=== PATIENT | male | born 1965 | race African-American/Black ===

== ENCOUNTER 2017-05-07 08:43 | Inpatient (IN) | payer SELFPAY ==
[2017-05-07] MEDS ORDERED: Etomidate* 2 MG/ML 20 ML VIAL (40 MG) ONE (08:47)
[2017-05-07] MEDS ORDERED: Succinylcholine* 20 MG/ML 10 ML VIAL ONE (08:47)
[2017-05-07] MEDS ORDERED: Midazolam* 1 MG/ML 10 ML VIAL (10 MG) ONE ×2 (08:47→11:27)
[2017-05-07] MEDS ORDERED: Amiodarone 360 MG IVPREMIX* 360 MG/200 ML BAG IV ONE ×3 (08:50→20:26)
[2017-05-07] MEDS ORDERED: Amiodarone 150 MG IVPREMIX* 150 MG/100 ML BAG IV ONE (08:50)
[2017-05-07] MEDS ORDERED: Aspirin SUPP* 300 MG PR ONE (08:58)
[2017-05-07] MEDS ORDERED: Heparin for STEMI(*) 5,000 UNITS/ML 1 ML VIAL IV ONE (09:02)
[2017-05-07] MEDS ORDERED: Propofol* 10 MG/ML 20 ML BTL IV PUSH ONE (09:11)
[2017-05-07] MEDS ORDERED: Propofol* 10 MG/ML 100 ML BTL ONE (09:14)
[2017-05-07 09:17] LABS: ABS Basophils 0.1 10^3/ul (0-0.2); ABS Eosinophils 0 10^3/ul (0-0.6); ABS Lymphocytes 2.1 10^3/ul (1.0-4.8); ABS Monocytes 0.7 10^3/ul (0-0.8); ABS Nucleated RBC 0 10^3/ul; Eosinophil % 0.2 % (0-6); Hematocrit 37 % (42-52); Hemoglobin 11.8 g/dl (14.0-18.0); Lymphocyte % 23.4 % (25-47); Mean Corpuscular HGB Conc 32 g/dl (31-36); Mean Corpuscular Hemoglobin 30 pg (27-31); Mean Corpuscular Volume 93 fL (80-94); Mean Platelet Volume 8 um3 (7.4-10.4); Nucleated Red Blood Cells % 0; Platelet Count 336 10^3/ul (150-450); Red Blood Count 3.93 10^6/ul (4.0-5.4); Red Cell Distribution Width 14 % (10.5-15); White Blood Count 8.9 10^3/ul (3.5-10.8)
[2017-05-07 09:27] LABS: INR 1.1 (0.77-1.02)
[2017-05-07 09:34] LABS: EGFR Non-African American 68.8 (>60)
[2017-05-07] MEDS ORDERED: Ticagrelor* 90 MG TAB PO ONE (09:35)
[2017-05-07] MEDS ORDERED: Iohexol 350 (CONTRAST) 200 ML MDV IV ONE ×2 (09:42→11:18)
[2017-05-07] MEDS ORDERED: Heparin(*) 1000 UNIT/ML 10 ML VIAL CATH LAB IV ONE ×2 (10:21→11:24)
[2017-05-07 10:46] LABS: EGFR Non-African American 88.6 (>60)
[2017-05-07] MEDS ORDERED: Nitroglycerin TAB 0.4 MG* 0.4 MG TAB SL PRN (11:11)
[2017-05-07] MEDS ORDERED: NS 0.9% 1000 ML* 1,000 ML IV SCH ×2 (11:15→14:51)
[2017-05-07] MEDS ORDERED: NITROGLYCERIN DRIP ONE (11:18)
[2017-05-07] MEDS ORDERED: Heparin 2 UNITS/ML IVPREMIX* 3,000 ML IV ONE (11:18)
[2017-05-07] MEDS ORDERED: Lidocaine 1% INJ* 10 MG/ML 30 ML SDV ONE (11:18)
[2017-05-07] MEDS ORDERED: VERAPAMIL 2.5 MG/ML 2 ML VIAL ** 5 mg/2 ml ONE (11:25)
[2017-05-07] MEDS ORDERED: Meperidine SYRINGE* 50 MG/ML ONE (11:45)
[2017-05-07] MEDS ORDERED: Meperidine SYRINGE* 50 MG/ML IV ONE (12:00)
[2017-05-07] MEDS ORDERED: Midazolam* 1 MG/ML 2 ML VIAL (2 MG) IV ONE (12:19)
[2017-05-07] MEDS ORDERED: Midazolam* 1 MG/ML 2 ML VIAL (2 MG) ONE (12:20)
[2017-05-07] MEDS ORDERED: VECURONIUM BROMIDE 10 MG INJ IV STA (12:20)
[2017-05-07] MEDS ORDERED: Meperidine SYRINGE* 50 MG/ML IV PRN ×2 (12:22→13:51)
[2017-05-07] MEDS ORDERED: busPIRone TAB* 30 MG PO PRN (12:27)
[2017-05-07] MEDS ORDERED: niCARdipine 0.1MG/ML IVPREMIX* 20 MG/200 ML BAG ONE (12:50)
[2017-05-07] MEDS ORDERED: hydrALAZINE IV* 20 MG/ML VIAL ONE (12:52)
[2017-05-07] MEDS ORDERED: Acetaminophen ADULT LIQ* 650 MG/20.3 ML UDC NG TUBE PRN (12:52)
[2017-05-07] MEDS ORDERED: Labetalol IV* 5 MG/ML 20 ML VIAL ONE (12:59)
[2017-05-07] MEDS: Propofol* 1000 MG (10 MG/ML 100 ml) @ Per Protocol (in ICU Pyxis) IV SCH ×3 (13:13→22:43)
[2017-05-07] MEDS ORDERED: niCARdipine 0.1MG/ML IVPREMIX* 20 MG/200 ML BAG IV SCH (14:00)
[2017-05-07] MEDS: Midazolam IV for DRIP* 100 MG in NS 0.9% 100 ML* 80 ML IV SCH (14:00)
--- NOTE | 2017-05-07 14:18 | RAD ---
INDICATION: Endotracheal tube placement. COMPARISON: There are no prior studies available for comparison. TECHNIQUE: A portable view of the chest was obtained. FINDINGS: The patient is status post endotracheal tube placement. The catheter tip projects over the midline approximately 5 cm above the serjio. There is a nasogastric tube which demonstrates normal course and projects over the left upper quadrant and off the film. There is also a catheter which projects to the right of the midline overlying the right upper quadrant. The catheter tip is likely in the region of the inferior vena cava. The heart is within normal limits in size for this portable exam. The lungs are clear. No pleural effusion is seen. IMPRESSION: 1. STATUS POST ENDOTRACHEAL AND NASOGASTRIC TUBE PLACEMENT. 2. THERE IS A CATHETER WHICH PROJECTS OVER THE RIGHT UPPER QUADRANT POSSIBLY A CENTRAL LINE. RECOMMEND CLINICAL CORRELATION.
--- NOTE | 2017-05-07 14:25 | ED ---
Jose Nowak Angela, scribed for Nikhil Ames MD on 05/07/17 at 0902 . HPI Cardiac - HPI Summary HPI Summary: OVERHEAD STEMI ALERT at 08:30, ETA 10 minutes. This pt is a 51 y/o male presenting to [facility] via EMS for unresponsiveness. 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 Per EMS, coworker started CPR on the pt. EMS arrives at site and pt is shocked twice and pt's pulses return. EMS reports the pt became unresponsive at approximately 08: 05. EMS states EKG shows inferior infarct but they are unable to transmit their EKG to the ED at 08:30 AM. HPI IS LIMITED DUE TO LEVEL 5 CAVEAT - pt is unresponsive. - History of Current Complaint Stated Complaint: UNRESPOSIVE Hx Obtained From: EMS Hx From Patient Unobtainable Due To: Other - level 5 caveat - pt is unresponsive Onset/Duration: Still Present Timing: Constant Aggravating Factor(s): Nothing Alleviating Factor(s): Nothing Associated Signs and Symptoms: Positive: Other: - unresponsive - Allergy/Home Medications Allergies/Adverse Reactions: Allergies Allergy/AdvReac Type Severity Reaction Status Date / Time No Known Allergies Allergy Verified 05/07/17 10:57 Home Medications: Home Medications Unobtainable [Unobtainable] 05/07/17 [History] PMH/Surg Hx/FS Hx/Imm Hx Previously Healthy: No - unknown due to level 5 caveat - pt is unresponsive Infectious Disease History: Denies: Traveled Outside the [place] in Last 30 Days - Family History Known Family History: Positive: Unknown - due to level 5 caveat - pt is unresponsive - Social History Alcohol Use: unknown due to level 5 caveat - pt is unresponsive Substance Use Comment - Amount & Last Used: unknown due to level 5 caveat - pt is unresponsive Smoking Status (MU): Unknown if Ever Smoked Review of Systems - ROS Summary Review of Systems Summary: ROS IS LIMITED DUE TO LEVEL 5 CAVEAT - pt is unresponsive Negative: Fever Neurological: Other - unresponsive All Other Systems Reviewed And Are Negative: No Physical Exam - Summary Physical Exam Summary: General: unresponsive Skin: warm, color reflects adequate perfusion, dry Head: normal ENT: intubated Neck: supple, nontender Respiratory: breath sounds present Cardiovascular: heart sounds are present Abdomen: soft, nontender Bowel: present Musculoskeletal: femoral pulses are present Neurological: unresponsive. Psychological: pt is unresponsive Triage Information Reviewed: Yes Vital Signs On Initial Exam: Initial Vitals Temp Pulse Resp BP Pulse Ox 0 F 0 0 00/0 0 05/07/17 08:43 05/07/17 08:43 05/07/17 08:43 05/07/17 08:43 05/07/17 08:43 Vital Signs Reviewed: Yes Procedures - Intubation Time of Intubation: 08:47 - using rapid sequence intubation #8 ET tube. Intubation Method: orotracheal Tube Size (cm): 8.0 Medications: Succinylcholine, Versed Breath Sounds after Intubation: equal Intubation Complications: no complications Progress/Xray Impression: Positive CO2 back and positive breath sounds bilaterally after intubation. Diagnostics - Vital Signs Vital Signs Temp Pulse Resp BP Pulse Ox 05/07/17 09:07 0 F 94 18 170/117 100 05/07/17 08:43 0 F 0 0 00/0 0 - Laboratory Lab Results: Lab Results 05/07/17 05/07/17 05/07/17 Range/Units 08:54 08:54 08:54 WBC 8.9 (3.5-10.8) 10^3/ul RBC 3.93 L (4.0-5.4) 10^6/ul Hgb 11.8 L (14.0-18.0) g/dl Hct 37 L (42-52) % MCV 93 (80-94) fL MCH 30 (27-31) pg MCHC 32 (31-36) g/dl RDW 14 (10.5-15) % Plt Count 336 (150-450) 10^3/ul MPV 8 (7.4-10.4) um3 Neut % (Auto) 67.3 (38-83) % Lymph % (Auto) 23.4 L (25-47) % [place] % (Auto) 7.9 (1-9) % Eos % (Auto) 0.2 (0-6) % Baso % (Auto) 1.2 (0-2) % Absolute Neuts (auto) 6.0 (1.5-7.7) 10^3/ul Absolute Lymphs (auto) 2.1 (1.0-4.8) 10^3/ul Absolute Monos (auto) 0.7 (0-0.8) 10^3/ul Absolute Eos (auto) 0 (0-0.6) 10^3/ul Absolute Basos (auto) 0.1 (0-0.2) 10^3/ul Absolute Nucleated RBC 0 10^3/ul Nucleated RBC % 0 INR (Anticoag Therapy) 1.10 H (0.77-1.02) APTT 29.3 (26.0-36.3) seconds ABG pH (7.35-7.45) ABG pCO2 (35-45) mmHg ABG pO2 (80-100) mmHg ABG HCO3 (19-31) mmol/L ABG O2 Saturation (95-98) % ABG Base Excess (-2.0-2.0) Sodium (133-145) mmol/L Potassium Chloride (101-111) mmol/L Carbon Dioxide (22-32) mmol/L Anion Gap (2-11) mmol/L BUN (6-24) mg/dL Creatinine (0.67-1.17) mg/dL Est GFR ( Amer) (>60) Est GFR (Non-Af Amer) (>60) BUN/Creatinine Ratio (8-20) Glucose (70-100) mg/dL Lactic Acid (0.5-2.0) mmol/L Calcium (8.6-10.3) mg/dL Total Bilirubin (0.2-1.0) mg/dL AST ALT (7-52) U/L Alkaline Phosphatase (34-104) U/L Total Creatine Kinase (10-223) U/L CK-MB (CK-2) (0.6-6.3) ng/mL Troponin I (<0.04) ng/mL B-Natriuretic Peptide 1345 H ( - 100) pg/mL Total Protein (6.4-8.9) g/dL Albumin (3.2-5.2) g/dL Globulin (2-4) g/dL Albumin/Globulin Ratio (1-3) LDL Cholesterol Direct mg/dL 05/07/17 05/07/17 05/07/17 Range/Units 08:54 08:54 09:28 WBC (3.5-10.8) 10^3/ul RBC (4.0-5.4) 10^6/ul Hgb (14.0-18.0) g/dl Hct (42-52) % MCV (80-94) fL MCH (27-31) pg MCHC (31-36) g/dl RDW (10.5-15) % Plt Count (150-450) 10^3/ul MPV (7.4-10.4) um3 Neut % (Auto) (38-83) % Lymph % (Auto) (25-47) % [place] % (Auto) (1-9) % Eos % (Auto) (0-6) % Baso % (Auto) (0-2) % Absolute Neuts (auto) (1.5-7.7) 10^3/ul Absolute Lymphs (auto) (1.0-4.8) 10^3/ul Absolute Monos (auto) (0-0.8) 10^3/ul Absolute Eos (auto) (0-0.6) 10^3/ul Absolute Basos (auto) (0-0.2) 10^3/ul Absolute Nucleated RBC 10^3/ul Nucleated RBC % INR (Anticoag Therapy) (0.77-1.02) APTT (26.0-36.3) seconds ABG pH 7.40 (7.35-7.45) ABG pCO2 34 L (35-45) mmHg ABG pO2 114 H (80-100) mmHg ABG HCO3 22.5 (19-31) mmol/L ABG O2 Saturation 100.1 H (95-98) % ABG Base Excess -3.1 L (-2.0-2.0) Sodium 139 (133-145) mmol/L Potassium TNP Chloride 104 (101-111) mmol/L Carbon Dioxide 23 (22-32) mmol/L Anion Gap 12 H (2-11) mmol/L BUN 16 (6-24) mg/dL Creatinine 1.12 (0.67-1.17) mg/dL Est GFR ( Amer) 88.5 (>60) Est GFR (Non-Af Amer) 68.8 (>60) BUN/Creatinine Ratio 14.3 (8-20) Glucose 162 H (70-100) mg/dL Lactic Acid 5.0 H* (0.5-2.0) mmol/L Calcium 9.3 (8.6-10.3) mg/dL Total Bilirubin 0.50 (0.2-1.0) mg/dL AST TNP ALT 50 (7-52) U/L Alkaline Phosphatase 128 H (34-104) U/L Total Creatine Kinase 280 H (10-223) U/L CK-MB (CK-2) 2.9 (0.6-6.3) ng/mL Troponin I 0.47 H* (<0.04) ng/mL B-Natriuretic Peptide ( - 100) pg/mL Total Protein 8.0 (6.4-8.9) g/dL Albumin 3.8 (3.2-5.2) g/dL Globulin 4.2 H (2-4) g/dL Albumin/Globulin Ratio 0.9 L (1-3) LDL Cholesterol Direct 101 mg/dL 05/07/17 05/07/17 Range/Units 09:53 10:15 WBC (3.5-10.8) 10^3/ul RBC (4.0-5.4) 10^6/ul Hgb (14.0-18.0) g/dl Hct (42-52) % MCV (80-94) fL MCH (27-31) pg MCHC (31-36) g/dl RDW (10.5-15) % Plt Count (150-450) 10^3/ul MPV (7.4-10.4) um3 Neut % (Auto) (38-83) % Lymph % (Auto) (25-47) % [place] % (Auto) (1-9) % Eos % (Auto) (0-6) % Baso % (Auto) (0-2) % Absolute Neuts (auto) (1.5-7.7) 10^3/ul Absolute Lymphs (auto) (1.0-4.8) 10^3/ul Absolute Monos (auto) (0-0.8) 10^3/ul Absolute Eos (auto) (0-0.6) 10^3/ul Absolute Basos (auto) (0-0.2) 10^3/ul Absolute Nucleated RBC 10^3/ul Nucleated RBC % INR (Anticoag Therapy) (0.77-1.02) APTT (26.0-36.3) seconds ABG pH (7.35-7.45) ABG pCO2 (35-45) mmHg ABG pO2 (80-100) mmHg ABG HCO3 (19-31) mmol/L ABG O2 Saturation (95-98) % ABG Base Excess (-2.0-2.0) Sodium 137 (133-145) mmol/L Potassium 3.6 3.6 Chloride 106 (101-111) mmol/L Carbon Dioxide 22 (22-32) mmol/L Anion Gap 9 (2-11) mmol/L BUN 16 (6-24) mg/dL Creatinine 0.90 (0.67-1.17) mg/dL Est GFR ( Amer) 114.0 (>60) Est GFR (Non-Af Amer) 88.6 (>60) BUN/Creatinine Ratio 17.8 (8-20) Glucose 136 H (70-100) mg/dL Lactic Acid (0.5-2.0) mmol/L Calcium 8.1 L (8.6-10.3) mg/dL Total Bilirubin (0.2-1.0) mg/dL AST 83 H ALT (7-52) U/L Alkaline Phosphatase (34-104) U/L Total Creatine Kinase (10-223) U/L CK-MB (CK-2) (0.6-6.3) ng/mL Troponin I (<0.04) ng/mL B-Natriuretic Peptide ( - 100) pg/mL Total Protein (6.4-8.9) g/dL Albumin (3.2-5.2) g/dL Globulin (2-4) g/dL Albumin/Globulin Ratio (1-3) LDL Cholesterol Direct mg/dL Result Diagrams: 05/07/17 08:54 05/07/17 10:15 Lab Statement: Any lab studies that have been ordered have been reviewed, and results considered in the medical decision making process. - EKG 08:45 Cardiac Rate: Tachycardia EKG Rhythm: Sinus Tachycardia - at 106 bpm Ectopy: None EKG Interpretation: Anterior MT. Re-Evaluation - Re-Evaluation First Eval Re-Evaluation Time: 09:02 Comment: Dr. Martínez, short filler bunch machine operator, at bedside. Disposition - Course Course Of Treatment: In the ED course the pt was given aspirin and heparin. Pt was not ventilating adequately on his own and not protecting his airway; intubated using rapid sequence intubation with a #8 ET tube, 23cm at the teeth. There was positive CO2 back and positive breath sounds bilaterally after intubation. I discussed pt care with Dr. Zhang and Dr. Martínez. TAKEN TO THE DIRECTOR OF CUSTOMER ACQUISITION BY DR ZHANG. - Diagnoses Provider Diagnoses: Respiratory failure During the Visit The Following Alert/Code Occurred: STEMI - overhead at 08:30, ETA 10 minutes - Physician Notifications Discussed Care Of Patient With: Francisco Zhang Time Discussed With Above Provider: 08:29 Instructed by Provider To: Other - I discussed pt care with Dr. Zhang, who reports to call a STEMI alert. - Critical Care Time Critical Care Time: 30-74 min Discharge - Discharge Plan Condition: Critical Disposition: ADMITTED TO [facility] The documentation as recorded by the Jose sahu Angela accurately reflects the service I personally performed and the decisions made by me, Nikhil mAes MD.
[2017-05-07] MEDS ORDERED: VECURONIUM BROMIDE 10 MG INJ IV ONE (14:56)
[2017-05-07] MEDS ORDERED: Cisatracurium* 100 MG in NS 0.9% 250 ML* 200 ML IVPB SCH (15:00)
--- NOTE | 2017-05-07 15:16 | HP ---
H&P (Free Text) History and Physical: History and Physical - Critical Care Limitations in history/physical: intubated, post arrest Date of admission: 05/07/2017 HPI: 51y M with unknown past medical history. Patient was found down at his work , no trauma but suddenly collapsed. Bystander CPR started, EMS called. On Arrival given 2 defibrillations, ROSC was achieved and no further CPR as I was told. They noted ST elevations on EMS EKG but unable to transmit. On arrival to ER, EKG with anterior ST elevations noted. Code called (ABC and STEMI). Patient was not responsive, poor resp effort, intubated by ER physician. BP stable 90- 100s, in NSR. Given asa. I/O already in place on right tibia. Taken to [facility] for emergent angiogram/cath. Cath demonstrated occluded LAD with collaterals. Attempt made to cross lesion but unable to. Cardiology has mentioned this appeared to be a chronic occlusion with collaterals. He returned to ICU, intubated, on propofol sedation. 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 No heparin. On IV nitroglycerin infusion. Very hypertensive to 220-240s systolic. Given hydralazine 20mg iv push and then labetalol 10mg iv push. Started cardene infusion. On propofol, added versed 2mg iv push, then infusion. Given vecuronium 7mg iv push only. Amiodarone infusion. Hypothermia protocol started. Discussed with family at bedside now about current condition, they are aware of status and hypothermia protocol. ROS: unable, intubated/post arrest PMHx: none PSHx: h/o trauma with metal plate in head, ACLS tear in past. 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 Allergies: NKDA Home Medications: Unobtainable [Unobtainable] 05/07/17 [History] Tele: NSR Vitals: Vital Signs Temp 0 F 05/07/17 09:07 Pulse 94 05/07/17 09:07 Resp 17 05/07/17 14:00 BP 170/117 05/07/17 09:07 Pulse Ox 100 05/07/17 09:07 Intake & Output 05/06/17 05/07/17 05/07/17 18:59 06:59 18:59 Intake Total 43 Balance 43 Weight 140 lb Intake: Medicated IV 43 CC - Nitroglycerine/ 43 Tridil O2/Vent: 16/500/+5/40% Infusions: propofol, versed, NS, cardene (on hold) Current Medications: Acetaminophen (Tylenol Adult Liq*) 650 mg NG TUBE Q4H PRN PRN Reason: TEMP > TARGET 33 DEG. CELCIUS Aspirin (Aspirin Low Dose Tab*) 81 mg NG TUBE DAILY GERARD Atorvastatin Calcium (Lipitor*) 80 mg NG TUBE 1700 GERARD Buspirone HCl (Buspar Tab*) 30 mg PO Q8H PRN PRN Reason: shivering Chlorhexidine Gluconate (Peridex Mouth Wash 0.12%*) 15 ml TOPICAL Q4H GERARD Heparin Sodium (Porcine) (Heparin Vial(*)) 5,000 units SUBCUT Q8HR GERARD Midazolam HCl 100 mg/ Sodium (Chloride) 100 mls @ 3 mls/hr IV Q24H GERARD; 3 MG/HR PRN Reason: Protocol Last Admin: 05/07/17 14:00 Dose: 3 mls/hr Propofol (Diprivan*) 100 mls @ 19.051 mls/hr IV .(Initial Rate) GERARD; 50 MCG/KG/ MIN PRN Reason: Protocol Last Admin: 05/07/17 13:13 Dose: 25.5 mls/hr Nicardipine/Sodium Chloride (Cardene 0.1mg/Ml Ivpremix*) 20 mg in 200 mls @ 100 mls/hr IV .per rate GERARD PRN Reason: 10 MG/HR Amiodarone HCl (Nexterone 360 Mg/200 Ml Ivpremix*) 360 mg in 200 mls @ 33.333 mls/hr IV ONCE ONE PRN Reason: 1 MG/MIN Stop: 05/07/17 19:54 Sodium Chloride (Ns 0.9% 1000 Ml*) 1,000 mls @ 75 mls/hr IV .per rate GERARD Cisatracurium Besylate 100 mg/ (Sodium Chloride) 250 mls @ 19.05 mls/hr IVPB .per rate GERARD PRN Reason: 2 MCG/KG/MIN Meperidine HCl (Demerol Syringe*) 25 mg IV Q4H PRN PRN Reason: shivering Metoprolol Tartrate (Lopressor Tab*) 25 mg PO Q6H GERARD Nitroglycerin (Nitroglycerin Tab 0.4 Mg*) 0.4 mg SL Q5M PRN PRN Reason: ANGINA Pantoprazole Sodium (Protonix Iv*) 40 mg IV DAILY [facility] Physical Exam: General: intubated, sedated/unresponsive Head: normocephalic, atraumatic HEENT: no pallor, no icterus, moist mucous membranes Neck: soft, supple, no jvd, CVS: normal rate, regular, no murmur Resp: bilateral air entry, no rhales, no wheeze, no rhonchi, no acc muscle use Abdomen: soft, nondistended, bowel sounds present Ext: pulses+, cool, no edema Skin: intact, no breakdown, no dryness Neuro: intubated, sedated/unresponsive Labs: Laboratory Results - last 24 hr 05/07/17 05/07/17 05/07/17 08:54 08:54 08:54 WBC 8.9 RBC 3.93 L Hgb 11.8 L Hct 37 L MCV 93 MCH 30 MCHC 32 RDW 14 Plt Count 336 MPV 8 Neut % (Auto) 67.3 Lymph % (Auto) 23.4 L [place] % (Auto) 7.9 Eos % (Auto) 0.2 Baso % (Auto) 1.2 Absolute Neuts (auto) 6.0 Absolute Lymphs (auto) 2.1 Absolute Monos (auto) 0.7 Absolute Eos (auto) 0 Absolute Basos (auto) 0.1 Absolute Nucleated RBC 0 Nucleated RBC % 0 INR (Anticoag Therapy) 1.10 H APTT 29.3 ABG pH ABG pCO2 ABG pO2 ABG HCO3 ABG O2 Saturation ABG Base Excess Sodium Potassium Chloride Carbon Dioxide Anion Gap BUN Creatinine Est GFR ( Amer) Est GFR (Non-Af Amer) BUN/Creatinine Ratio Glucose Lactic Acid Calcium Total Bilirubin AST ALT Alkaline Phosphatase Total Creatine Kinase CK-MB (CK-2) Troponin I B-Natriuretic Peptide 1345 H Total Protein Albumin Globulin Albumin/Globulin Ratio LDL Cholesterol Direct 05/07/17 05/07/17 05/07/17 08:54 08:54 09:28 WBC RBC Hgb Hct MCV MCH MCHC RDW Plt Count MPV Neut % (Auto) Lymph % (Auto) [place] % (Auto) Eos % (Auto) Baso % (Auto) Absolute Neuts (auto) Absolute Lymphs (auto) Absolute Monos (auto) Absolute Eos (auto) Absolute Basos (auto) Absolute Nucleated RBC Nucleated RBC % INR (Anticoag Therapy) APTT ABG pH 7.40 ABG pCO2 34 L ABG pO2 114 H ABG HCO3 22.5 ABG O2 Saturation 100.1 H ABG Base Excess -3.1 L Sodium 139 Potassium TNP Chloride 104 Carbon Dioxide 23 Anion Gap 12 H BUN 16 Creatinine 1.12 Est GFR ( Amer) 88.5 Est GFR (Non-Af Amer) 68.8 BUN/Creatinine Ratio 14.3 Glucose 162 H Lactic Acid 5.0 H* Calcium 9.3 Total Bilirubin 0.50 AST TNP ALT 50 Alkaline Phosphatase 128 H Total Creatine Kinase 280 H CK-MB (CK-2) 2.9 Troponin I 0.47 H* B-Natriuretic Peptide Total Protein 8.0 Albumin 3.8 Globulin 4.2 H Albumin/Globulin Ratio 0.9 L LDL Cholesterol Direct 101 05/07/17 05/07/17 09:53 10:15 WBC RBC Hgb Hct MCV MCH MCHC RDW Plt Count MPV Neut % (Auto) Lymph % (Auto) [place] % (Auto) Eos % (Auto) Baso % (Auto) Absolute Neuts (auto) Absolute Lymphs (auto) Absolute Monos (auto) Absolute Eos (auto) Absolute Basos (auto) Absolute Nucleated RBC Nucleated RBC % INR (Anticoag Therapy) APTT ABG pH ABG pCO2 ABG pO2 ABG HCO3 ABG O2 Saturation ABG Base Excess Sodium 137 Potassium 3.6 3.6 Chloride 106 Carbon Dioxide 22 Anion Gap 9 BUN 16 Creatinine 0.90 Est GFR ( Amer) 114.0 Est GFR (Non-Af Amer) 88.6 BUN/Creatinine Ratio 17.8 Glucose 136 H Lactic Acid Calcium 8.1 L Total Bilirubin AST 83 H ALT Alkaline Phosphatase Total Creatine Kinase CK-MB (CK-2) Troponin I B-Natriuretic Peptide Total Protein Albumin Globulin Albumin/Globulin Ratio LDL Cholesterol Direct Imaging: cxr 05/07 ett above serjio, no infiltrate/effusion Assessment: 51y M with unknown past medical history. Patient was found down at his work, no trauma but suddenly collapsed. Bystander CPR started, EMS called. On Arrival given 2 defibrillations, ROSC was achieved and no further CPR as I was told. They noted ST elevations on EMS EKG but unable to transmit. On arrival to ER, EKG with anterior ST elevations noted. Code called (ABC and STEMI ). Patient was not responsive, poor resp effort, intubated by ER physician. BP stable 90-100s, in NSR. 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 Started on hypothermia protocol -VT/VF Cardiac arrest -Acute hypoxic respiratory failure -Severe CAD of LAD, occluded with collaterals -Hypothermia protocol -Metabolic acidosis -Hypertensive Emergency -Anemia history of alcohol abuse Plan: Neuro- post arrest, unresponsive. Started on hypothermia protocol. On propofol/ versed. Given vecuroneum with some improvement of shivering. Redoes again now. Increased versed. May need to start cisastracurium infusion for better shivering control. Meperidine and buspirone prn. Obtain CT head today for baseline. CVS- s/p VT/VF arrest. Cont amio infusion. s/p cath with chronic occlusion. Suspect chronic ischemia as etiology of arrest. Obtain ECHO. Cont asa/ brillinta. No IV heparin. Medical management. BP >240, given hydralazine and labetlol. Start cardene infusion, titrate to keep sbp 160s for now given chronic longstanding hypertension. EKG in AM, trend trop, trend LA. NS infusion 75cc/hour, watch urine output. BMP q4h for K check. Intravascular cooling via right fem venous catheter. Resp- intubated, check repeat abg now. Cxr reviewed, no acute process. ID- hypothermic now. No wbc elevation. No clear source of infection. No abx indicated. GI- npo. Ngt to be placed. PPI daily IV. Renal- Cr okay. Metabolic acidosis+. K okay. Check BMP q4h while hypothermic. Cont NS infusion, monitor urine output. Hoff in place. Heme- anemia, no bleeding. Plt okay. Cont DAPT for CAD. Endo- fingersticks as needed, maintain BS <200 Musculsk- bedrest, pressure ulcer proph. Wounds- none Nutrition- npo DVT prophylaxis: scd and heparin sq GI prophylaxis: ppi Central Line: right fem 05/07 Arterial Line: right radial 05/07 Hoff Cathetor: yes Disposition: ICU Code Status: full code Total Critical Care time is 90 minutes, excluding procedures/teaching Vito Martínez MD Correspondence Section Supervisor (Electronically Signed)
--- NOTE | 2017-05-07 15:20 | PN ---
Progress Note - Progress Note Date of Service: 05/07/17 Note: Arterial Line Procedure Note Indication: hypotension/shock Consent was emergent - Prior labs/history was reviewed prior to procedure - Full sterile precautions with chlorhexidine/full drapes/gowns/gloves utilized - right radial artery visualized with US - Vessel accessed with return of pulsatile blood. 1 attempt was made to access vessel. A cathetor was threaded over wire into vessel. Good arterial waveform was observed on monitor. - Arterial Catheter was sutured to site - Adequate hemostasis was achieved, EBL <3 cc No immediate complications noted, patient tolerated procedure well. Dressing applied to site. Vito Martínez MD Crystallizer Operator (electronically signed)
[2017-05-07 17:28] LABS: EGFR Non-African American 122.5 (>60)
[2017-05-07] MEDS ORDERED: KCL 20 MEQ/100 ML IVPREMIX* 20 MEQ/100 ML BAG IV SCH (18:00)
[2017-05-07] MEDS: Chlorhexidine MOUTHWASH 0.12%* 15 ML UDC TOPICAL SCH ×3 (18:12→23:37)
[2017-05-07] MEDS: Metoprolol Tartrate TAB* 25 MG PO SCH ×3 (18:12→23:37)
[2017-05-07] MEDS: Cisatracurium* 100 MG in NS 0.9% 250 ML* 200 ML IVPB SCH (18:21)
[2017-05-07] MEDS ORDERED: POTASSIUM CHLORIDE IVPB ONE (19:00)
[2017-05-07] MEDS ORDERED: NS 0.9% IVPB ONE (19:00)
[2017-05-07] MEDS: Atorvastatin* 80 MG TAB NG TUBE SCH (20:21)
[2017-05-07] MEDS ORDERED: Magnesium Sulfate 2 GM IV* 2 GM/50 ML BAG IVPB ONE (20:23)
[2017-05-07] MEDS ORDERED: Magnesium Sulfate 2 GM IV* 2 GM/50 ML BAG ONE (20:26)
[2017-05-07] MEDS ORDERED: Amiodarone 360 MG IVPREMIX* 360 MG/200 ML BAG IV SCH (20:30)
[2017-05-07] MEDS: Heparin VIAL(*) 5000 UNITS/ML VIAL (FIVE THOUSAND) SUBCUT SCH (20:36)
[2017-05-07 21:09] LABS: EGFR Non-African American 112.8 (>60)
[2017-05-08 00:41] LABS: EGFR Non-African American 147.1 (>60)
[2017-05-08 03:37] LABS: EGFR Non-African American 144.3 (>60)
[2017-05-08] MEDS: Chlorhexidine MOUTHWASH 0.12%* 15 ML UDC TOPICAL SCH ×5 (04:19→20:42)
[2017-05-08] MEDS: Propofol* 1000 MG (10 MG/ML 100 ml) @ Per Protocol (in ICU Pyxis) IV SCH ×3 (04:19→18:30)
[2017-05-08] MEDS ORDERED: Potassium Chloride IV* 40 MEQ in NS 0.9% 250 ML* 250 ML IVPB ONE (05:00)
[2017-05-08] MEDS ORDERED: KCL 20 MEQ/100 ML IVPREMIX* 20 MEQ/100 ML BAG IV SCH (05:00)
[2017-05-08 06:14] LABS: ABS Basophils 0 10^3/ul (0-0.2); ABS Eosinophils 0 10^3/ul (0-0.6); ABS Lymphocytes 0.5 10^3/ul (1.0-4.8); ABS Monocytes 0.3 10^3/ul (0-0.8); ABS Neutrophils 5.2 10^3/ul (1.5-7.7); ABS Nucleated RBC 0 10^3/ul; Eosinophil % 0 % (0-6); Hematocrit 35 % (42-52); Hemoglobin 11.5 g/dl (14.0-18.0); Lymphocyte % 8.4 % (25-47); Mean Corpuscular HGB Conc 33 g/dl (31-36); Mean Corpuscular Hemoglobin 30 pg (27-31); Mean Corpuscular Volume 91 fL (80-94); Mean Platelet Volume 8 um3 (7.4-10.4); Nucleated Red Blood Cells % 0; Platelet Count 281 10^3/ul (150-450); Red Blood Count 3.82 10^6/ul (4.0-5.4); Red Cell Distribution Width 14 % (10.5-15)
[2017-05-08] MEDS: Metoprolol Tartrate TAB* 25 MG PO SCH ×3 (06:16→19:03)
--- NOTE | 2017-05-08 06:16 | CONS ---
CC: Dr. Haskins INTERVENTIONAL CARDIOLOGY CONSULT NOTE: DATE OF CONSULT: 05/07/17 PRIMARY: Unknown. HISTORY OF PRESENT ILLNESS: This 51-year-old -[place] male presented to the ER after in-the- field VF arrest with resuscitation. EKG shows anterior ST elevation. Interventional Cardiology was consulted because of suspected ST elevation infarct. We have no previous medical records on this patient, he is intubated and sedated, has not awakened si nce he was resuscitated in the field. We are unable to obtain any past medical history currently. According to coworkers, he apparently passed out around 8 a.m. this morning, had a shockable rhythm a nd was resuscitated, but apparently has not awakened. He received amiodarone 150 mg IV in the field and additional 150 mg IV in the ER. He was intubated at arrival in the ER. No family is present. PAST MEDICAL HISTORY: Unknown. PRIOR MEDICATIONS: Unknown. ALLERGIES: Unknown. FAMILY HISTORY: Unknown. SOCIAL HISTORY: Unknown REVIEW OF SYSTEMS: Unobtainable. PHYSICAL EXAM: He is a slender -[place] male intubated, blood pressure 156/134. His lungs a re clear laterally. He has no rales or wheezes. JVP is not elevated. Carotids are palpable without bruits. HEENT: He has an ET tube, pupils are equal and reactive. He has no xanthelasma or scleral injection. Cardiac Exam: Irregular rhythm, no audible gallop or murmur. No rub. Abdomen: He does have bowel sounds. Aorta is nonpalpable, but not enlarged, no abdominal bruit. Radial, femoral, an d pedal pulses are palpable. He has no cyanosis, clubbing or edema. DIAGNOSTIC STUDIES/LAB DATA: EKG shows very poor R-wave progression V1 through V3 with precordial ST elevation consistent with an acute ST elevation infarct. Hemoglobin 11.8, hematocrit 37, BUN 16, cre atinine 1.12, random blood sugar 162. Lactate high at 5. Alkaline phosphatase elevated at 128, CPK 2 80, MB 2.9, first troponin 0.47. BNP elevated at 1345. LDL 101, potassium 3.6. IMPRESSION: Acute anterior wall ST elevation infarct with [id number] VF arrest, post resuscitation . He was brought to the quality assurance qa lab technician for emergent catheterization. He will be admitted to the intensivis t service, will be cooled. [id number] #: [id number]
[2017-05-08] MEDS: Heparin VIAL(*) 5000 UNITS/ML VIAL (FIVE THOUSAND) SUBCUT SCH ×3 (06:30→23:06)
[2017-05-08 06:31] LABS: EGFR Non-African American 147.1 (>60)
[2017-05-08] MEDS: Cisatracurium* 100 MG in NS 0.9% 250 ML* 200 ML IVPB SCH ×2 (08:19→21:38)
[2017-05-08] MEDS: Midazolam IV for DRIP* 100 MG in NS 0.9% 100 ML* 80 ML IV SCH ×2 (08:22→20:41)
[2017-05-08] MEDS ORDERED: NS 0.9% 500 ML* 500 ML IV ONE (08:50)
[2017-05-08] MEDS ORDERED: NS 0.9% 1000 ML* 1,000 ML IV SCH ×3 (08:51→17:27)
--- NOTE | 2017-05-08 08:55 | PN ---
Progress Note - Progress Note Date of Service: 05/08/17 Note: Progress Note - Critical Care 24 hour events: -remains intubated, on sedation/paralyitcs -no overnight events -still receiving IV potassium -unable to do CT brain, plate in head? -vaishali to 50s, BP 100-120s, off cardene not whit after starting Tele: sinus vaishali Vitals: Vital Signs Temp 91.2 F 05/08/17 07:01 Pulse 48 05/08/17 07:01 Resp 16 05/08/17 08:22 BP 117/75 05/08/17 07:01 Pulse Ox 100 05/08/17 07:01 Intake & Output 05/07/17 05/08/17 05/08/17 18:59 06:59 18:59 Intake Total 1858 2042 Output Total 1350 3410 Balance 508 -1368 Weight 150 lb 12.739 oz 140 lb 14.006 oz Intake: IV Fluids 1603 1001 NS (0.9%) 1603 1001 IVPB 252 NS (0.9%) 252 Medicated IV 255 789 CC - Amiodarone 44 287 CC - Cisatracurium 192 CC - Nitroglycerine/ 43 Tridil CC - Propofol/Diprivan 157 243 midazolam 11 67 Output: Deutsch 1350 3410 O2/Vent: 16/500/+5/30% Infusions: propofol, versed, NS, cardene (on hold), nimbex, amiodarone Current Medications: Acetaminophen (Tylenol Adult Liq*) 650 mg NG TUBE Q4H PRN PRN Reason: TEMP > TARGET 33 DEG. CELCIUS Aspirin (Aspirin Low Dose Tab*) 81 mg NG TUBE DAILY [facility] Atorvastatin Calcium (Lipitor*) 80 mg NG TUBE 1700 [facility] Last Admin: 05/07/17 20:21 Dose: Not Given Buspirone HCl (Buspar Tab*) 30 mg PO Q8H PRN PRN Reason: shivering Chlorhexidine Gluconate (Peridex Mouth Wash 0.12%*) 15 ml TOPICAL Q4H [facility] Last Admin: 05/08/17 04:19 Dose: 15 ml Heparin Sodium (Porcine) (Heparin Vial(*)) 5,000 units SUBCUT Q8HR [facility] Last Admin: 05/08/17 06:30 Dose: 5,000 units Midazolam HCl 100 mg/ Sodium (Chloride) 100 mls @ 3 mls/hr IV Q24H [facility]; 3 MG/HR PRN Reason: Protocol Last Admin: 05/08/17 08:22 Dose: 5 mls/hr Propofol (Diprivan*) 100 mls @ 19.051 mls/hr IV .(Initial Rate) GERARD; 50 MCG/KG/ MIN PRN Reason: Protocol Last Admin: 05/08/17 04:19 Dose: 19.051 mls/hr Cisatracurium Besylate 100 mg/ (Sodium Chloride) 250 mls @ 19.05 mls/hr IVPB Q13H [facility] PRN Reason: 2 MCG/KG/MIN Last Admin: 05/08/17 08:19 Dose: 15.4 mls/hr Amiodarone HCl (Nexterone 360 Mg/200 Ml Ivpremix*) 360 mg in 200 mls @ 16.667 mls/hr IV PER RATE [facility] PRN Reason: 0.5 MG/MIN Stop: 05/09/17 08:30 Potassium Chloride 40 meq/ (Sodium Chloride) 270 mls @ 67.5 mls/hr IVPB ONCE ONE Stop: 05/08/17 08:59 Last Admin: 05/08/17 04:33 Dose: 67.5 mls/hr Sodium Chloride (Ns 0.9% 500 Ml*) 500 mls @ 1,000 mls/hr IV ONCE ONE Stop: 05/08/17 09:19 Potassium Chloride (Potassium Chloride 10 Meq/50 Ml Ivpremix*) 10 meq in 50 mls @ 50 mls/hr IV Q1H [facility] Stop: 05/08/17 11:59 Sodium Chloride (Ns 0.9% 1000 Ml*) 1,000 mls @ 100 mls/hr IV .per rate [facility] Meperidine HCl (Demerol Syringe*) 25 mg IV Q4H PRN PRN Reason: shivering Metoprolol Tartrate (Lopressor Tab*) 25 mg PO Q6H [facility] Last Admin: 05/08/17 06:16 Dose: Not Given Nitroglycerin (Nitroglycerin Tab 0.4 Mg*) 0.4 mg SL Q5M PRN PRN Reason: ANGINA Pantoprazole Sodium (Protonix Iv*) 40 mg IV DAILY [facility] Ticagrelor (Brilinta*) 90 mg PO BID [facility] Physical Exam: General: intubated, sedated/unresponsive Head: normocephalic, atraumatic HEENT: no pallor, no icterus, moist mucous membranes Neck: soft, supple, no jvd, CVS: normal rate, regular, no murmur Resp: bilateral air entry, no rhales, no wheeze, no rhonchi, no acc muscle use Abdomen: soft, nondistended, bowel sounds present Ext: pulses+, cool, no edema Skin: intact, no breakdown, no dryness Neuro: intubated, sedated/unresponsive Labs: Laboratory Results - last 24 hr 05/07/17 05/07/17 05/07/17 08:54 08:54 08:54 WBC 8.9 RBC 3.93 L Hgb 11.8 L Hct 37 L MCV 93 MCH 30 MCHC 32 RDW 14 Plt Count 336 MPV 8 Neut % (Auto) 67.3 Lymph % (Auto) 23.4 L Colbert % (Auto) 7.9 Eos % (Auto) 0.2 Baso % (Auto) 1.2 Absolute Neuts (auto) 6.0 Absolute Lymphs (auto) 2.1 Absolute Monos (auto) 0.7 Absolute Eos (auto) 0 Absolute Basos (auto) 0.1 Absolute Nucleated RBC 0 Nucleated RBC % 0 INR (Anticoag Therapy) 1.10 H APTT 29.3 Patient Temperature ABG pH ABG pH (Temp Correct) ABG pCO2 ABG pCO2 (Temp Corrct ABG pO2 ABG pO2 (Temp Correct ABG HCO3 ABG O2 Saturation ABG Base Excess Respiration Rate O2 Delivery Device Ventilator Type Vent Mode FiO2 Inspiratory Time PEEP Pressure Support Pressure Control EPAP IPAP BiPAP Sodium Potassium Chloride Carbon Dioxide Anion Gap BUN Creatinine Est GFR ( Amer) Est GFR (Non-Af Amer) BUN/Creatinine Ratio Glucose POC Glucose (mg/dL) Hemoglobin A1c Lactic Acid Calcium Magnesium Total Bilirubin AST ALT Alkaline Phosphatase Total Creatine Kinase CK-MB (CK-2) Troponin I B-Natriuretic Peptide 1345 H Total Protein Albumin Globulin Albumin/Globulin Ratio Triglycerides Cholesterol LDL Cholesterol LDL Cholesterol Direct HDL Cholesterol TSH Free T4 Total T3 05/07/17 05/07/17 05/07/17 08:54 08:54 09:28 WBC RBC Hgb Hct MCV MCH MCHC RDW Plt Count MPV Neut % (Auto) Lymph % (Auto) Colbert % (Auto) Eos % (Auto) Baso % (Auto) Absolute Neuts (auto) Absolute Lymphs (auto) Absolute Monos (auto) Absolute Eos (auto) Absolute Basos (auto) Absolute Nucleated RBC Nucleated RBC % INR (Anticoag Therapy) APTT Patient Temperature ABG pH 7.40 ABG pH (Temp Correct) ABG pCO2 34 L ABG pCO2 (Temp Corrct ABG pO2 114 H ABG pO2 (Temp Correct ABG HCO3 22.5 ABG O2 Saturation 100.1 H ABG Base Excess -3.1 L Respiration Rate O2 Delivery Device Ventilator Type Vent Mode FiO2 Inspiratory Time PEEP Pressure Support Pressure Control EPAP IPAP BiPAP Sodium 139 Potassium TNP Chloride 104 Carbon Dioxide 23 Anion Gap 12 H BUN 16 Creatinine 1.12 Est GFR ( Amer) 88.5 Est GFR (Non-Af Amer) 68.8 BUN/Creatinine Ratio 14.3 Glucose 162 H POC Glucose (mg/dL) Hemoglobin A1c Lactic Acid 5.0 H* Calcium 9.3 Magnesium Total Bilirubin 0.50 AST TNP ALT 50 Alkaline Phosphatase 128 H Total Creatine Kinase 280 H CK-MB (CK-2) 2.9 Troponin I 0.47 H* B-Natriuretic Peptide Total Protein 8.0 Albumin 3.8 Globulin 4.2 H Albumin/Globulin Ratio 0.9 L Triglycerides Cholesterol LDL Cholesterol LDL Cholesterol Direct 101 HDL Cholesterol TSH Free T4 Total T3 05/07/17 05/07/17 05/07/17 09:53 10:15 16:10 WBC RBC Hgb Hct MCV MCH MCHC RDW Plt Count MPV Neut % (Auto) Lymph % (Auto) Colbert % (Auto) Eos % (Auto) Baso % (Auto) Absolute Neuts (auto) Absolute Lymphs (auto) Absolute Monos (auto) Absolute Eos (auto) Absolute Basos (auto) Absolute Nucleated RBC Nucleated RBC % INR (Anticoag Therapy) APTT Patient Temperature Not Reportable ABG pH 7.51 H ABG pH (Temp Correct) Not Reportable ABG pCO2 32 L ABG pCO2 (Temp Corrct Not Reportable ABG pO2 168 H ABG pO2 (Temp Correct Not Reportable ABG HCO3 27.1 ABG O2 Saturation 100.0 H ABG Base Excess 2.8 H Respiration Rate Not Reportable O2 Delivery Device Vent Ventilator Type Not Reportable Vent Mode Not Reportable FiO2 40 Inspiratory Time Not Reportable PEEP Not Reportable Pressure Support Not Reportable Pressure Control Not Reportable EPAP Not Reportable IPAP Not Reportable BiPAP Not Reportable Sodium 137 Potassium 3.6 3.6 Chloride 106 Carbon Dioxide 22 Anion Gap 9 BUN 16 Creatinine 0.90 Est GFR ( Amer) 114.0 Est GFR (Non-Af Amer) 88.6 BUN/Creatinine Ratio 17.8 Glucose 136 H POC Glucose (mg/dL) Hemoglobin A1c Lactic Acid Calcium 8.1 L Magnesium Total Bilirubin AST 83 H ALT Alkaline Phosphatase Total Creatine Kinase CK-MB (CK-2) Troponin I B-Natriuretic Peptide Total Protein Albumin Globulin Albumin/Globulin Ratio Triglycerides Cholesterol LDL Cholesterol LDL Cholesterol Direct HDL Cholesterol TSH Free T4 Total T3 05/07/17 05/07/17 05/07/17 16:19 16:19 16:19 WBC RBC Hgb Hct MCV MCH MCHC RDW Plt Count MPV Neut % (Auto) Lymph % (Auto) Colbert % (Auto) Eos % (Auto) Baso % (Auto) Absolute Neuts (auto) Absolute Lymphs (auto) Absolute Monos (auto) Absolute Eos (auto) Absolute Basos (auto) Absolute Nucleated RBC Nucleated RBC % INR (Anticoag Therapy) APTT Patient Temperature ABG pH ABG pH (Temp Correct) ABG pCO2 ABG pCO2 (Temp Corrct ABG pO2 ABG pO2 (Temp Correct ABG HCO3 ABG O2 Saturation ABG Base Excess Respiration Rate O2 Delivery Device Ventilator Type Vent Mode FiO2 Inspiratory Time PEEP Pressure Support Pressure Control EPAP IPAP BiPAP Sodium 138 Potassium 3.0 L Chloride 103 Carbon Dioxide 26 Anion Gap 9 BUN 11 Creatinine 0.68 Est GFR ( Amer) 157.5 Est GFR (Non-Af Amer) 122.5 BUN/Creatinine Ratio 16.2 Glucose 126 H POC Glucose (mg/dL) Hemoglobin A1c 5.8 H Lactic Acid 0.8 Calcium 8.3 L Magnesium 1.4 L Total Bilirubin AST ALT Alkaline Phosphatase Total Creatine Kinase CK-MB (CK-2) 9.5 H Troponin I 0.49 H* B-Natriuretic Peptide Total Protein Albumin Globulin Albumin/Globulin Ratio Triglycerides 60 Cholesterol 148 LDL Cholesterol 82 LDL Cholesterol Direct HDL Cholesterol 53.9 TSH 0.31 L Free T4 1.08 Total T3 0.69 L 05/07/17 05/07/17 05/07/17 16:38 20:00 20:04 WBC RBC Hgb Hct MCV MCH MCHC RDW Plt Count MPV Neut % (Auto) Lymph % (Auto) Colbert % (Auto) Eos % (Auto) Baso % (Auto) Absolute Neuts (auto) Absolute Lymphs (auto) Absolute Monos (auto) Absolute Eos (auto) Absolute Basos (auto) Absolute Nucleated RBC Nucleated RBC % INR (Anticoag Therapy) APTT Patient Temperature ABG pH ABG pH (Temp Correct) ABG pCO2 ABG pCO2 (Temp Corrct ABG pO2 ABG pO2 (Temp Correct ABG HCO3 ABG O2 Saturation ABG Base Excess Respiration Rate O2 Delivery Device Ventilator Type Vent Mode FiO2 Inspiratory Time PEEP Pressure Support Pressure Control EPAP IPAP BiPAP Sodium 139 Potassium 2.8 L Chloride 103 Carbon Dioxide 26 Anion Gap 10 BUN 10 Creatinine 0.73 Est GFR ( Amer) 145.1 Est GFR (Non-Af Amer) 112.8 BUN/Creatinine Ratio 13.7 Glucose 110 H POC Glucose (mg/dL) 134 H 111 H Hemoglobin A1c Lactic Acid Calcium 8.5 L Magnesium Total Bilirubin AST ALT Alkaline Phosphatase Total Creatine Kinase CK-MB (CK-2) 18.5 H Troponin I B-Natriuretic Peptide Total Protein Albumin Globulin Albumin/Globulin Ratio Triglycerides Cholesterol LDL Cholesterol LDL Cholesterol Direct HDL Cholesterol TSH Free T4 Total T3 05/07/17 05/07/17 05/08/17 23:00 23:00 02:00 WBC RBC Hgb Hct MCV MCH MCHC RDW Plt Count MPV Neut % (Auto) Lymph % (Auto) Colbert % (Auto) Eos % (Auto) Baso % (Auto) Absolute Neuts (auto) Absolute Lymphs (auto) Absolute Monos (auto) Absolute Eos (auto) Absolute Basos (auto) Absolute Nucleated RBC Nucleated RBC % INR (Anticoag Therapy) APTT Patient Temperature ABG pH ABG pH (Temp Correct) ABG pCO2 ABG pCO2 (Temp Corrct ABG pO2 ABG pO2 (Temp Correct ABG HCO3 ABG O2 Saturation ABG Base Excess Respiration Rate O2 Delivery Device Ventilator Type Vent Mode FiO2 Inspiratory Time PEEP Pressure Support Pressure Control EPAP IPAP BiPAP Sodium 139 Potassium 3.5 Chloride 107 Carbon Dioxide 22 Anion Gap 10 BUN 9 Creatinine 0.58 L Est GFR ( Amer) 189.2 Est GFR (Non-Af Amer) 147.1 BUN/Creatinine Ratio 15.5 Glucose 110 H POC Glucose (mg/dL) Hemoglobin A1c Lactic Acid 0.8 Calcium 8.4 L Magnesium Total Bilirubin AST ALT Alkaline Phosphatase Total Creatine Kinase CK-MB (CK-2) 32.0 H Troponin I 0.79 H* B-Natriuretic Peptide Total Protein Albumin Globulin Albumin/Globulin Ratio Triglycerides Cholesterol LDL Cholesterol LDL Cholesterol Direct HDL Cholesterol TSH Free T4 Total T3 05/08/17 05/08/17 05/08/17 02:58 02:58 05:55 WBC RBC Hgb Hct MCV MCH MCHC RDW Plt Count MPV Neut % (Auto) Lymph % (Auto) Colbert % (Auto) Eos % (Auto) Baso % (Auto) Absolute Neuts (auto) Absolute Lymphs (auto) Absolute Monos (auto) Absolute Eos (auto) Absolute Basos (auto) Absolute Nucleated RBC Nucleated RBC % INR (Anticoag Therapy) APTT Patient Temperature ABG pH ABG pH (Temp Correct) ABG pCO2 ABG pCO2 (Temp Corrct ABG pO2 ABG pO2 (Temp Correct ABG HCO3 ABG O2 Saturation ABG Base Excess Respiration Rate O2 Delivery Device Ventilator Type Vent Mode FiO2 Inspiratory Time PEEP Pressure Support Pressure Control EPAP IPAP BiPAP Sodium 138 140 Potassium 3.4 L 3.6 Chloride 109 110 Carbon Dioxide 22 19 L Anion Gap 7 11 BUN 9 9 Creatinine 0.59 L 0.58 L Est GFR ( Amer) 185.5 189.2 Est GFR (Non-Af Amer) 144.3 147.1 BUN/Creatinine Ratio 15.3 15.5 Glucose 111 H 118 H POC Glucose (mg/dL) Hemoglobin A1c Lactic Acid 0.9 Calcium 8.1 L 8.1 L Magnesium 2.0 Total Bilirubin 0.50 AST 51 H ALT 37 Alkaline Phosphatase 97 Total Creatine Kinase CK-MB (CK-2) Troponin I 0.90 H* B-Natriuretic Peptide Total Protein 6.4 Albumin 3.0 L Globulin 3.4 Albumin/Globulin Ratio 0.9 L Triglycerides Cholesterol LDL Cholesterol LDL Cholesterol Direct HDL Cholesterol TSH Free T4 Total T3 05/08/17 05/08/17 05:55 05:55 WBC 6.0 RBC 3.82 L Hgb 11.5 L Hct 35 L MCV 91 MCH 30 MCHC 33 RDW 14 Plt Count 281 MPV 8 Neut % (Auto) 85.8 H Lymph % (Auto) 8.4 L Colbert % (Auto) 5.6 Eos % (Auto) 0 Baso % (Auto) 0.2 Absolute Neuts (auto) 5.2 Absolute Lymphs (auto) 0.5 L Absolute Monos (auto) 0.3 Absolute Eos (auto) 0 Absolute Basos (auto) 0 Absolute Nucleated RBC 0 Nucleated RBC % 0 INR (Anticoag Therapy) APTT Patient Temperature 33.0 ABG pH 7.48 H ABG pH (Temp Correct) Not Reportable ABG pCO2 28 L ABG pCO2 (Temp Corrct Not Reportable ABG pO2 169 H ABG pO2 (Temp Correct Not Reportable ABG HCO3 23.7 ABG O2 Saturation 99.7 H ABG Base Excess -1.6 Respiration Rate 16 O2 Delivery Device vent Ventilator Type 500 Vent Mode apvcmv FiO2 30 Inspiratory Time Not Reportable PEEP 6 Pressure Support Not Reportable Pressure Control Not Reportable EPAP Not Reportable IPAP Not Reportable BiPAP Not Reportable Sodium Potassium Chloride Carbon Dioxide Anion Gap BUN Creatinine Est GFR ( Amer) Est GFR (Non-Af Amer) BUN/Creatinine Ratio Glucose POC Glucose (mg/dL) Hemoglobin A1c Lactic Acid Calcium Magnesium Total Bilirubin AST ALT Alkaline Phosphatase Total Creatine Kinase CK-MB (CK-2) Troponin I B-Natriuretic Peptide Total Protein Albumin Globulin Albumin/Globulin Ratio Triglycerides Cholesterol LDL Cholesterol LDL Cholesterol Direct HDL Cholesterol TSH Free T4 Total T3 Imaging: cxr 05/07 ett above serjio, no infiltrate/effusion Assessment: 51y M with unknown past medical history. Patient was found down at his work, no trauma but suddenly collapsed. Bystander CPR started, EMS called. On Arrival given 2 defibrillations, ROSC was achieved and no further CPR as I was told. They noted ST elevations on EMS EKG but unable to transmit. On arrival to ER, EKG with anterior ST elevations noted. Code called (ABC and STEMI ). Patient was not responsive, poor resp effort, intubated by ER physician. BP stable 90-100s, in NSR. 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 Started on hypothermia protocol -VT/VF Cardiac arrest -Acute hypoxic respiratory failure -Severe CAD of LAD, occluded with collaterals -Hypothermia protocol -Metabolic acidosis -Hypertensive Emergency, resolved -Anemia history of alcohol abuse Plan: Neuro- post arrest, unresponsive. On hypothermia protocol, target temp 33C. plan for rewarming later today. on propofol, versed, nimbex. decreased nimbex further, discussed with nursing. follow train of 4. obtain xray head to see if large plate which may hinder CT brain evaluation. Folic acid/thiamine/mvi due to alcohol abuse history. shivering improved now. CVS- s/p VT/VF arrest. Cont amio infusion. s/p cath with chronic occlusion. Suspect chronic ischemia as etiology of arrest. ECHO today. Cont asa/brillinta/ statin. Medical management. BP improved, now vaishali likely from hypothermia. d/ c cardene. Cont BMP checks a4h, replete IV potassium. Urine output lower, bolus 500cc NS and increased NS to 100cc/hour. Resp- intubated. on fio2 30%. cxr tomorrow. abg with some alkalosis today, decrease RR to 14. ID- hypothermic. wbc normal. no acute infectious process noted. cxr yesterday clear. No abx indicated. GI- npo. Ngt to be placed. PPI daily IV. Renal- Cr okay. Metabolic acidosis+. hypokalemia. Replete IV K. Check BMP q4h while hypothermic. Cont NS infusion, monitor urine output, maintain 1ml/kg. deutsch+ Heme- anemia, no bleeding. Plt okay. Cont DAPT for CAD. Endo- fingersticks as needed, maintain BS <200 Musculsk- bedrest, pressure ulcer proph. Wounds- none Nutrition- npo DVT prophylaxis: scd and heparin sq GI prophylaxis: ppi Central Line: right fem 05/07 Arterial Line: right radial 05/07 Deutsch Cathetor: yes Disposition: ICU Code Status: full code Total Critical Care time is 45 minutes, excluding procedures/teaching Vito Martínez MD Ceramics Technician (Electronically Signed)
[2017-05-08] MEDS ORDERED: Thiamine IV* 100 MG/ML 2 ML VIAL IV SCH (09:00)
[2017-05-08] MEDS ORDERED: Folic Acid IV* 1 MG/0.2 ML SYRINGE IV SCH (09:00)
[2017-05-08] MEDS ORDERED: Ticagrelor* 90 MG TAB PO SCH (09:00)
[2017-05-08] MEDS ORDERED: Potassium Chloride IV* 30 MEQ in NS 0.9% 250 ML* 250 ML IVPB ONE (09:00)
[2017-05-08] MEDS ORDERED: KCL 10 MEQ/50 ML IVPREMIX* 10 MEQ/50 ML BAG IV SCH (09:00)
[2017-05-08] MEDS ORDERED: Multiple Vitamin IV ADULT* 10 ML VIAL IVPB SCH (09:00)
[2017-05-08] MEDS ORDERED: Multiple Vitamin IV ADULT* 10 ML, Thiamine IV* 100 MG, Folic Acid IV* 1 MG in NS 0.9% 1... IVPB SCH ×2 (09:30→10:34)
--- NOTE | 2017-05-08 10:17 | ECHO ---
Patient: KYLIE COLE V [facility] Rec#: [id number] : 1965 Date: 05/08/2017 Age: 51y Height: 170.18 cm / 67.0 in Weight: 63.5 kg / 140.0 lbs Sex: M BSA: 1.74 Room#: [facility] Admit Date#: 05/07/2017 Type: Inpatient Referring: Francisco Haskins MD Reading: Ping Everett MD Vegetable Inspector: [facility] Transthoracic Echocardiogram Indication: S/P VT arrest, severe CAD, hypothermia. 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 Technical Comments: The study quality is good. The study is technically limited due to patient being intubated and on a ventilator. Completed at 0815. Left Ventricle: The left ventricular chamber size is normal. Moderate concentric left ventricular hypertrophy is observed. Basal interventricular septum shows moderate thickening. There are multiple regional wall motion abnormalities. The apex is akinetic to dyskinetic, the base moves best but still shows severe hypokinesis. There is severely decreased left ventricular systolic function. The estimated ejection fraction is 20-25%. Abnormal left ventricular diastolic filling is observed, consistent with impaired relaxation. A thrombus is visualized in the left ventricular apex. Rouleax formation seen throughout the left ventricle and apex is filled with organized clot. Left Atrium: The left atrium is mildly dilated. Right Ventricle: Moderator Band present. The right ventricle is mild to moderately dilated. The right ventricular global systolic function is low normal. Right Atrium: The right atrium is mildly dilated. Aortic Valve: The aortic valve is trileaflet. The aortic valve leaflets are mildly thickened. There is a trace of aortic regurgitation. There is no evidence of aortic stenosis. Mitral Valve: The mitral valve leaflets are mildly thickened. There is mild mitral regurgitation. There is no evidence of mitral stenosis. Tricuspid Valve: The tricuspid valve leaflets are normal. There is trace tricuspid regurgitation. Unable to estimate the right ventricular systolic pressure. There is no tricuspid stenosis. Pulmonic Valve: The pulmonic valve appears normal. There is mild pulmonic regurgitation. There is no pulmonic stenosis. Pericardium: There is no significant pericardial effusion. Aorta: There is mild dilatation of the ascending aorta. There is no dilatation of the aortic arch. The aortic root is normal in size. Pulmonary Artery: The main pulmonary artery appears normal. Venous: Unable to accurately comment on the size collapsibility of the IVC as the patient in known to be on mechanical ventilation. Conclusions Moderate concentric left ventricular hypertrophy is observed. There is severely decreased left ventricular systolic function, apex akinetic/dyskinetic and severe global hypokinesis. A thrombus is visualized in the left ventricular apex, see text. Abnormal left ventricular diastolic filling is observed, consistent with impaired relaxation. The right ventricular global systolic function is low normal. There is a trace of aortic regurgitation. There is mild mitral regurgitation. There is trace tricuspid regurgitation. Unable to estimate the right ventricular systolic pressure. There is mild dilatation of the ascending aorta. No prior echo to compare. Measurements Name Value Normal Range RVIDd (AP) 2D 3 cm (0.9 - 2.6) RVDdMajor (2D) 4.9 cm (2.2 - 4.4) RAd ISD 4CH 4.6 cm (3.4 - 4.9) RA (A4C)W 5.2 cm (2.9 - 4.6) IVSd (2D) 1.7 cm (0.6 - 1) LVPWd (2D) 1.3 cm (0.6 - 1) LVIDd (2D) 4.9 cm (3.6 - 5.4) LVIDs (2D) 3.7 cm - LV FS (2D) 23 % (25 - 45) EF Teichholz (2D) 46 % - Aortic Annulus 2 cm (1.4 - 2.6) Ao root diameter (2D) 3.4 cm (2.1 - 3.5) Ascending Ao 3.6 cm (2.1 - 3.4) Aortic arch 2.4 cm (1.8 - 3.4) LA dimension (AP) 2D 3.5 cm (2.3 - 3.8) LAd ISD 4CH 4.4 cm (2.9 - 5.3) LA ISD 4CH W 3.9 cm (2.5 - 4.5) Name Value Normal Range LA ESV SP 4CH (A/L) 70 ml - LA ESV SP 2CH (A/L) 54 ml - LA ESV BP (A/L) 65 ml - LA ESV BP (A/L) index 38 ml/m2 - LA ESV SP 4CH (MOD) 61 ml - LA ESV SP 2CH (MOD) 54 ml - Name Value Normal Range MV E-wave Vmax 0.24 m/sec - MV deceleration time 308.2 msec - MV A-wave Vmax 0.42 m/sec - MV E:A ratio 0.5 ratio - LV septal e' Vmax 0.03 m/sec - LV lateral e' Vmax 0.04 m/sec - LV E:e' septal ratio 8 ratio - LV E:e' lateral ratio 6 ratio - Name Value Normal Range AV Vmax 0.65 m/sec - AV VTI 16.36 cm - AV peak gradient 1.71 mmHg - AV mean gradient 1.01 mmHg - LVOT Vmax 0.46 m/sec - LVOT VTI 10.12 cm - LVOT peak gradient 0.88 mmHg - LVOT mean gradient 0.46 mmHg - Name Value Normal Range TR Vmax 1.9 m/sec - TR peak gradient 14 mmHg - Name Value Normal Range PV Vmax 0.61 m/sec - PV peak gradient 1.52 mmHg - MA end-diastolic Vmax 0.86 m/sec -
[2017-05-08] MEDS ORDERED: NS 0.9% 250 ML* 250 ML with Norepinephrine VIAL* 4 MG IV SCH ×2 (11:00)
[2017-05-08] MEDS ORDERED: NS 0.9% 250 ML* 246 ML with Norepinephrine VIAL* 4 MG IV SCH ×2 (11:00)
[2017-05-08] MEDS ORDERED: DOBUTamine 2000 MCG/ML IVPREMX 500 MG/250 ML BAG IV SCH (11:00)
--- NOTE | 2017-05-08 11:45 | RAD ---
Indication: Head injury. 2 views of the chest skull demonstrates patient is status post craniotomy with metallic plate. No fracture is noted. No foreign body is noted. IMPRESSION: Metallic plate fixated craniotomy site. No fracture is noted.
[2017-05-08] MEDS: Pantoprazole IV* 40 MG IV SCH (12:12)
[2017-05-08] MEDS: Aspirin Low Dose CHEW TAB* 81 MG NG TUBE SCH (12:12)
[2017-05-08 13:03] LABS: EGFR Non-African American 147.1 (>60)
--- NOTE | 2017-05-08 13:56 | CATH ---
CC: Francisco Haskins MD STENT REPORT: DATE OF PROCEDURE: 05/07/17 PRIMARY CARE PHYSICIAN: None. PROCEDURES: Right common femoral artery access; bilateral selective coronary cineangiography, attempted angioplasty, LAD unsuccessful due to inability to cross with the wire. HISTORY: A 51-year-old male with VF arrest in the field, resuscitated by EMS, subsequently brought to the ER where he was intubated. EKG in the ER showed very poor R-wave progression V1 through V3 with precordial ST elevation consistent with an acute anterior wall ST elevation infarct. The patient was unable to provide any history, there was no family available. He underwent emergent catheterization. He received IV amiodarone, pre-label stamper as well as rectal aspirin. ACCESS: Right femoral artery sheath 6F. DIAGNOSTIC CATHETERS: 6FL4, 6FR4. HEMODYNAMICS: Initial BP 190/99. MEDICATIONS: 1. IV propofol. 2. Heparin 7000 units, 5000 units IV. 3. IV nitroglycerin infusion for hypertension. 4. Brilinta 180 mg p.o. crushed NG. After diagnostic coronary angiography, the LAD was approached using a 6 Voda left 4 guide with a 14 BMW wire. Even with a support balloon, the wire would not cross the LAD occlusion. A Whisper 14-wire was then used again with a 45- degree angled microcatheter for support, and would not cross the mid LAD occlusion. Finally a 14 PT Graphix wire was used with the same microcatheter, was able to engage a more distal small septal health insurance adjuster but the LAD lumen was not identified. Given right to left and left to left collaterals, the inability to re-cannulize the mid LAD, and the possibility that this was chronic total occlusion with in the field of primary VF arrest, attempt at revascularization was stopped. A cooling catheter was placed in the right femoral vein to permit cooling in the ICU. ANGIOGRAPHY: RFA: Sheath entry is in segment 2, there is no stenosis. Left main: The left main is short, normal. LAD: The LAD has ectasia, is occluded after a large first septal health insurance adjuster. There was no clear entry point. The distal LAD is collateralized by right to left as well as left to left collaterals. Circumflex: The circumflex is not dominant, is moderate with a large first marginal, smaller second marginal, ends with a very small posterolateral, the circumflex had luminal irregularity but no significant stenosis. RCA: The RCA is dominant, large, ectatic and calcified. The acute marginal branch supplies the portions of the distal inferior septum. The PDA is moderate is followed by a smaller posterolateral. The RCA has no significant stenosis. Use of the end-hole microcatheter for distal injection demonstrated recannulization of the mid LAD occlusion segment to the second septal health insurance adjuster but no further. CONCLUSION: 1. Single vessel disease, LAD with possible RECORDER HELPER GRAVITY PROSPECTING. The differential is between plaque rupture with acute anterior infarct versus primary VF arrest in the field with a LAD RECORDER HELPER GRAVITY PROSPECTING. The inability to cross the LAD favors a RECORDER HELPER GRAVITY PROSPECTING. Enzymes are pending. Echo evaluation of anterior wall motion and thickness is pending. 2. Successful Angio-Seal closure of the right common femoral artery. 3. Successful placement of cooling catheter right femoral vein. [id number] #: [id number] MTDD
[2017-05-08 15:32] LABS: EGFR Non-African American 118.4 (>60)
--- NOTE | 2017-05-08 17:31 | PN ---
Progress Note - Progress Note Date of Service: 05/08/17 Note: Reassessment Critical Care Patient starting rewarming Was hypotensive earlier, BP more in 80s, started levophed with some improvement. on NS/banana bag infusion 100cc/hour checked IVC with ultrasound, >2cm, noncollapsable given low ef, ischemic CMP, decision to start dobutamine for suspected poor CO as cause of hypotension, probably post arrest stunning also a factor. BP has improved more with dobutamine 2.5, HR to 60s, upt from upper 40s ( expected sinus vaishali from hypothermia) will wean down levophed infusion, maintain SBP >100 for now Urine output has also decreased over the past many hours. Given IVC dilatation and hypotension prob from poor CO, suspect from pre-renal azotemia/WES Will dec NS to 50cc/hour, monitor for response with increase urine output Amio infusion ongoing at 0.5mg/min, to be completed this evening for 24 hour infusion, then will d/c. Cardiology to d/c brillinta, likely not a true nstemi episode. Plan for lovenox AC for LV thrombus once warmed and neurostatus evaluated tomorrow. CT brain today, delayed for hypotension. CC time 45 min (total of 90 min for today), independant of procedures Vito Martínez MD Normalizer
[2017-05-08] MEDS: Atorvastatin* 80 MG TAB NG TUBE SCH (18:12)
[2017-05-08 20:37] LABS: EGFR Non-African American 111.1 (>60)
[2017-05-08] MEDS ORDERED: Furosemide IV* 10 MG/ML VIAL (40 MG) IV ONE (22:00)
[2017-05-09] MEDS: Chlorhexidine MOUTHWASH 0.12%* 15 ML UDC TOPICAL SCH ×6 (00:35→20:02)
[2017-05-09] MEDS: Metoprolol Tartrate TAB* 25 MG PO SCH ×4 (00:35→18:50)
[2017-05-09 00:59] LABS: EGFR Non-African American 100.1 (>60)
[2017-05-09] MEDS: Propofol* 1000 MG (10 MG/ML 100 ml) @ Per Protocol (in ICU Pyxis) IV SCH ×4 (01:53→16:47)
[2017-05-09] MEDS: Midazolam IV for DRIP* 100 MG in NS 0.9% 100 ML* 80 ML IV SCH ×2 (04:15→23:38)
[2017-05-09 04:40] LABS: EGFR Non-African American 94.7 (>60)
[2017-05-09] MEDS ORDERED: Furosemide IV* 10 MG/ML 10 ML VIAL (100 MG) IV ONE (05:00)
[2017-05-09] MEDS: Cisatracurium* 100 MG in NS 0.9% 250 ML* 200 ML IVPB SCH (05:36)
[2017-05-09 05:57] LABS: Hematocrit 37 % (42-52); Hemoglobin 11.9 g/dl (14.0-18.0); Mean Corpuscular HGB Conc 33 g/dl (31-36); Mean Corpuscular Hemoglobin 30 pg (27-31); Mean Corpuscular Volume 92 fL (80-94); Mean Platelet Volume 8 um3 (7.4-10.4); Platelet Count 283 10^3/ul (150-450); Red Blood Count 3.96 10^6/ul (4.0-5.4); Red Cell Distribution Width 14 % (10.5-15); White Blood Count 15.1 10^3/ul (3.5-10.8)
[2017-05-09 06:14] LABS: EGFR Non-African American 92.1 (>60)
[2017-05-09] MEDS ORDERED: Vancomycin(*) 1,000 MG in NS 0.9% 250 ML* 250 ML IVPB ONE (06:47)
[2017-05-09] MEDS ORDERED: Piperacillin/Tazobac ADVAN(*) 3.375 GM in NS 0.9% 100 ML* 100 ML IVPB ONE (06:47)
[2017-05-09] MEDS ORDERED: Zosyn per Pharmacy* NOTE FOLLOW UP SCH ×2 (07:00)
[2017-05-09] MEDS ORDERED: Vancomycin per Pharmacy* NOTE FOLLOW UP SCH (07:00)
[2017-05-09] MEDS: Heparin VIAL(*) 5000 UNITS/ML VIAL (FIVE THOUSAND) SUBCUT SCH ×2 (07:05→13:58)
--- NOTE | 2017-05-09 08:40 | RAD ---
INDICATION: Concern for intracranial hemorrhage following cardiac arrest of the patient with a history of brain surgery. COMPARISON: None. TECHNIQUE: Contiguous axial sections of the brain were obtained from the skull base to the vertex without contrast. FINDINGS: The ventricles, cisterns and sulci are within normal limits. The niño-white matter differentiation is adequately maintained and there is no sulcal effacement. No significant focal abnormality or mass effect is present. There is no evidence for intracranial hemorrhage. There is a surgical plate overlying the left parietal bone. Otherwise there is no significant focal osseous abnormality is present. The relatively diminutive left maxillary sinus is completely opacified. The left ethmoid air cells are also absent. There is moderate mucosal thickening of the hypoplastic left sphenoid sinus. Extending into the nasopharynx from what would otherwise be the maxillary sinus are 2 soft tissue nodules measuring 1 cm and 8 mm in greatest axial dimension (axial image 5 of 36). The mastoid air cells are well aerated bilaterally. IMPRESSION: 1. No acute intracranial hemorrhage. 2. Hypoplastic left paranasal sinuses with soft tissue nodules extending into the left nasopharynx. Please correlate to possible prior surgical interventions of the sinuses and/or chronic paranasal sinus disease. On a nonemergent basis direct visualization of the nasopharynx may be appropriate.
--- NOTE | 2017-05-09 08:46 | RAD ---
Indication: Evaluate for CHF. Single frontal view of the chest performed at 0622 hours was reviewed. Comparison is made with previous exam dated May 07, 2017. No mediastinal shift is noted. Heart is of normal size and configuration. ET tube is in appropriate location. IMPRESSION: TUBES AND LINES APPEAR IN APPROPRIATE POSITION. HYPERINFLATED LUNG VELIZ ARE NOTED.
--- NOTE | 2017-05-09 08:57 | RAD ---
INDICATION: Further characterization of pneumonia status post cardiac arrest COMPARISON: Same day chest x-ray TECHNIQUE: Axial source images of the chest were acquired without intravenous contrast from just above the lung apices to the base of the diaphragm. Coronal and sagittal reconstructed images were acquired. FINDINGS: The patient's endotracheal tube and gastric tube are appropriately positioned. The tip of a central line is partially visualized in the IVC. There are small bibasilar pleural effusions with compressive atelectasis of the bilateral lower lobes. There are air bronchograms in the left. The heart is normal in size. There is no evidence of pericardial effusion. There is no evidence of aortic aneurysm or dissection. There is no readily apparent mediastinal, hilar, or axillary lymphadenopathy. The osseous structures appear normal. Limited views of the upper abdomen show no acute abnormalities. IMPRESSION: 1. Small bibasilar pleural effusions with adjacent compressive atelectasis. 2. Visualized lines and tubes appear to be appropriately position.
--- NOTE | 2017-05-09 09:55 | PN ---
Progress Note - Progress Note Date of Service: 05/09/17 Note: Progress Note - Critical Care 24 hour events: -remains intubated -yesterday BP lower, started on levo and added dobutamine 2.5 for inotropic support -poor urine output all day, down to 10cc/hr -givne lasix 40mg x1 in evening, no response; repeated this mornign 60mg iv push ; since mornign urine output has iimproved; question of possible deutsch obstruction? -making good urine now -did wake overnight slowly, sedation increased; nimbex held now -hold levophed, goal sbp>100 for now -tachypnea, WBC 15, started on iv abx -in warming phase still Tele: sinus rhythm Vitals: Vital Signs Temp 98.2 F 05/09/17 09:45 Pulse 77 05/09/17 09:45 Resp 27 05/09/17 06:00 BP 168/101 05/09/17 09:45 Pulse Ox 98 05/09/17 09:45 Intake & Output 05/08/17 05/09/17 05/09/17 18:59 06:59 18:59 Intake Total 3954 1215.1 Output Total 550 1175 Balance 3404 40.1 Weight 163 lb 2.273 oz Intake: IV Fluids 3003 709 NS (0.9%) 2593 62 NS with vitamins 410 647 IVPB 477 NS (0.9%) 98 NS with vitamins 379 Medicated IV 474 506.1 CC - Amiodarone 197 CC - Cisatracurium 107 169 CC - Dobutamine 67.4 CC - Norepinephrine/ 49 72.8 Levophed CC - Propofol/Diprivan 121 176.5 midazolam 20.4 Output: NG Tube Drainage Amount 550 Deutsch 1175 O2/Vent: 16/500/+5/30%, breathing at 22 Infusions: propofol 60, versed 5, NS 50 Current Medications: Acetaminophen (Tylenol Adult Liq*) 650 mg NG TUBE Q4H PRN PRN Reason: TEMP > TARGET 33 DEG. CELCIUS Aspirin (Aspirin Low Dose Tab*) 81 mg NG TUBE DAILY GERARD Last Admin: 05/08/17 12:12 Dose: 81 mg Atorvastatin Calcium (Lipitor*) 80 mg NG TUBE 1700 GERARD Last Admin: 05/08/17 18:12 Dose: 80 mg Buspirone HCl (Buspar Tab*) 30 mg PO Q8H PRN PRN Reason: shivering Chlorhexidine Gluconate (Peridex Mouth Wash 0.12%*) 15 ml TOPICAL Q4H GERARD Last Admin: 05/09/17 09:58 Dose: 15 ml Heparin Sodium (Porcine) (Heparin Vial(*)) 5,000 units SUBCUT Q8HR GERARD Last Admin: 05/09/17 07:05 Dose: 5,000 units Midazolam HCl 100 mg/ Sodium (Chloride) 100 mls @ 3 mls/hr IV Q24H GERARD; 3 MG/HR PRN Reason: Protocol Last Admin: 05/09/17 04:15 Dose: 5 mls/hr Propofol (Diprivan*) 100 mls @ 19.051 mls/hr IV .(Initial Rate) GERARD; 50 MCG/KG/ MIN PRN Reason: Protocol Last Admin: 05/09/17 07:32 Dose: 24.5 mls/hr Norepinephrine Bitartrate 4 mg (/ Sodium Chloride) 250 mls @ 18.75 mls/hr IV .INITIAL RATE GERARD; 5 MCG/MIN PRN Reason: Protocol Last Admin: 05/08/17 11:10 Dose: 18.75 mls/hr Dobutamine HCl/Dextrose (Dobutamine 2000 Mcg/Ml Ivpremx*) 500 mg in 250 mls @ 4.793 mls/hr IV .Initial Rate GERARD; 2.5 MCG/KG/MIN PRN Reason: Protocol Last Admin: 05/08/17 15:38 Dose: 4.793 mls/hr Multivitamins 10 ml/ Thiamine HCl 100 mg/ Folic Acid 1 mg/Sodium Chloride 1, 011.2 mls @ 50 mls/hr IVPB Q24HR GERARD Sodium Chloride (Ns 0.9% 1000 Ml*) 1,000 mls @ 50 mls/hr IV .per rate GERARD Last Admin: 05/09/17 04:31 Dose: 50 mls/hr Vancomycin HCl 1,000 mg/ (Sodium Chloride) 250 mls @ 166.667 mls/hr IVPB Q8H GERARD Potassium Chloride 40 meq/ (Sodium Chloride) 270 mls @ 67.5 mls/hr IVPB ONCE ONE Stop: 05/09/17 13:59 Piperacillin Sod/Tazobactam (Sod 3.375 gm/ Sodium Chloride) 100 mls @ 25 mls/ hr IVPB Q8HR [facility] Metoprolol Tartrate (Lopressor Tab*) 25 mg PO Q6H [facility] Last Admin: 05/09/17 07:05 Dose: 25 mg Pantoprazole Sodium (Protonix Iv*) 40 mg IV DAILY [facility] Last Admin: 05/09/17 09:57 Dose: 40 mg Pharmacy Consult (Vancomycin Per Pharmacy*) 1 note FOLLOW UP .VANC PER PHARMACY [facility] Pharmacy Consult (Zosyn Per Pharmacy*) 1 note FOLLOW UP .ZOSYN PER PHARMACY [facility] Pharmacy Profile Note (Vancomycin Trough Check) 1 note FOLLOW UP 729 ONE Stop: 05/10/17 07:31 Physical Exam: General: intubated, sedated Head: normocephalic, atraumatic HEENT: no pallor, no icterus, moist mucous membranes Neck: soft, supple, no jvd, CVS: normal rate, regular, no murmur Resp: bilateral air entry, no rhales, no wheeze, no rhonchi, no acc muscle use Abdomen: soft, nondistended, bowel sounds present Ext: pulses+, cool, no edema Skin: intact, no breakdown, no dryness Neuro: intubated, sedated; pupils bilaterall reactive Labs: Laboratory Results - last 24 hr 05/08/17 05/08/17 05/08/17 11:20 14:45 20:10 WBC RBC Hgb Hct MCV MCH MCHC RDW Plt Count MPV ABG pH 7.37 ABG pCO2 28 L ABG pO2 168 H ABG HCO3 18.9 L ABG O2 Saturation 100.0 H ABG Base Excess -7.8 L Sodium 140 138 Potassium 4.6 4.8 Chloride 114 H 115 H Carbon Dioxide 17 L 15 L Anion Gap 9 8 BUN 9 10 Creatinine 0.58 L 0.70 Est GFR ( Amer) 189.2 152.3 Est GFR (Non-Af Amer) 147.1 118.4 BUN/Creatinine Ratio 15.5 14.3 Glucose 115 H 119 H Lactic Acid Calcium 7.3 L 7.2 L Magnesium 1.7 L Total Bilirubin AST ALT Alkaline Phosphatase Troponin I 0.81 H* Total Protein Albumin Globulin Albumin/Globulin Ratio 05/08/17 05/08/17 05/09/17 20:10 20:10 00:15 WBC RBC Hgb Hct MCV MCH MCHC RDW Plt Count MPV ABG pH ABG pCO2 ABG pO2 ABG HCO3 ABG O2 Saturation ABG Base Excess Sodium 139 140 Potassium 4.1 3.8 Chloride 114 H 114 H Carbon Dioxide 17 L 18 L Anion Gap 8 8 BUN 10 10 Creatinine 0.74 0.81 Est GFR ( Amer) 142.8 128.7 Est GFR (Non-Af Amer) 111.1 100.1 BUN/Creatinine Ratio 13.5 12.3 Glucose 109 H 95 Lactic Acid 0.7 Calcium 7.4 L 7.5 L Magnesium Total Bilirubin AST ALT Alkaline Phosphatase Troponin I Total Protein Albumin Globulin Albumin/Globulin Ratio 05/09/17 05/09/17 05/09/17 04:15 05:45 05:45 WBC 15.1 H RBC 3.96 L Hgb 11.9 L Hct 37 L MCV 92 MCH 30 MCHC 33 RDW 14 Plt Count 283 MPV 8 ABG pH 7.44 ABG pCO2 26 L ABG pO2 71 L ABG HCO3 20.9 ABG O2 Saturation 97.2 ABG Base Excess -5.1 L Sodium 140 Potassium 3.7 Chloride 114 H Carbon Dioxide 18 L Anion Gap 8 BUN 10 Creatinine 0.85 Est GFR ( Amer) 121.7 Est GFR (Non-Af Amer) 94.7 BUN/Creatinine Ratio 11.8 Glucose 90 Lactic Acid Calcium 7.5 L Magnesium Total Bilirubin AST ALT Alkaline Phosphatase Troponin I Total Protein Albumin Globulin Albumin/Globulin Ratio 05/09/17 05/09/17 05:45 05:45 WBC RBC Hgb Hct MCV MCH MCHC RDW Plt Count MPV ABG pH ABG pCO2 ABG pO2 ABG HCO3 ABG O2 Saturation ABG Base Excess Sodium 139 Potassium 3.5 Chloride 113 H Carbon Dioxide 18 L Anion Gap 8 BUN 10 Creatinine 0.87 Est GFR ( Amer) 118.5 Est GFR (Non-Af Amer) 92.1 BUN/Creatinine Ratio 11.5 Glucose 93 Lactic Acid 0.6 Calcium 7.7 L Magnesium Total Bilirubin 0.50 AST 34 ALT 31 Alkaline Phosphatase 83 Troponin I Total Protein 6.2 L Albumin 2.7 L Globulin 3.5 Albumin/Globulin Ratio 0.8 L Imaging: cxr 05/07 ett above serjio, no infiltrate/effusion CT brain 05/09 - no acute findings noted CT chest 05/09 - small bilateral pleural effusions, mild atelectasis noted CXR 05/09 - some right lower lobe infiltrate was noted, ett above serjio Assessment: 51y M with unknown past medical history. Patient was found down at his work, no trauma but suddenly collapsed. Bystander CPR started, EMS called. On Arrival given 2 defibrillations, ROSC was achieved and no further CPR as I was told. They noted ST elevations on EMS EKG but unable to transmit. On arrival to ER, EKG with anterior ST elevations noted. Code called (ABC and STEMI ). Patient was not responsive, poor resp effort, intubated by ER physician. BP stable 90-100s, in NSR. 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 Started on hypothermia protocol -VT/VF Cardiac arrest -Acute hypoxic respiratory failure -Severe CAD of LAD, occluded with collaterals -Hypothermia protocol -Metabolic acidosis -Hypertensive Emergency, resolved -Anemia -WES, improved now -SIRS+, r/o pneumonia/sepsis history of alcohol abuse Plan: Neuro- post arrest, currently on hypothermia. still on propofol/versed. no need for nimbex now, discontinued. Warming phase ongoing, plan for possible decreasing sedation in evening or tomorrow, would prefer to cont maintaining of euthermia for ~[address] brain without acute findings. Folic acid/thiamine/ mvi due to alcohol abuse history. no further shivering now that rewarming. CVS- s/p VT/VF arrest. Amio infusion complete. on dobutamine and levophed for BP support. holding levophed now. if stable, will decrease dobutamine in coming 24 hours and plan to start BB/ACEI at some point. no VT/VF noted, cont to monitor. s/p cath with chronic occlusion. Suspect chronic ischemia and ischemic VT as cause of arrest. ECHO with severe LV dysfunction and anterior LV thrombus , start lovenox 1 mg/kg bid once rewarmed today. Cont asa/statin only, no brillinta given not likely an acute SD as etiology. Medical management at this point. Urine output improved, started on sepsis protocol, LA negative still. IV abx, blood cultures. No further IVF bolus given positive balance and IVC dialted yesterday, clinically does not need volume at this time. Jose Miguel resolved with rewarming and dobutamine. Cont BMP checks a4h, replete IV potassium. NS 50cc/hour only. Resp- intubated. on fio2 30%. PO2 71, mild hypoxia. CXR/CT reviewed, atelectasis only. Empiric Abx for now. No secretions from ETT. ID- hypothermic. wbc 15. CXR with some infitlrate but CT chest negative. Does meet SIRS but unclear given hypothermia and post arrest status, could be reactive from stress response. Empiric Zosyn/vanco (day#1) for now. Blood cultures sent. No secretions from ett, urine clear. GI- npo. Ngt. Once rewarmed may consider some trophic feeds starting tonight. PPI daily IV. Renal- Cr okay. Metabolic acidosis+. hypokalemia, replete IV K. Check BMP q4h, change to q12h once rewarmed. Cont NS 50cc/hr. Urine output is better now, did have some WES yesterday, multifactorial from KADI (cath)/post arrest ischemic injury/hypotension. No further lasix, will monitor today and give volume/lasix as needed. deutsch+ Heme- anemia, no bleeding. Plt okay. Cont DAPT for CAD. Endo- fingersticks as needed, maintain BS <200 Musculsk- bedrest, pressure ulcer proph. Wounds- none Nutrition- npo DVT prophylaxis: scd and heparin sq GI prophylaxis: ppi Central Line: right fem 05/07 Arterial Line: right radial 05/07 Deutsch Cathetor: yes Disposition: ICU Code Status: full code Total Critical Care time is 60 minutes, excluding procedures/teaching Vito Martínez MD [employer] Supervisor (Electronically Signed)
[2017-05-09] MEDS: Pantoprazole IV* 40 MG IV SCH (09:57)
[2017-05-09] MEDS ORDERED: Potassium Chloride IV* 40 MEQ in NS 0.9% 250 ML* 250 ML IVPB ONE (10:00)
[2017-05-09] MEDS ORDERED: KCL 20 MEQ/100 ML IVPREMIX* 20 MEQ/100 ML BAG IV SCH (10:00)
[2017-05-09] MEDS: Aspirin Low Dose CHEW TAB* 81 MG NG TUBE SCH (10:46)
[2017-05-09] MEDS: Multiple Vitamin IV ADULT* 10 ML, Thiamine IV* 100 MG, Folic Acid IV* 1 MG in NS 0.9% 1... IVPB SCH (10:53)
[2017-05-09 11:52] LABS: EGFR Non-African American 80.3 (>60)
--- NOTE | 2017-05-09 12:15 | PN ---
Progress Note - Progress Note Date of Service: 05/09/17 Note: Central Line Procedure Note Indication: poor vascular access Diagnosis: cardiac arrest, respiratory failure, VF/VT, shock Consent was informed and obtained from signficant other , placed in bedside chart. Risks of procedure were explained if possible, all risks of pain/discomfort, bleeding, infection, PTX, Hemotx, need for chest tube, air/wire embolism, vessel injury, , and failed procedure disclosed and understanding verbalized - Prior labs/history was reviewed prior to procedure - Full sterile precautions with chlorhexidine/full drapes/gowns/gloves utilized - left IJ vein visualized with ultrasound - Vessel accessed under ultrasound guidance with return of nonpulsatile blood. A guidewire was passed into vessel and confirmed in vessel with ultrasound. 1 attempt was made to access vessel. Vessel was dilated and cathetor was passed over wire into vessel. All ports demonstrated good blood return and flushed. Catheter was sutured to site and dressing applied Adequate hemostasis was achieved, EBL <5 cc No immediate complications noted, patient tolerated procedure well. CXR 05/09 post procedure - no ptx, left IJ cathetor in place terminating in SVC Vito Martínez MD [employer] Sprayer (electronically signed)
--- NOTE | 2017-05-09 12:31 | RAD ---
INDICATION: Central line placement COMPARISON: Chest x-ray May 09, 2017 TECHNIQUE: An AP portable view obtained at 1212 hours is submitted. FINDINGS: Bones/Soft Tissues: There are no acute bony findings. There is an endotracheal tube 4 cm above the serjio. An orogastric tube passes normally seated the mediastinum. There is a left IJ catheter terminating in the superior vena cava. There is no pneumothorax Cardiomediastinal: The cardiomediastinal silhouette is normal. Lungs: There are no definitive infiltrates. Pleura: There are no significant effusions identified on and a semierect portable chest x-ray although CT imaging shows bilateral effusions. Other: None IMPRESSION: LEFT IJ CATHETER IN PROPER POSITION. NO PNEUMOTHORAX. ENDOTRACHEAL TUBE IN PROPER POSITION. LUNGS GROSSLY CLEAR.
[2017-05-09] MEDS ORDERED: ZOSYN 3.375 GM Q8H per EXTENDED INFUSION IVPB SCH ×2 (14:00)
[2017-05-09 14:59] LABS: EGFR Non-African American 81.3 (>60)
[2017-05-09] MEDS: Atorvastatin* 80 MG TAB NG TUBE SCH (16:47)
[2017-05-09] MEDS: Vancomycin(*) 1,000 MG in NS 0.9% 250 ML* 250 ML IVPB SCH (16:48)
[2017-05-09] MEDS: ZOSYN 3.375 GM Q6H per 30 MIN INFUSION IVPB SCH ×4 (16:48→23:38)
[2017-05-09 19:26] LABS: EGFR Non-African American 75.8 (>60)
[2017-05-09] MEDS: Enoxaparin(*) 80 MG/0.8 ML SYR SUBCUT SCH (20:02)
[2017-05-10] MEDS: Vancomycin(*) 1,000 MG in NS 0.9% 250 ML* 250 ML IVPB SCH ×3 (00:24→16:20)
[2017-05-10] MEDS: Chlorhexidine MOUTHWASH 0.12%* 15 ML UDC TOPICAL SCH ×6 (00:24→21:04)
[2017-05-10] MEDS: Metoprolol Tartrate TAB* 25 MG PO SCH ×4 (00:24→18:02)
[2017-05-10] MEDS: Propofol* 1000 MG (10 MG/ML 100 ml) @ Per Protocol (in ICU Pyxis) IV SCH ×3 (02:24→19:21)
--- NOTE | 2017-05-10 02:40 | EEG ---
ELECTROENCEPHALOGRAPHY: DATE OF STUDY: DATE OF DICTATION: 05/09/17 - ROOM #ICU-05 PATIENT OF: Dr. Martínez. CLINICAL PROBLEM: This is a 51-year-old man who had a cardiopulmonary arrest at 05/07/17 receiving CPR and then intubation. The patient had a cooling protocol and is now normothermic. He has been on propofol and Versed, and these medicines are being decreased. He has a history of alcoholism and he has a metal plate in the left side of his head. MEDICATIONS: Include: 1. Metoprolol. 2. Midazolam. 3. Heparin. 4. Vancomycin. 5. Atorvastatin. 6. Aspirin. 7. Pantoprazole. 8. Dobutamine. 9. Propofol. 10. Zofran. The propofol was decreased during this tracing to 20 mcg. REPORT: The background cerebral activity consists of diffuse delta and theta range frequencies reaching 6 to 7 Hz in frequency. No subclinical seizures are noted. There are bilateral posterior sharp waves noted on occasion sporadically throughout this tracing symptoms, better seen in the left than the right side. CLINICAL IMPRESSION: This intubated patient on sedating medicines shows diffuse slowing of background consistent with an encephalopathy, but may be in part secondary to medications the patient is on. The bilateral posterior sharp activity may be secondary to the hypoxic ischemic insult, but it does denote some risk for either focal or multifocal seizures. No subclinical seizures were noted on this tracing. [id number]/[facility] #: [id number] SANGEETHA
[2017-05-10] MEDS: ZOSYN 3.375 GM Q6H per 30 MIN INFUSION IVPB SCH ×8 (04:57→22:33)
[2017-05-10 06:28] LABS: Hematocrit 31 % (42-52); Hemoglobin 10.1 g/dl (14.0-18.0); Mean Corpuscular HGB Conc 33 g/dl (31-36); Mean Corpuscular Hemoglobin 30 pg (27-31); Mean Corpuscular Volume 92 fL (80-94); Mean Platelet Volume 9 um3 (7.4-10.4); Platelet Count 236 10^3/ul (150-450); Red Blood Count 3.37 10^6/ul (4.0-5.4); Red Cell Distribution Width 14 % (10.5-15); White Blood Count 21.5 10^3/ul (3.5-10.8)
[2017-05-10] MEDS ORDERED: Vancomycin Trough Check NOTE FOLLOW UP ONE (07:30)
[2017-05-10] MEDS: Multiple Vitamin IV ADULT* 10 ML, Thiamine IV* 100 MG, Folic Acid IV* 1 MG in NS 0.9% 1... IVPB SCH (08:38)
[2017-05-10] MEDS: Enoxaparin(*) 80 MG/0.8 ML SYR SUBCUT SCH ×2 (08:48→21:04)
[2017-05-10] MEDS: Pantoprazole IV* 40 MG IV SCH (08:48)
[2017-05-10] MEDS: Aspirin Low Dose CHEW TAB* 81 MG NG TUBE SCH (08:49)
[2017-05-10] MEDS ORDERED: Furosemide IV* 10 MG/ML 2 ML VIAL (20 MG) IV ONE (09:18)
--- NOTE | 2017-05-10 09:27 | PN ---
Progress Note - Progress Note Date of Service: 05/10/17 Note: Progress Note - Critical Care 24 hour events: -intubated -urine output picked up yesterday -some evidence of peripheral tremors, possible seizures; s/p EEG 05/09 -this morning off versed now, decreased propofol infusion -remains on dobutamine, off levophed infusion; BP 100-110s with good urine output -rewarmed yesterday to 37C and has maintained, no further temp spikes noted so far -GF at bedside still -currently opening eyes on less sedation, some upward gaze noted now but just coming off sedation. -no arrythmias overnight -left arm IV site and left arm thrombophlebitis noted yesterday; this morning resolved it seems Tele: sinus rhythm Vitals: Vital Signs Temp 98.8 F 05/10/17 09:15 Pulse 72 05/10/17 09:15 Resp 19 05/10/17 08:00 BP 141/71 05/10/17 09:15 Pulse Ox 100 05/10/17 09:15 Intake & Output 05/09/17 05/10/17 05/10/17 18:59 06:59 18:59 Intake Total 1128.5 3217.5 Output Total 1360 500 Balance -231.5 2717.5 Weight 166 lb 7.184 oz Intake: IV Fluids 283 2438 ABX - VANCOMYCIN 602 ABX - ZOSYN 333 NS (0.9%) 283 727 banana bag 776 IVPB 594 ABX - VANCOMYCIN 289 ABX - ZOSYN 100 NS (0.9%) 3 banana bag 99 potassium 103 Medicated IV 251.5 460.5 CC - Dobutamine 41.5 74.9 CC - Propofol/Diprivan 180 285 midazolam 30 100.6 IV Narcotic Infusion 83 Versed 83 Tube Feeding 236 Output: NG Tube Drainage Amount 60 Deutsch 1300 500 O2/Vent: 16/500/+5/30% Infusions: propofol, versed, NS 50, dobutamine 2.5, levo off Current Medications: Acetaminophen (Tylenol Adult Liq*) 650 mg NG TUBE Q4H PRN PRN Reason: TEMP > TARGET 33 DEG. CELCIUS Aspirin (Aspirin Low Dose Tab*) 81 mg NG TUBE DAILY [facility] Last Admin: 05/10/17 08:49 Dose: 81 mg Atorvastatin Calcium (Lipitor*) 80 mg NG TUBE 1700 [facility] Last Admin: 05/09/17 16:47 Dose: 80 mg Chlorhexidine Gluconate (Peridex Mouth Wash 0.12%*) 15 ml TOPICAL Q4H [facility] Last Admin: 05/10/17 08:38 Dose: 15 ml Enoxaparin Sodium (Lovenox(*)) 80 mg SUBCUT Q12H [facility] Last Admin: 05/10/17 08:48 Dose: 80 mg Midazolam HCl 100 mg/ Sodium (Chloride) 100 mls @ 3 mls/hr IV Q24H [facility]; 3 MG/HR PRN Reason: Protocol Last Admin: 05/09/17 23:38 Dose: 3 mls/hr Propofol (Diprivan*) 100 mls @ 19.051 mls/hr IV .(Initial Rate) GER[facility]; 50 MCG/KG/ MIN PRN Reason: Protocol Last Admin: 05/10/17 02:24 Dose: 20.4 mls/hr Norepinephrine Bitartrate 4 mg (/ Sodium Chloride) 250 mls @ 18.75 mls/hr IV .INITIAL RATE GER[facility]; 5 MCG/MIN PRN Reason: Protocol Last Admin: 05/08/17 11:10 Dose: 18.75 mls/hr Dobutamine HCl/Dextrose (Dobutamine 2000 Mcg/Ml Ivpremx*) 500 mg in 250 mls @ 4.793 mls/hr IV .Initial Rate [facility]; 2.5 MCG/KG/MIN PRN Reason: Protocol Last Admin: 05/08/17 15:38 Dose: 4.793 mls/hr Multivitamins 10 ml/ Thiamine HCl 100 mg/ Folic Acid 1 mg/Sodium Chloride 1, 011.2 mls @ 50 mls/hr IVPB Q24HR [facility] Last Admin: 05/10/17 08:38 Dose: 50 mls/hr Sodium Chloride (Ns 0.9% 1000 Ml*) 1,000 mls @ 50 mls/hr IV .per rate [facility] Last Admin: 05/09/17 04:31 Dose: 50 mls/hr Vancomycin HCl 1,000 mg/ (Sodium Chloride) 250 mls @ 166.667 mls/hr IVPB Q8H [facility] Last Admin: 05/10/17 08:41 Dose: 166.667 mls/hr Piperacillin Sod/Tazobactam (Sod 3.375 gm/ Sodium Chloride) 100 mls @ 200 mls/ hr IVPB Q6H [facility] Last Admin: 05/10/17 04:57 Dose: 200 mls/hr Potassium Chloride 30 meq/ (Sodium Chloride) 265 mls @ 88.333 mls/hr IVPB Q3H [facility] Stop: 05/10/17 15:59 Metoprolol Tartrate (Lopressor Tab*) 25 mg PO Q6H [facility] Last Admin: 05/10/17 06:17 Dose: 25 mg Pantoprazole Sodium (Protonix Iv*) 40 mg IV DAILY [facility] Last Admin: 05/10/17 08:48 Dose: 40 mg Pharmacy Consult (Vancomycin Per Pharmacy*) 1 note FOLLOW UP .VANC PER PHARMACY [facility] Pharmacy Consult (Zosyn Per Pharmacy*) 1 note FOLLOW UP .ZOSYN PER PHARMACY [facility] Physical Exam: General: intubated, sedated; slowly waking now Head: normocephalic, atraumatic HEENT: no pallor, no icterus, moist mucous membranes Neck: soft, supple, no jvd, CVS: normal rate, regular, no murmur Resp: bilateral air entry, no rhales, no wheeze, no rhonchi, no acc muscle use Abdomen: soft, nondistended, bowel sounds present Ext: pulses+, warm, no edema; left arm thrombophlebitis site resolved, no erythema/induration now Skin: intact, no breakdown, no dryness Neuro: intubated, sedated; pupils bilaterall reactive Labs: Laboratory Results - last 24 hr 05/09/17 05/09/17 05/09/17 09:35 13:47 19:02 WBC RBC Hgb Hct MCV MCH MCHC RDW Plt Count MPV ABG pH ABG pCO2 ABG pO2 ABG HCO3 ABG O2 Saturation ABG Base Excess Sodium 141 139 140 Potassium 3.6 4.1 3.7 Chloride 112 H 113 H 114 H Carbon Dioxide 19 L 18 L 18 L Anion Gap 10 8 8 BUN 10 10 9 Creatinine 0.98 0.97 1.03 Est GFR ( Amer) 103.3 104.5 97.5 Est GFR (Non-Af Amer) 80.3 81.3 75.8 BUN/Creatinine Ratio 10.2 10.3 8.7 Glucose 82 83 86 POC Glucose (mg/dL) Calcium 7.8 L 7.5 L 7.4 L Total Bilirubin AST ALT Alkaline Phosphatase Total Protein Albumin Globulin Albumin/Globulin Ratio Vancomycin Trough 05/10/17 05/10/17 05/10/17 00:23 03:29 06:00 WBC 21.5 H RBC 3.37 L Hgb 10.1 L Hct 31 L MCV 92 MCH 30 MCHC 33 RDW 14 Plt Count 236 MPV 9 ABG pH ABG pCO2 ABG pO2 ABG HCO3 ABG O2 Saturation ABG Base Excess Sodium Potassium Chloride Carbon Dioxide Anion Gap BUN Creatinine Est GFR ( Amer) Est GFR (Non-Af Amer) BUN/Creatinine Ratio Glucose POC Glucose (mg/dL) 101 H 105 H Calcium Total Bilirubin AST ALT Alkaline Phosphatase Total Protein Albumin Globulin Albumin/Globulin Ratio Vancomycin Trough 05/10/17 05/10/17 06:00 06:24 WBC RBC Hgb Hct MCV MCH MCHC RDW Plt Count MPV ABG pH 7.40 ABG pCO2 27 L ABG pO2 113 H ABG HCO3 19.5 ABG O2 Saturation 100.0 H ABG Base Excess -7.0 L Sodium 140 Potassium 3.3 L Chloride 115 H Carbon Dioxide 18 L Anion Gap 7 BUN 10 Creatinine 1.04 Est GFR ( Amer) 96.4 Est GFR (Non-Af Amer) 75.0 BUN/Creatinine Ratio 9.6 Glucose 104 H POC Glucose (mg/dL) Calcium 7.2 L Total Bilirubin 0.40 AST 18 ALT 22 Alkaline Phosphatase 75 Total Protein 5.6 L Albumin 2.4 L Globulin 3.2 Albumin/Globulin Ratio 0.8 L Vancomycin Trough 14.0 Imaging: cxr 05/07 ett above serjio, no infiltrate/effusion CT brain 05/09 - no acute findings noted CT chest 05/09 - small bilateral pleural effusions, mild atelectasis noted CXR 05/09 - some right lower lobe infiltrate was noted, ett above serjio Assessment: 51y M with unknown past medical history. Patient was found down at his work, no trauma but suddenly collapsed. Bystander CPR started, EMS called. On Arrival given 2 defibrillations, ROSC was achieved and no further CPR as I was told. They noted ST elevations on EMS EKG but unable to transmit. On arrival to ER, EKG with anterior ST elevations noted. Code called (ABC and STEMI ). Patient was not responsive, poor resp effort, intubated by ER physician. BP stable 90-100s, in NSR. 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 Started on hypothermia protocol -VT/VF Cardiac arrest -Acute hypoxic respiratory failure -Severe CAD of LAD, occluded with collaterals -Hypothermia protocol -Metabolic acidosis -Hypertensive Emergency, resolved -Anemia -WES -SIRS+, r/o pneumonia/sepsis -left arm thrombophlebitis, improved history of alcohol abuse Plan: Neuro- post arrest, rewarmed now. Decreasing sedation, neurochecks q1h. EEG reviewed yesterday, slowing but no focal seizures. Will monitor and assess for any hypoxic injury. CT brain 05/09 no acute findings. Folic acid/thiamine/mvi due to alcohol abuse history. CVS- -s/p VT/VF arrest. off levophed. on dobutamine 2.5. BP stable. no arrythmias noted. positive balance, give lasix 20mg iv x1. replete IV K 60K over the day. Cont asa/statin. Lovenox 80mg Sq Q12h for LV thrombus. Will wean dobutamine and start BB soon. Monitor urine output. On NS 50cc/hour. No bleeding noted. -s/p cath with chronic occlusion. Suspect chronic ischemia and ischemic VT as cause of arrest. ECHO with severe LV dysfunction and anterior LV thrombus. Medical management at this point. Will need a Life-vest on discharge and eventual AICD once medical therapy started. Resp- intubated. on fio2 30%. Po2 better. CXR today. Empiric abx. minimal secretions from ETT. no weaning at this time till improved mental status. ID- off hypothermia now. WBC 22. Check CXR today. Left arm thrombophelbitis resolved. Empiric zosyn/vanco. Not on further pressors. unclear source of any infectious etiology at this time. Blood cultures sent yesterday. Reactive process? Empiric Zosyn/vanco (day#2). GI- Started promote feeds, 40cc/hour now. Monitor residuals. PPI daily IV for GI proph. Renal- Cr okay. Mild Metabolic acidosis+. Hypokalemia, replete IV K. Check BMP q12h. Cont NS 50cc/hr. Urine output is better, positive balance. Lasix 20mg iv x1 today. Multifactorial WES earlier, from KADI (cath)/post arrest ischemic injury/hypotension. deutsch+ Heme- anemia, no bleeding, drop in h/h noted today but no source, will follow for now. Plt okay. Cont Asa for CAD. Lovenox 1mg/kg (80mg) Q12h for LV thrombus. Endo- fingersticks as needed, maintain BS <200 Musculsk- bedrest, pressure ulcer proph. Wounds- none Nutrition- ngt feeds DVT prophylaxis: scd and Lovenox therapeutic GI prophylaxis: ppi Central Line: right fem 05/07; left IJ 05/09 Arterial Line: right radial 05/07 Deutsch Cathetor: yes Disposition: ICU Code Status: full code Total Critical Care time is 60 minutes, excluding procedures/teaching Vito Martínez MD [employer] Mill Tender (Electronically Signed)
[2017-05-10] MEDS ORDERED: Norepinephrine 16MCG/ML IVPRE* 4,000 MCG/250 ML BAG IV SCH (10:00)
[2017-05-10] MEDS ORDERED: KCL 20 MEQ/100 ML IVPREMIX* 20 MEQ/100 ML BAG IV SCH (10:00)
[2017-05-10] MEDS: Potassium Chloride IV* 30 MEQ in NS 0.9% 250 ML* 250 ML IVPB SCH ×2 (10:03→13:12)
--- NOTE | 2017-05-10 11:20 | RAD ---
Indication: Evaluate for infiltrates. Single frontal view of the chest performed at 1030 hours was reviewed. Comparison is made with previous exam dated May 09, 2017. No mediastinal shift is noted. ET tube is at the level of T3-T4. Lung sheffield are clear. Central line is in place. No changes noted since May 09, 2012. IMPRESSION: TUBES AND LINES APPEAR IN APPROPRIATE POSITION. NO EVIDENCE OF PNEUMONIA IS NOTED.
[2017-05-10] MEDS ORDERED: Magnesium Sulfate 1 GM IV* 1 GM/100 ML BAG IV ONE (11:30)
[2017-05-10] MEDS: Dexmedetomidine 4 MCG/ML 100 ML DRIP IVPB SCH ×6 (13:11→21:04)
[2017-05-10] MEDS: NS 0.9% 250 ML* 246 ML with Norepinephrine VIAL* 4 MG IV SCH ×2 (13:11)
[2017-05-10] MEDS: Midazolam IV for DRIP* 100 MG in NS 0.9% 100 ML* 80 ML IV SCH (13:22)
[2017-05-10] MEDS: Acetaminophen ADULT LIQ* 650 MG/20.3 ML UDC PO PRN ×2 (18:02→22:22)
[2017-05-10] MEDS: Atorvastatin* 80 MG TAB NG TUBE SCH (18:02)
[2017-05-11] MEDS: Metoprolol Tartrate TAB* 25 MG PO SCH ×4 (00:47→16:24)
[2017-05-11] MEDS: Vancomycin(*) 1,000 MG in NS 0.9% 250 ML* 250 ML IVPB SCH ×3 (00:47→16:32)
[2017-05-11] MEDS: Chlorhexidine MOUTHWASH 0.12%* 15 ML UDC TOPICAL SCH ×6 (00:47→20:18)
[2017-05-11] MEDS: Dexmedetomidine 4 MCG/ML 100 ML DRIP IVPB SCH ×6 (02:46→09:27)
[2017-05-11] MEDS: Propofol* 1000 MG (10 MG/ML 100 ml) @ Per Protocol (in ICU Pyxis) IV SCH ×2 (02:49→08:01)
[2017-05-11] MEDS: ZOSYN 3.375 GM Q6H per 30 MIN INFUSION IVPB SCH ×8 (04:22→21:13)
[2017-05-11 05:58] LABS: Hematocrit 30 % (42-52); Hemoglobin 9.8 g/dl (14.0-18.0); Mean Corpuscular HGB Conc 33 g/dl (31-36); Mean Corpuscular Hemoglobin 30 pg (27-31); Mean Corpuscular Volume 91 fL (80-94); Mean Platelet Volume 9 um3 (7.4-10.4); Platelet Count 231 10^3/ul (150-450); Red Blood Count 3.29 10^6/ul (4.0-5.4); Red Cell Distribution Width 15 % (10.5-15); White Blood Count 17.2 10^3/ul (3.5-10.8)
[2017-05-11 06:07] LABS: EGFR Non-African American 71.8 (>60)
[2017-05-11] MEDS ORDERED: Potassium Chloride LIQUID* 20 MEQ PACKET PO ONE ×2 (08:47→18:00)
[2017-05-11] MEDS ORDERED: KCL 20 MEQ/100 ML IVPREMIX* 20 MEQ/100 ML BAG IV SCH (09:00)
[2017-05-11] MEDS ORDERED: Lansoprazole susp Kit 3 MG/ML (30 MG = 10 ML) PO SCH (09:00)
--- NOTE | 2017-05-11 09:33 | PN ---
Progress Note - Progress Note Date of Service: 05/11/17 Note: Progress Note - Critical Care 24 hour events: -intubated -off pressors/ -woke up and followed all commands off sedation yesterday. did become restless and agitated and had to be resedated -this mornign, awake, follows some commands on mild sedation -low grade temps overnight 100.6 tmax; BP stable, HR stable -minimal secretions overnigth but had more yesterday daytime, no sample sent -right fem cooling cathetor discontinued, right radial a-line clotted and was discontinues -no bleeding noted anywhere; deutsch in place. Tele: sinus rhythm Vitals: Vital Signs Temp 99.1 F 05/11/17 09:00 Pulse 76 05/11/17 09:00 Resp 18 05/11/17 09:00 BP 138/96 05/11/17 09:00 Pulse Ox 100 05/11/17 09:00 Intake & Output 05/10/17 05/11/17 05/11/17 18:59 06:59 18:59 Intake Total 1936.3 6743 94 Output Total 1625 950 Balance 311.3 5793 94 Weight 166 lb 3.657 oz Intake: IV Fluids 1262.6 6022 ABX - VANCOMYCIN 48.6 575 ABX - ZOSYN 325 KCL 391 NS (0.9%) 386 781 banana bag 437 4341 IVPB 500 ABX - VANCOMYCIN 300 ABX - ZOSYN 100 Magnesium 100 Medicated IV 155.7 229 CC - Dobutamine 20.1 CC - Propofol/Diprivan 118 229 midazolam 17.6 IV Narcotic Infusion 18 Versed 18 Tube Feeding 492 94 Output: Deutsch 1625 950 Other: # Bowel Movements 1 Estimated Stool Amount Small O2/Vent: 16/500/+5/30% -> PS 10/5 40% Infusions: propofol, ns 50cc/hour Current Medications: Acetaminophen (Tylenol Adult Liq*) 650 mg PO Q4H PRN PRN Reason: TEMP EQUAL OR GREATER 101 F Last Admin: 05/10/17 22:22 Dose: 650 mg Aspirin (Aspirin Low Dose Tab*) 81 mg NG TUBE DAILY [facility] Last Admin: 05/10/17 08:49 Dose: 81 mg Atorvastatin Calcium (Lipitor*) 80 mg NG TUBE 1700 [facility] Last Admin: 05/10/17 18:02 Dose: 80 mg Chlorhexidine Gluconate (Peridex Mouth Wash 0.12%*) 15 ml TOPICAL Q4H [facility] Last Admin: 05/11/17 04:22 Dose: 15 ml Enoxaparin Sodium (Lovenox(*)) 80 mg SUBCUT Q12H [facility] Last Admin: 05/10/17 21:04 Dose: 80 mg Propofol (Diprivan*) 100 mls @ 19.051 mls/hr IV .(Initial Rate) [facility]ER[facility]; 50 MCG/KG/ MIN PRN Reason: Protocol Last Admin: 05/11/17 08:01 Dose: 16.3 mls/hr Multivitamins 10 ml/ Thiamine HCl 100 mg/ Folic Acid 1 mg/Sodium Chloride 1, 011.2 mls @ 50 mls/hr IVPB Q24HR [facility] Last Admin: 05/10/17 08:38 Dose: 50 mls/hr Sodium Chloride (Ns 0.9% 1000 Ml*) 1,000 mls @ 50 mls/hr IV .per rate [facility] Last Admin: 05/09/17 04:31 Dose: 50 mls/hr Vancomycin HCl 1,000 mg/ (Sodium Chloride) 250 mls @ 166.667 mls/hr IVPB Q8H [facility] Last Admin: 05/11/17 00:47 Dose: 166.667 mls/hr Piperacillin Sod/Tazobactam (Sod 3.375 gm/ Sodium Chloride) 100 mls @ 200 mls/ hr IVPB Q6H [facility] Last Admin: 05/11/17 04:22 Dose: 200 mls/hr Norepinephrine Bitartrate 4 mg (/ Sodium Chloride) 250 mls @ 3.75 mls/hr IV Q24H [facility]; 1 MCG/MIN PRN Reason: Protocol Last Admin: 05/10/17 13:11 Dose: Not Given Dexmedetomidine HCl 200 mcg/ (Sodium Chloride) 50 mls @ 11.32 mls/hr IVPB Q4H [facility]; 0.01 MCG/KG/MIN PRN Reason: Protocol Last Admin: 05/11/17 09:27 Dose: Not Given Potassium Chloride 20 meq/ (Sodium Chloride) 110 mls @ 55 mls/hr IVPB Q2H [facility] Stop: 05/11/17 13:29 Lansoprazole (Lansoprazole Susp Kit) 30 mg PO DAILY [facility] Metoprolol Tartrate (Lopressor Tab*) 25 mg PO Q6H [facility] Last Admin: 05/11/17 06:23 Dose: 25 mg Pharmacy Consult (Vancomycin Per Pharmacy*) 1 note FOLLOW UP .VANC PER PHARMACY [facility] Pharmacy Consult (Zosyn Per Pharmacy*) 1 note FOLLOW UP .ZOSYN PER PHARMACY [facility] Potassium Chloride (Klor-Con Liquid*) 40 meq PO ONCE ONE Stop: 05/11/17 18:01 Physical Exam: General: intubated, awakens, no distress, on sedation Head: normocephalic, atraumatic HEENT: no pallor, no icterus, moist mucous membranes Neck: soft, supple, no jvd, CVS: normal rate, regular, no murmur Resp: bilateral air entry, no rhales, no wheeze, no rhonchi, no acc muscle use Abdomen: soft, nondistended, bowel sounds present Ext: pulses+, warm, no edema; left arm thrombophlebitis site resolved Skin: intact, no breakdown, no dryness Neuro: intubated, awake, follows simple commands on sedation now, pupils reactive bilaterally. Labs: Laboratory Results - last 24 hr 05/10/17 05/10/17 05/10/17 06:00 12:57 18:10 WBC RBC Hgb Hct MCV MCH MCHC RDW Plt Count MPV Sodium Potassium Chloride Carbon Dioxide Anion Gap BUN Creatinine Est GFR ( Amer) Est GFR (Non-Af Amer) BUN/Creatinine Ratio Glucose POC Glucose (mg/dL) 127 H 125 H Calcium Magnesium 1.4 L Total Bilirubin Direct Bilirubin 0.10 Indirect Bilirubin 0.3 AST ALT Alkaline Phosphatase Total Protein Albumin Globulin Albumin/Globulin Ratio 05/10/17 05/11/17 05/11/17 22:06 05:36 05:36 WBC 17.2 H RBC 3.29 L Hgb 9.8 L Hct 30 L MCV 91 MCH 30 MCHC 33 RDW 15 Plt Count 231 MPV 9 Sodium 141 Potassium 3.3 L Chloride 116 H Carbon Dioxide 18 L Anion Gap 7 BUN 10 Creatinine 1.08 Est GFR ( Amer) 92.3 Est GFR (Non-Af Amer) 71.8 BUN/Creatinine Ratio 9.3 Glucose 102 H POC Glucose (mg/dL) 114 H Calcium 8.0 L Magnesium Total Bilirubin 0.50 Direct Bilirubin Indirect Bilirubin AST 19 ALT 19 Alkaline Phosphatase 94 Total Protein 6.2 L Albumin 2.6 L Globulin 3.6 Albumin/Globulin Ratio 0.7 L Imaging: cxr 05/07 ett above serjio, no infiltrate/effusion CT brain 05/09 - no acute findings noted CT chest 05/09 - small bilateral pleural effusions, mild atelectasis noted CXR 05/09 - some right lower lobe infiltrate was noted, ett above serjio cxr 05/11 - ett okay, right lower lobe more prominent consolidation apparent Assessment: 51y M with unknown past medical history. Patient was found down at his work, no trauma but suddenly collapsed. Bystander CPR started, EMS called. On Arrival given 2 defibrillations, ROSC was achieved and no further CPR as I was told. They noted ST elevations on EMS EKG but unable to transmit. On arrival to ER, EKG with anterior ST elevations noted. Code called (ABC and STEMI ). Patient was not responsive, poor resp effort, intubated by ER physician. BP stable 90-100s, in NSR. 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 Started on hypothermia protocol -VT/VF Cardiac arrest -Acute hypoxic respiratory failure -Severe CAD of LAD, occluded with collaterals -Hypothermia protocol, completed 05/10 -Metabolic acidosis -Hypertensive Emergency, resolved -Anemia -WES -Right lower lobe pneumonia, suspect aspiration pneumonia 04/18 to arrest -left arm thrombophlebitis, improved history of alcohol abuse Plan: Neuro- post arrest, rewarmed now. On mild sedation, follows all commands. Decrease sedation, plan for vent weaning. Neurochecks q1h. EEG reviewed, slowing but no focal seizures. CT brain 05/09 no acute findings. Folic acid/ thiamine/mvi due to alcohol abuse history. CVS- -s/p VT/VF arrest. No pressors/inotropes. BP stable. no arrythmias. positive balance, repeat lasix 20mg iv x1. replete IV K and Magnesium. Cont asa/statin. Lovenox 80mg Sq Q12h for LV thrombus. Cont Metoprolol 25mg po q6h. change IVF to 1/2 NS 50cc/hour for now. -s/p cath with chronic occlusion. Suspect chronic ischemia and ischemic VT as cause of arrest. ECHO with severe LV dysfunction and anterior LV thrombus. Medical management at this point. Will need a Life-vest on discharge and eventual AICD once medical therapy started. Resp- intubated. on fio2 30%. Mental status better, less secretions. CXR 05/11 with RLL consolidation more apparent. COnt IV Abx. PS for vent weaning today. ID- tmax 100.6, low grade yesterday off warmer. WBC 22->17. CXR increased RLL consolidation. Left arm thrombophelbitis resolved. Send sputum culture. BLood culture nothing identified yet. Cont zosyn/vanco (day#3). GI- Promote feeds, 40cc/hour, tolerating. change to jevity once extubated. PPI PO. Renal- Cr okay. Mild Metabolic acidosis+. Hypokalemia, replete IV K. Replete Mg IV. Urine output is better, positive balance. Lasix 20mg iv x1 today. deutsch+. Heme- anemia, h/h upper 9s. Cont to monitor while on asa/lovenox bid. Plt okay. Cont Asa for CAD. Lovenox 1mg/kg (80mg) Q12h for LV thrombus. Endo- fingersticks as needed, maintain BS <200 Musculsk- bedrest, pressure ulcer proph. Wounds- none Nutrition- ngt feeds DVT prophylaxis: scd and Lovenox therapeutic GI prophylaxis: ppi Central Line: left IJ 05/09 Arterial Line: - Deutsch Cathetor: yes Disposition: ICU Code Status: full code Total Critical Care time is 45 minutes, excluding procedures/teaching Vito Martínez MD Motor Vehicle Salesperson (Electronically Signed)
[2017-05-11] MEDS ORDERED: Magnesium Sulfate 2 GM IV* 2 GM/50 ML BAG IVPB ONE ×2 (09:38→18:00)
[2017-05-11] MEDS: Potassium Chloride IV* 20 MEQ in NS 0.9% 100 ML* 100 ML IVPB SCH ×2 (09:45→13:16)
[2017-05-11] MEDS: Aspirin Low Dose CHEW TAB* 81 MG NG TUBE SCH (09:52)
[2017-05-11] MEDS: Acetaminophen ADULT LIQ* 650 MG/20.3 ML UDC PO PRN ×2 (09:52→18:02)
[2017-05-11] MEDS: Multiple Vitamin IV ADULT* 10 ML, Thiamine IV* 100 MG, Folic Acid IV* 1 MG in NS 0.9% 1... IVPB SCH (10:17)
[2017-05-11] MEDS: NS 0.9% 250 ML* 246 ML with Norepinephrine VIAL* 4 MG IV SCH ×2 (10:28)
--- NOTE | 2017-05-11 10:34 | PN ---
Progress Note - Progress Note Date of Service: 05/11/17 Note: Patient does meet sepsis criteria as far as being febrile, tachypneic, WBC elevation and now new Right lower developing infiltrate LIkley more to be aspiration pneumonia developing given cardiac arrest state more than an HCAP event. WBC elevation started 48 hours back but infiltrate delayed. GOod cap refill, skin turgor normal, acidosis improved from prior, LA negative as prior. Bp stable. less febrile early this morning now. Sepsis 2/2 to aspiration pneumonia Vito Martínez MD Drafter Detail
[2017-05-11] MEDS: NS 0.45% 1000 ML BAG* 1,000 ML IV SCH (10:38)
[2017-05-11] MEDS ORDERED: Furosemide IV* 10 MG/ML 2 ML VIAL (20 MG) IV SLOW PU ONE (10:46)
[2017-05-11] MEDS: Enoxaparin(*) 80 MG/0.8 ML SYR SUBCUT SCH ×2 (10:51→20:18)
--- NOTE | 2017-05-11 11:06 | RAD ---
Indication: Orogastric tube placement. Single frontal view of the chest performed at 0515 hours was reviewed. Comparison is made with previous exam dated May 10, 2017. Right basilar atelectasis is noted. Heart is mildly enlarged. ET tube is in place. Central line is in place. Nasogastric tube is noted in the left upper quadrant. IMPRESSION: THERE IS RIGHT BASILAR ATELECTASIS IS NOTED. OROGASTRIC TUBE IS IN THE LEFT UPPER QUADRANT
--- NOTE | 2017-05-11 12:36 | ECHO ---
Patient: KYLIE COLE V [facility] Rec#: [id number] : 1965 Date: 05/11/2017 Age: 51y Height: 170 cm / 66.9 in Weight: 74 kg / 163.1 lbs Sex: M BSA: 1.85 Room#: ICU 5 Admit Date#: 05/07/2017 Type: Inpatient Referring: Francisco Haskins MD Reading: Ariel Magallanes DO Radio Performer: Lana Fuentes,RDCS,RDMS Transthoracic Echocardiogram Indication: Cardiomyopathy, LV thrombus BP: 132/96 HR: 85 Rhythm: NSR Findings History: LIMITED ECHO. S/P cardiac arrest, [place], PCI. Technical Comments: The study quality is good. Left Ventricle: There are multiple regional wall motion abnormalities. There is severely decreased left ventricular systolic function. The estimated ejection fraction is 25-30%. appears closer to 30% The mid inferoseptal wall segment is hypokinetic (score 2). The mid anteroseptal, mid anterior, apical septal, apical anterior, apical lateral, and apical inferior wall segments are akinetic (score 3). Overall wallmotion score index is 1.81 A thrombus is visualized in the left ventricular apex. Pericardium: There is no significant pericardial effusion. Conclusions There is severely decreased left ventricular systolic function with an estimated LVEF of 30% and wall motion abnormality in the distribution of a mid wrap around LAD. There is a large thrombus that fills much of the LV apex Cannot exclude a non-occlusive thrombus in the IVC Limited study to re-evaluate LVEF. Compard to prior study from 05/08/2017 and on direct comparison, the wall motion of non-infarcted myocardial segments appears improved with subsequent LVEF improvement. The LV apical thrombus appears more organized. An non-occlusive IVC thrombus cannot be excluded. Wallmotion BAS Normal BA Normal BAL Normal KRISHAN Normal BI Normal BIS Normal MAS Akinetic MA Akinetic MAL Normal MIL Normal TX Normal MIS Hypokinetic Akinetic AA Akinetic AL Akinetic AI Akinetic APEX Akinetic
[2017-05-11] MEDS: Spironolactone TAB* 25 MG PO SCH (13:16)
[2017-05-11] MEDS: Captopril TAB* 12.5 MG PO SCH ×2 (14:30→20:18)
[2017-05-11] MEDS: Atorvastatin* 80 MG TAB NG TUBE SCH (16:24)
[2017-05-11] MEDS ORDERED: Metoprolol Tartrate IV* 1 MG/ML 5 ML VIAL ONE (21:10)
[2017-05-11] MEDS ORDERED: Metoprolol Tartrate IV* 1 MG/ML 5 ML VIAL IV PRN (22:02)
[2017-05-12] MEDS: Vancomycin(*) 1,000 MG in NS 0.9% 250 ML* 250 ML IVPB SCH ×2 (00:42→11:10)
[2017-05-12] MEDS: Chlorhexidine MOUTHWASH 0.12%* 15 ML UDC TOPICAL SCH ×6 (00:42→20:33)
[2017-05-12] MEDS: Metoprolol Tartrate TAB* 25 MG PO SCH ×2 (00:42→06:28)
[2017-05-12] MEDS ORDERED: amLODIPine TAB* 5 MG PO ONE ×2 (02:00→08:00)
[2017-05-12] MEDS: ZOSYN 3.375 GM Q6H per 30 MIN INFUSION IVPB SCH ×4 (04:56→11:10)
[2017-05-12] MEDS: NS 0.45% 1000 ML BAG* 1,000 ML IV SCH (04:56)
[2017-05-12 06:45] LABS: Hematocrit 30 % (42-52); Hemoglobin 9.7 g/dl (14.0-18.0); Mean Corpuscular HGB Conc 33 g/dl (31-36); Mean Corpuscular Hemoglobin 30 pg (27-31); Mean Corpuscular Volume 91 fL (80-94); Mean Platelet Volume 9 um3 (7.4-10.4); Platelet Count 222 10^3/ul (150-450); Red Blood Count 3.25 10^6/ul (4.0-5.4); Red Cell Distribution Width 14 % (10.5-15); White Blood Count 12.1 10^3/ul (3.5-10.8)
[2017-05-12] MEDS: Enoxaparin(*) 80 MG/0.8 ML SYR SUBCUT SCH ×2 (07:48→20:28)
--- NOTE | 2017-05-12 07:54 | RAD ---
INDICATION: Right lower lobe pneumonia COMPARISON: May 11, 2017 TECHNIQUE: An AP portable view obtained at 0606 hours is submitted. FINDINGS: Bones/Soft Tissues: There are no acute bony findings. Endotracheal tube is been removed. There is left IJ catheter in the superior vena cava. The position of the catheter is unchanged Cardiomediastinal: The cardiomediastinal silhouette is normal. Lungs: There is infiltrate in the right lung base with mild improvement. The left lung is clear. Pleura: There are no pleural effusions. Other: None IMPRESSION: RIGHT BREAST INFILTRATE WITH MILD IMPROVEMENT.
[2017-05-12] MEDS: Spironolactone TAB* 25 MG PO SCH (08:39)
[2017-05-12] MEDS: Famotidine TAB* 20 MG PO SCH (08:39)
[2017-05-12] MEDS: Aspirin Low Dose CHEW TAB* 81 MG NG TUBE SCH (08:40)
[2017-05-12] MEDS: amLODIPine TAB* 5 MG PO SCH (08:40)
[2017-05-12] MEDS ORDERED: nitroGLYCERIN DRIP* 25,000 MCG/250 ML BTL ONE (08:45)
[2017-05-12] MEDS ORDERED: Lisinopril TAB* 5 MG PO SCH (09:00)
[2017-05-12] MEDS ORDERED: nitroGLYCERIN DRIP* 25,000 MCG/250 ML BTL IV SCH (10:00)
[2017-05-12] MEDS ORDERED: Carvedilol TAB* 6.25 MG PO ONE ×2 (10:29→11:32)
[2017-05-12] MEDS ORDERED: Carvedilol TAB* 6.25 MG ONE (10:33)
--- NOTE | 2017-05-12 14:08 | PN ---
Date of Service: 05/12/17 Critical Care Services: Major problem today is high BP (220/125) requiring nitroglycerin drip - has been placed on oral Rx with carvedilol, amlodipine, and lisinopril, and doses are being adjusted too achieve the desired BP. Has also had fevers, attributed to pneumonia. Vital Signs: Temp Pulse Resp BP SpO2 FiO2 100.0 F 82 19 143/91 96 35 Physical Exam: Gen:Alert and oriented, but is skow to respond HEENT: No JVD Lungs:clear Cardiac: Reg rhythm Abdomen: Claims tenderness to palpation but no guarding or rebound. BS hyperactive. Extremities:No cyanosis or edema Fluid Balance (Past 24 Hours): 05/12/17 06:59 Intake Total 4451 Output Total 3575 Balance 876 Weight 165 lb Intake: IV Fluids 2965 ABX - VANCOMYCIN ABX - ZOSYN 131 KCL 139 Magnesium 50 NS (0.45%) 1328 NS (0.9%) 298 banana bag 1019 IVPB 696 ABX - VANCOMYCIN 268 ABX - ZOSYN 89 KCL Magnesium NS (0.45%) 339 NS (0.9%) banana bag Medicated IV 46 CC - Propofol/Diprivan 46 midazolam IV Narcotic Infusion Versed Oral 650 Tube Feeding 94 Output: NG Tube Drainage Amount Hoff 3575 Other: Date of Last Bowel 05/12/2017 Movement # Bowel Movements 1 Estimated Stool Amount Medium Labs: 05/12/17 05/12/17 06:20 06:20 WBC 12.1 H Hgb 9.7 L Hct 30 L Plt Count 222 Sodium 140 Potassium 3.6 Chloride 112 H Carbon Dioxide 17 L BUN 11 Creatinine 1.04 Est GFR ( Amer) 96.4 Est GFR (Non-Af Amer) 75.0 BUN/Creatinine Ratio 10.6 Glucose 91 Magnesium 2.0 Studies: Sputum culture growing Staph aureus. Blood cultures negative. Nutrition: Started (today) on an unrestricted diet with thin liquids. Impression: Major problems now are high BP and apparent staphylococcal pneumonia. Plan: 1. Adjust oral BP meds as mentioned previously. Continue NTG drip until BP goal is reached on oral meds. 2. Continue vancomycin and d/c Zosyn. Critical Care Time: 40 minutes
[2017-05-12] MEDS ORDERED: NS 0.45% 1000 ML BAG* 1,000 ML IV SCH (14:10)
[2017-05-12] MEDS: Vancomycin(*) 1,250 MG in NS 0.9% 250 ML* 250 ML IVPB SCH ×2 (15:03→21:44)
[2017-05-12] MEDS: Atorvastatin* 80 MG TAB NG TUBE SCH (16:41)
--- NOTE | 2017-05-12 18:14 | RAD ---
INDICATION: Lower extremity edema. COMPARISON: No relevant prior exams available on the [facility] [place] for comparison. TECHNIQUE: Cage scale, color Doppler, and spectral analysis of the deep veins of the BILATERAL lower extremities. Vessel compression, phasicity, and augmentation assessed. REPORT: Slow flow/venous stasis visualized at the RIGHT common femoral vein through the mid segment of the femoral vein. The RIGHT common femoral, great saphenous, profunda femoral, femoral, popliteal, peroneal, and posterior tibial veins are patent. The LEFT common femoral, great saphenous, profunda femoral, femoral, popliteal, peroneal, and posterior tibial veins are patent. Diffuse bilateral lower extremity subcutaneous edema noted. IMPRESSION: 1. No evidence for RIGHT or LEFT lower extremity DVT. 2. RIGHT lower extremity venous stasis. 3. Bilateral lower extremity subcutaneous edema.
[2017-05-12] MEDS ORDERED: Lisinopril TAB* 5 MG PO ONE (19:30)
[2017-05-12] MEDS ORDERED: Carvedilol TAB* 6.25 MG PO SCH (21:00)
[2017-05-12] MEDS: Acetaminophen ADULT LIQ* 650 MG/20.3 ML UDC PO PRN (23:47)
[2017-05-13] MEDS: Chlorhexidine MOUTHWASH 0.12%* 15 ML UDC TOPICAL SCH ×2 (00:37→04:21)
[2017-05-13 04:58] LABS: Hematocrit 27 % (42-52); Hemoglobin 9.1 g/dl (14.0-18.0); Mean Corpuscular HGB Conc 34 g/dl (31-36); Mean Corpuscular Hemoglobin 31 pg (27-31); Mean Corpuscular Volume 90 fL (80-94); Mean Platelet Volume 9 um3 (7.4-10.4); Platelet Count 207 10^3/ul (150-450); Red Blood Count 2.99 10^6/ul (4.0-5.4); Red Cell Distribution Width 14 % (10.5-15)
[2017-05-13 05:11] LABS: EGFR Non-African American 86.4 (>60)
[2017-05-13] MEDS: Vancomycin(*) 1,250 MG in NS 0.9% 250 ML* 250 ML IVPB SCH ×3 (05:25→23:36)
[2017-05-13] MEDS ORDERED: Potassium Chlor TAB* 20 MEQ TAB.ER PO ONE (07:15)
[2017-05-13] MEDS: Aspirin Low Dose CHEW TAB* 81 MG NG TUBE SCH (08:40)
[2017-05-13] MEDS: amLODIPine TAB* 5 MG PO SCH (08:40)
[2017-05-13] MEDS: Lisinopril TAB* 5 MG PO SCH ×2 (08:40→20:41)
[2017-05-13] MEDS: Enoxaparin(*) 80 MG/0.8 ML SYR SUBCUT SCH ×2 (08:41→20:41)
[2017-05-13] MEDS: Spironolactone TAB* 25 MG PO SCH (08:41)
[2017-05-13] MEDS: Famotidine TAB* 20 MG PO SCH (08:41)
[2017-05-13] MEDS ORDERED: Carvedilol TAB* 6.25 MG PO SCH (09:00)
[2017-05-13] MEDS ORDERED: ceFAZolin VIAL 1 GM in NS *SYRINGE * * 10 ML ONE (14:00)
[2017-05-13] MEDS ORDERED: ceFAZolin 1 GM/10 ML flush(*) SYRINGE for pocket flush (cardiology) FLUSH ONE (14:00)
[2017-05-13] MEDS ORDERED: ceFAZolin 2 GM in NS 0.9% 100 ml IVPB ONE (14:00)
[2017-05-13] MEDS: Atorvastatin* 80 MG TAB NG TUBE SCH (18:21)
[2017-05-13] MEDS: Lactobacillus Acidophilu (GG)* 1 CAP CAP PO SCH (18:21)
[2017-05-13] MEDS: Psyllium PAK PO SCH (18:21)
--- NOTE | 2017-05-13 18:53 | PN ---
Date of Service: 05/13/17 Critical Care Services: Patient has done well from a cardiopulmonary standpoint, but continues to have cognitive impairment. Cardiology service to insert ICD tomorrow. Has diarrhea without fever, Rx probiotics and metamucil. C diff pending. BP is coming under control with increasing oral Rx and decreasing IV nitroglycerin. Vital Signs: Temp Pulse Resp BP SpO2 FiO2 100.0 F 92 17 155/102 94 35 Physical Exam: Gen: Alert. Responds slowly to verbal commands. HEENT: No JVD Lungs: Clear Abdomen: Not distended. No tenderness. Extremities:No cyanosis or edema. Fluid Balance (Past 24 Hours): 05/13/17 06:59 Intake Total 2135.5 Output Total 2375 Balance -239.5 Weight 166 lb Intake: IV Fluids 1079 ABX - VANCOMYCIN 760 ABX - ZOSYN KCL Magnesium NS (0.45%) 319 NS (0.9%) banana bag IVPB 100 ABX - VANCOMYCIN ABX - ZOSYN 100 Magnesium NS (0.45%) Medicated IV 106.5 CC - Dobutamine CC - Nitroglycerine/ 106.5 Tridil IV Narcotic Infusion Versed Oral 850 Tube Feeding Output: Hoff 2125 Liquid Stool 250 Other: Date of Last Bowel 05/13/17 Movement # Bowel Movements 1 Estimated Stool Amount Medium Labs: 05/13/17 05/13/17 04:30 04:30 WBC 8.0 Hgb 9.1 L Hct 27 L MCV 90 Plt Count 207 Sodium 137 Potassium 3.1 Chloride 109 Carbon Dioxide 21 L Anion Gap 7 BUN 10 Creatinine 0.92 Glucose 100 Calcium 8.1 L Studies: None Nutrition: Oral diet Impression: Slow but steady improvement. Patient probably has antibiotic-associated diarrhea. Plan: 1. Continue to adjust PO antihypertensives and wean off IV nitroglycerin. 2. W/ u diarrhea 3. Correct hypokalemia. Critical Care Time: 40 minutes
[2017-05-13] MEDS ORDERED: KCL 20 MEQ/100 ML IVPREMIX* 20 MEQ/100 ML BAG IV SCH (19:00)
[2017-05-13] MEDS: Carvedilol TAB* 25 MG PO SCH (20:41)
[2017-05-13] MEDS ORDERED: NS 0.9% 250 ML* 250 ML ONE (20:49)
[2017-05-13] MEDS: Potassium Chloride IV* 30 MEQ in NS 0.9% 250 ML* 250 ML IVPB SCH (21:43)
[2017-05-13] MEDS: NS 0.9% 1000 ML* 1,000 ML IV SCH (23:45)
[2017-05-14] MEDS: Potassium Chloride IV* 30 MEQ in NS 0.9% 250 ML* 250 ML IVPB SCH (01:12)
[2017-05-14] MEDS ORDERED: Vancomycin Trough Check NOTE FOLLOW UP ONE (05:30)
[2017-05-14 06:11] LABS: Hematocrit 27 % (42-52); Hemoglobin 8.9 g/dl (14.0-18.0); Mean Corpuscular HGB Conc 33 g/dl (31-36); Mean Corpuscular Hemoglobin 30 pg (27-31); Mean Corpuscular Volume 89 fL (80-94); Mean Platelet Volume 9 um3 (7.4-10.4); Platelet Count 207 10^3/ul (150-450); Red Blood Count 3.02 10^6/ul (4.0-5.4); Red Cell Distribution Width 14 % (10.5-15); White Blood Count 7.4 10^3/ul (3.5-10.8)
[2017-05-14 06:21] LABS: EGFR Non-African American 104.5 (>60)
[2017-05-14 06:22] LABS: Vancomycin Trough 17.9 mcg/mL
[2017-05-14] MEDS: Vancomycin(*) 1,250 MG in NS 0.9% 250 ML* 250 ML IVPB SCH (06:33)
[2017-05-14] MEDS ORDERED: Lidocaine 1% INJ* 10 MG/ML 30 ML SDV ONE (06:47)
[2017-05-14] MEDS ORDERED: SODIUM CHLORIDE 0.9% ONE (07:00)
[2017-05-14] MEDS ORDERED: CEFAZOLIN ONE (07:00)
[2017-05-14] MEDS ORDERED: ceFAZolin 1 GM VIAL(*) 2 GM in NS 0.9% 100 ML* 100 ML IVPB ONE (07:00)
[2017-05-14] MEDS ORDERED: fentaNYL* 50 MCG/ML 2 ML VIAL (100 MCG VIAL) ONE (07:23)
[2017-05-14] MEDS ORDERED: Midazolam* 1 MG/ML 5 ML VIAL (5 MG) ONE (07:24)
[2017-05-14] MEDS ORDERED: Pneumococcal *Vac Polyvalent 0.5 ML VIAL IM ONE (09:00)
[2017-05-14] MEDS ORDERED: Influenza VAC *QUAD* 2017-18* 0.5 ML SYRINGE IM ONE (09:00)
[2017-05-14] MEDS: Lactobacillus Acidophilu (GG)* 1 CAP CAP PO SCH (10:25)
[2017-05-14] MEDS: Spironolactone TAB* 25 MG PO SCH (10:26)
[2017-05-14] MEDS: Famotidine TAB* 20 MG PO SCH (10:26)
[2017-05-14] MEDS: Carvedilol TAB* 25 MG PO SCH ×2 (10:26→21:39)
[2017-05-14] MEDS: Lisinopril TAB* 5 MG PO SCH (10:26)
[2017-05-14] MEDS: amLODIPine TAB* 5 MG PO SCH (10:27)
[2017-05-14] MEDS: Aspirin Low Dose CHEW TAB* 81 MG NG TUBE SCH (10:27)
[2017-05-14] MEDS: Psyllium PAK PO SCH (10:27)
--- NOTE | 2017-05-14 10:58 | RAD ---
HISTORY: Status post device implant COMPARISONS: May 12, 2017 VIEWS: 1: frontal portable view of the chest at 10:42 AM FINDINGS: LINES AND TUBES: A left-sided AICD is noted. There has been interval removal of the left internal jugular venous catheter. CARDIOMEDIASTINAL SILHOUETTE: The cardiomediastinal silhouette is normal for portable technique. PLEURA: There is no appreciable pneumothorax. LUNG PARENCHYMA: There is patchy alveolar opacification of the middle lower lung [place] bilaterally. ABDOMEN: The upper abdomen is clear. There is no subphrenic gas. BONES AND SOFT TISSUES: No bone or soft tissue abnormalities are noted. IMPRESSION: 1. STATUS POST LEFT AICD PLACEMENT. 2. PATCHY AIRSPACE DISEASE OF THE LUNG BASES BILATERALLY.
--- NOTE | 2017-05-14 11:41 | PN ---
Cardiology Progress Note Date of Service: 05/14/17 - CC: swelling at ICD site reported by nurse The patient's nurse noted the ICD pocket "popped" in size c/w arrival to bed. The patient denies pain beyond mild tenderness. Incision and site examined. No external bleeding. Small amount of fluctuance around device, but margins still easily discernable. A new pressure dressing was applied, the patient stated it felt better with the dressing. Ice was additionally re applied over the dressing.
[2017-05-14] MEDS: Acetaminophen TAB* 325 MG PO PRN ×2 (14:55→22:39)
[2017-05-14] MEDS: ceFAZolin 1 GM VIAL(*) 1 GM in D5W 50 ML BAG* 50 ML IVPB SCH ×2 (15:00→22:40)
[2017-05-14] MEDS: NS 0.9% 1000 ML* 1,000 ML IV SCH (17:02)
[2017-05-14] MEDS: Atorvastatin* 80 MG TAB PO SCH (17:29)
--- NOTE | 2017-05-14 18:49 | PN ---
Date of Service: 05/14/17 Critical Care Services: Suzan has done well since ICD placement. Mental status has also improved - he is more interactive with family. Diarrhea has resolved, and BP is under control on oral agents. Vital Signs: Temp Pulse Resp BP SpO2 FiO2 100.2 F 82 19 149/101 94 98 Physical Exam: Gen: Alert, appears comfortable Lungs:Clear Abdomen: Not distended Extremities: No limb swelling Fluid Balance (Past 24 Hours): 05/14/17 06:59 Intake Total 1985 Output Total 2250 Balance -265 Weight 170 lb Intake: IV Fluids 1379 ABX - VANCOMYCIN 525 ABX - ZOSYN KCL 584 Magnesium NS (0.45%) NS (0.9%) 270 banana bag IVPB ABX - CEFAZOLIN Medicated IV 36 CC - Nitroglycerine/ 36 Tridil CC - Propofol/Diprivan Oral 570 Tube Feeding Output: Urine Hoff 2250 Liquid Stool Other: Date of Last Bowel 05/13/17 Movement # Bowel Movements 1 Estimated Stool Amount Large Labs: 05/14/17 05/14/17 05:40 05:40 WBC 7.4 RBC 3.02 L Hgb 8.9 L Hct 27 L MCV 89 MCH 30 MCHC 33 RDW 14 Plt Count 207 MPV 9 Sodium 137 Potassium 3.6 Chloride 109 Carbon Dioxide 20 L Anion Gap 8 BUN 9 Creatinine 0.78 Est GFR ( Amer) 134.4 Est GFR (Non-Af Amer) 104.5 BUN/Creatinine Ratio 11.5 Glucose 87 Calcium 8.2 L Vancomycin Trough 17.9 Nutrition: Oral diet Impression: Mental status slowly improving. Problem with diarrhea and abdominal cramping has resolved. Plan: Can probably be transferred out of ICU soon.
[2017-05-14] MEDS: Lisinopril TAB* 10 MG PO SCH (21:39)
[2017-05-14] MEDS ORDERED: D5W 50 ML BAG* 50 ML ONE (22:37)
--- NOTE | 2017-05-14 22:57 | OP ---
CC: Francisco Haskins MD * DATE OF OPERATION: 05/14/17 - ROOM #ICU-05 DATE OF : 63 SURGEON: Senthil Bartlett MD ANESTHESIA: Local anesthesia with conscious sedation. PRE-OP DIAGNOSIS: VF arrest, coronary artery disease, cardiomyopathy. POST-OP DIAGNOSIS: VF arrest, coronary artery disease, cardiomyopathy. OPERATIVE PROCEDURE: Single-chamber ICD implantation. ESTIMATED BLOOD LOSS: Nil. COMPLICATIONS: None. INDICATIONS: The patient is a 51-year-old gentleman, who had a witnessed arrest at his work place. He got CPR. When ambulance arrived, he was in a VF rhythm and was shocked. The patient had a cardiac catheterization, which showed an occluded LAD, which was probably chronic. His ejection fraction was 25%. ICD was recommended for secondary prevention of sudden cardiac . DESCRIPTION OF PROCEDURE: The patient was brought to the procedure room in a fasting state. Informed consent had been obtained prior to the procedure. All labs were reviewed. The patient's Lovenox was held at midnight last night. The patient was placed supine on the procedure table. His left deltopectoral area was cleaned and draped in usual fashion. 1% lidocaine was used for local anesthesia. The axillary vein was entered by a modified Seldinger technique and a guidewire was placed. A 4 cm incision was made in the pectoral area and blunt dissection was carried down to the pectoral fascia. A pocket was fashioned for the ICD. Over the wire, an 8-Slovenian sheath introducer was placed through which a right ventricular lead was advanced to the RV apex. The right ventricular lead is a Medtronic model 6935M, serial number [id number]. The right ventricular lead had an R-wave sensitivity of 8 impedance 558 ohms, threshold 0.7 volts at 0.5 milliseconds. The ventricular lead was sutured to the pectoral fascia. The pocket was flushed with antibiotic-infused normal saline. A generator was attached to the ventricular lead. The generator is a Medtronic Model [id number] serial number [id number]. The device was placed into the pocket. The surgical incision was closed in three layers. The patient was returned to the ICU in stable condition. [id number]/[facility] #: [id number] MTDD
[2017-05-15] MEDS ORDERED: ceFAZolin 1 GM* X ONE DOSE IVPB ×2 (07:00)
[2017-05-15 07:21] LABS: Hematocrit 28 % (42-52); Hemoglobin 9.3 g/dl (14.0-18.0); Mean Corpuscular HGB Conc 34 g/dl (31-36); Mean Corpuscular Hemoglobin 30 pg (27-31); Mean Corpuscular Volume 89 fL (80-94); Mean Platelet Volume 9 um3 (7.4-10.4); Platelet Count 227 10^3/ul (150-450); Red Blood Count 3.08 10^6/ul (4.0-5.4); Red Cell Distribution Width 14 % (10.5-15); White Blood Count 9.4 10^3/ul (3.5-10.8)
[2017-05-15] MEDS: Enoxaparin(*) 80 MG/0.8 ML SYR SUBCUT SCH ×2 (09:14→20:45)
[2017-05-15] MEDS: amLODIPine TAB* 5 MG PO SCH (09:15)
[2017-05-15] MEDS: Lisinopril TAB* 10 MG PO SCH ×2 (09:15→20:45)
[2017-05-15] MEDS: Aspirin Low Dose CHEW TAB* 81 MG PO SCH (09:15)
[2017-05-15] MEDS: Spironolactone TAB* 25 MG PO SCH (09:15)
[2017-05-15] MEDS: Carvedilol TAB* 25 MG PO SCH ×2 (09:15→20:45)
[2017-05-15] MEDS: Lactobacillus Acidophilu (GG)* 1 CAP CAP PO SCH (09:16)
[2017-05-15] MEDS: Psyllium PAK PO SCH (09:16)
[2017-05-15] MEDS: Cephalexin CAP* 250 MG PO SCH ×3 (09:16→20:45)
[2017-05-15] MEDS: Famotidine TAB* 20 MG PO SCH (09:16)
--- NOTE | 2017-05-15 10:08 | RAD ---
Indication: AICD device placement. 2 views of the chest are reviewed and compared to previous exam dated May 14, 2017. AICD device is in place. No pneumothorax is noted. Airspace disease in the right base is noted. IMPRESSION: AICD device in place. No pneumothorax is noted. Right basilar airspace disease persists.
[2017-05-15] MEDS ORDERED: Potassium Chlor TAB* 20 MEQ TAB.ER PO ONE (11:09)
[2017-05-15] MEDS ORDERED: ceFAZolin 1 GM VIAL(*) 1 GM in NS 0.9% 50 ML* 50 ML IVPB ONE (12:00)
[2017-05-15] MEDS ORDERED: ceFAZolin 2 GM PREMIX (*) 2 GM/50 ML BAG IVPB ONE (12:00)
--- NOTE | 2017-05-15 12:47 | PN ---
Date of Service: 05/15/17 Critical Care Services: Patient had an uneventful evening. Is up in bed and alert this AM. Appears comfortable Vital Signs: Temp Pulse Resp BP SpO2 FiO2 100 F 84 23 126/94 100 98 Physical Exam: Gen: Alert, but answers questions slowly Lungs: clear Cor: Irreg rhythm Abdomen: not distended Extremities: No cyanosis or edema. Fluid Balance (Past 24 Hours): 05/15/17 06:59 Intake Total 1694.7 Output Total 2900 Balance -1205.3 Weight Intake: IV Fluids 878.7 ABX - VANCOMYCIN KCL NS (0.45%) 67 NS (0.9%) 811.7 IVPB 456 ABX - CEFAZOLIN 185 ABX - VANCOMYCIN 270 ABX - ZOSYN NS (0.9%) 1 Medicated IV CC - Nitroglycerine/ Tridil Oral 360 Output: Urine 1780 Hoff 1120 Liquid Stool Other: Date of Last Bowel 1 Movement # Bowel Movements Estimated Stool Amount Medium Labs: 05/15/17 05/15/17 06:55 06:55 WBC 9.4 Hgb 9.3 Hct 28 MCV 89 Plt Count 227 Sodium 137 Potassium 3.4 Chloride 105 Carbon Dioxide 22 Anion Gap 10 BUN 9 Creatinine 0.84 Glucose 88 Calcium 8.5 L Studies: CXR: Infiltrate at right base - worse than prior CXR. Nutrition: Oral diet - intake good. Impression: Continues to improve. BP now controlled on oral meds, and ICD in place. Only concern is the infiltrate at the right lung base (probably in middle lobe) - WBCs normal, but has had borderline fever. This could represent a pneumonia or residual pulmonary edema. Plan: Culture sputum (if any produced) and start Zosyn empirically. Patient to be transferred to telemetry (for BP checks).
[2017-05-15] MEDS ORDERED: ceFAZolin VIAL 1 GM in NS *SYRINGE * * 10 ML ONE (14:00)
[2017-05-15] MEDS ORDERED: ceFAZolin 2 GM in NS 0.9% 100 ml IVPB ONE (14:00)
[2017-05-15] MEDS ORDERED: Warfarin TAB(*) 5 MG PO ONE (17:00)
[2017-05-15 17:48] LABS: INR 1.24 (0.77-1.02)
[2017-05-15] MEDS: Atorvastatin* 80 MG TAB PO SCH (17:55)
[2017-05-15] MEDS: Acetaminophen TAB* 325 MG PO PRN (19:19)
[2017-05-16] MEDS: Acetaminophen TAB* 325 MG PO PRN (03:31)
[2017-05-16 05:44] LABS: Hematocrit 25 % (42-52); Hemoglobin 8.3 g/dl (14.0-18.0); Mean Corpuscular HGB Conc 33 g/dl (31-36); Mean Corpuscular Hemoglobin 29 pg (27-31); Mean Corpuscular Volume 88 fL (80-94); Mean Platelet Volume 9 um3 (7.4-10.4); Platelet Count 240 10^3/ul (150-450); Red Blood Count 2.82 10^6/ul (4.0-5.4); Red Cell Distribution Width 14 % (10.5-15); White Blood Count 12.5 10^3/ul (3.5-10.8)
[2017-05-16 05:58] LABS: EGFR Non-African American 90.9 (>60); INR 1.38 (0.77-1.02)
[2017-05-16] MEDS ORDERED: Piperacillin/Tazobac ADVAN(*) 3.375 GM in NS 0.9% 100 ML* 100 ML IVPB SCH (08:00)
--- NOTE | 2017-05-16 08:12 | RAD ---
HISTORY: Evaluate for infiltrate, cardiac arrest COMPARISONS: May 15, 2017 VIEWS: 1: frontal portable view of the chest at 8:00 AM FINDINGS: LINES AND TUBES: A left-sided AICD is noted. CARDIOMEDIASTINAL SILHOUETTE: The cardiomediastinal silhouette is normal for portable technique. PLEURA: The costophrenic angles are sharp. No pleural abnormalities are noted. LUNG PARENCHYMA: There is focal confluent alveolar opacification of the right lower lung field. This is slightly progressed from the previous examination. ABDOMEN: The upper abdomen is clear. There is no subphrenic gas. BONES AND SOFT TISSUES: No bone or soft tissue abnormalities are noted. IMPRESSION: PERSISTENT AND SLIGHTLY PROGRESSED RIGHT LOWER LUNG CONSOLIDATION. RECOMMEND FOLLOW-UP UNTIL RESOLUTION TO EXCLUDE UNDERLYING PULMONARY PARENCHYMAL PATHOLOGY.
[2017-05-16] MEDS ORDERED: Vancomycin(*) 1,000 MG in NS 0.9% 250 ML* 250 ML IVPB ONE (08:30)
[2017-05-16] MEDS ORDERED: ZOSYN 3.375 GM x ONE DOSE over 30 miuntes IVPB ×2 (08:30)
--- NOTE | 2017-05-16 08:43 | PN ---
Subjective Date of Service: 05/16/17 Interval History: Pt states he is feeling fine. He states he has not had any rigors. He denies any pain. He is very slow to answer questions. Objective Active Medications: Acetaminophen (Tylenol Tab*) 650 mg PO Q4H PRN PRN Reason: PAIN AND/OR FEVER Last Admin: 05/16/17 03:31 Dose: 650 mg Amlodipine Besylate (Norvasc Tab*) 10 mg PO DAILY [facility] Last Admin: 05/15/17 09:15 Dose: 10 mg Aspirin (Aspirin Low Dose Tab*) 81 mg PO DAILY [facility] Last Admin: 05/15/17 09:15 Dose: 81 mg Atorvastatin Calcium (Lipitor*) 80 mg PO 1700 [facility] Last Admin: 05/15/17 17:55 Dose: 80 mg Carvedilol (Coreg Tab*) 25 mg PO BID [facility] Last Admin: 05/15/17 20:45 Dose: 25 mg Enoxaparin Sodium (Lovenox(*)) 80 mg SUBCUT Q12H [facility] Last Admin: 05/15/17 20:45 Dose: 80 mg Famotidine (Pepcid Tab*) 20 mg PO DAILY [facility] Last Admin: 05/15/17 09:16 Dose: 20 mg Vancomycin HCl 1,000 mg/ (Sodium Chloride) 250 mls @ 166.667 mls/hr IVPB ONCE ONE PRN Reason: Protocol Stop: 05/16/17 09:59 Piperacillin Sod/Tazobactam (Sod 3.375 gm/ Sodium Chloride) 100 mls @ 200 mls/ hr IVPB ONCE ONE Stop: 05/16/17 08:59 Piperacillin Sod/Tazobactam (Sod 3.375 gm/ Sodium Chloride) 100 mls @ 25 mls/ hr IVPB 0430,1230,2030 [facility] Lactobacillus Rhamnosus (Culturelle*) 1 cap PO DAILY [facility] Last Admin: 05/15/17 09:16 Dose: 1 cap Lisinopril (Prinivil Tab*) 20 mg PO BID [facility] Pharmacy Profile Note (Coumadin Daily Reminder*) 1 note FOLLOW UP 1700 [facility] Potassium Chloride (Klor Con Er Tab*) 40 meq PO DAILY [facility] Psyllium Hydrophilic Mucilloid (Metamucil Balwinder*) 1 pkt PO DAILY [facility] Last Admin: 05/15/17 09:16 Dose: 1 pkt Spironolactone (Aldactone Tab*) 25 mg PO DAILY [facility] Last Admin: 05/15/17 09:15 Dose: 25 mg Vital Signs - 8 hr 05/16/17 05/16/17 05/16/17 03:23 05:12 07:53 Temperature 102.2 F 100.1 F Pulse Rate 91 84 Respiratory 20 16 Rate Blood Pressure 153/81 137/82 (mmHg) O2 Sat by Pulse 96 95 Oximetry 05/16/17 07:59 Temperature Pulse Rate Respiratory 18 Rate Blood Pressure (mmHg) O2 Sat by Pulse 95 Oximetry Oxygen Devices in Use Now: None Appearance: Thin middle aged male sitting up on the edge of the bed, eating breakfast, NAD Eyes: No Scleral Icterus Ears/Nose/Mouth/Throat: Mucous Membranes Moist Respiratory: Symmetrical Chest Expansion and Respiratory Effort, Clear to Auscultation Cardiovascular: NL Sounds; No Murmurs; No JVD, RRR, No Edema, - - defibrilator pocket non-tender Abdominal: NL Sounds; No Tenderness; No Distention Extremities: No Clubbing, Cyanosis Skin: No Nodules or Sclerosis Neurological: - - alert, slow to respond to questions Result Diagrams: 05/16/17 05:22 05/16/17 05:22 Additional Lab and Data: Lab Results 05/07/17 05/07/17 05/07/17 Range/Units 08:54 08:54 08:54 WBC 8.9 (3.5-10.8) 10^3/ul RBC 3.93 L (4.0-5.4) 10^6/ul Hgb 11.8 L (14.0-18.0) g/dl Hct 37 L (42-52) % MCV 93 (80-94) fL MCH 30 (27-31) pg MCHC 32 (31-36) g/dl RDW 14 (10.5-15) % Plt Count 336 (150-450) 10^3/ul MPV 8 (7.4-10.4) um3 Neut % (Auto) 67.3 (38-83) % Lymph % (Auto) 23.4 L (25-47) % [place] % (Auto) 7.9 (1-9) % Eos % (Auto) 0.2 (0-6) % Baso % (Auto) 1.2 (0-2) % Absolute Neuts (auto) 6.0 (1.5-7.7) 10^3/ul Absolute Lymphs (auto) 2.1 (1.0-4.8) 10^3/ul Absolute Monos (auto) 0.7 (0-0.8) 10^3/ul Absolute Eos (auto) 0 (0-0.6) 10^3/ul Absolute Basos (auto) 0.1 (0-0.2) 10^3/ul Absolute Nucleated RBC 0 10^3/ul Nucleated RBC % 0 INR (Anticoag Therapy) 1.10 H (0.77-1.02) APTT 29.3 (26.0-36.3) seconds ABG pH (7.35-7.45) ABG pCO2 (35-45) mmHg ABG pO2 (80-100) mmHg ABG HCO3 (19-31) mmol/L ABG O2 Saturation (95-98) % ABG Base Excess (-2.0-2.0) Sodium (133-145) mmol/L Potassium Chloride (101-111) mmol/L Carbon Dioxide (22-32) mmol/L Anion Gap (2-11) mmol/L BUN (6-24) mg/dL Creatinine (0.67-1.17) mg/dL Est GFR ( Amer) (>60) Est GFR (Non-Af Amer) (>60) BUN/Creatinine Ratio (8-20) Glucose (70-100) mg/dL Lactic Acid (0.5-2.0) mmol/L Calcium (8.6-10.3) mg/dL Total Bilirubin (0.2-1.0) mg/dL AST ALT (7-52) U/L Alkaline Phosphatase (34-104) U/L Total Creatine Kinase (10-223) U/L CK-MB (CK-2) (0.6-6.3) ng/mL Troponin I (<0.04) ng/mL B-Natriuretic Peptide 1345 H ( - 100) pg/mL Total Protein (6.4-8.9) g/dL Albumin (3.2-5.2) g/dL Globulin (2-4) g/dL Albumin/Globulin Ratio (1-3) LDL Cholesterol Direct mg/dL 05/07/17 05/07/17 05/07/17 Range/Units 08:54 08:54 09:28 WBC (3.5-10.8) 10^3/ul RBC (4.0-5.4) 10^6/ul Hgb (14.0-18.0) g/dl Hct (42-52) % MCV (80-94) fL MCH (27-31) pg MCHC (31-36) g/dl RDW (10.5-15) % Plt Count (150-450) 10^3/ul MPV (7.4-10.4) um3 Neut % (Auto) (38-83) % Lymph % (Auto) (25-47) % Meade % (Auto) (1-9) % Eos % (Auto) (0-6) % Baso % (Auto) (0-2) % Absolute Neuts (auto) (1.5-7.7) 10^3/ul Absolute Lymphs (auto) (1.0-4.8) 10^3/ul Absolute Monos (auto) (0-0.8) 10^3/ul Absolute Eos (auto) (0-0.6) 10^3/ul Absolute Basos (auto) (0-0.2) 10^3/ul Absolute Nucleated RBC 10^3/ul Nucleated RBC % INR (Anticoag Therapy) (0.77-1.02) APTT (26.0-36.3) seconds ABG pH 7.40 (7.35-7.45) ABG pCO2 34 L (35-45) mmHg ABG pO2 114 H (80-100) mmHg ABG HCO3 22.5 (19-31) mmol/L ABG O2 Saturation 100.1 H (95-98) % ABG Base Excess -3.1 L (-2.0-2.0) Sodium 139 (133-145) mmol/L Potassium TNP Chloride 104 (101-111) mmol/L Carbon Dioxide 23 (22-32) mmol/L Anion Gap 12 H (2-11) mmol/L BUN 16 (6-24) mg/dL Creatinine 1.12 (0.67-1.17) mg/dL Est GFR ( Amer) 88.5 (>60) Est GFR (Non-Af Amer) 68.8 (>60) BUN/Creatinine Ratio 14.3 (8-20) Glucose 162 H (70-100) mg/dL Lactic Acid 5.0 H* (0.5-2.0) mmol/L Calcium 9.3 (8.6-10.3) mg/dL Total Bilirubin 0.50 (0.2-1.0) mg/dL AST TNP ALT 50 (7-52) U/L Alkaline Phosphatase 128 H (34-104) U/L Total Creatine Kinase 280 H (10-223) U/L CK-MB (CK-2) 2.9 (0.6-6.3) ng/mL Troponin I 0.47 H* (<0.04) ng/mL B-Natriuretic Peptide ( - 100) pg/mL Total Protein 8.0 (6.4-8.9) g/dL Albumin 3.8 (3.2-5.2) g/dL Globulin 4.2 H (2-4) g/dL Albumin/Globulin Ratio 0.9 L (1-3) LDL Cholesterol Direct 101 mg/dL 05/07/17 05/07/17 Range/Units 09:53 10:15 WBC (3.5-10.8) 10^3/ul RBC (4.0-5.4) 10^6/ul Hgb (14.0-18.0) g/dl Hct (42-52) % MCV (80-94) fL MCH (27-31) pg MCHC (31-36) g/dl RDW (10.5-15) % Plt Count (150-450) 10^3/ul MPV (7.4-10.4) um3 Neut % (Auto) (38-83) % Lymph % (Auto) (25-47) % Meade % (Auto) (1-9) % Eos % (Auto) (0-6) % Baso % (Auto) (0-2) % Absolute Neuts (auto) (1.5-7.7) 10^3/ul Absolute Lymphs (auto) (1.0-4.8) 10^3/ul Absolute Monos (auto) (0-0.8) 10^3/ul Absolute Eos (auto) (0-0.6) 10^3/ul Absolute Basos (auto) (0-0.2) 10^3/ul Absolute Nucleated RBC 10^3/ul Nucleated RBC % INR (Anticoag Therapy) (0.77-1.02) APTT (26.0-36.3) seconds ABG pH (7.35-7.45) ABG pCO2 (35-45) mmHg ABG pO2 (80-100) mmHg ABG HCO3 (19-31) mmol/L ABG O2 Saturation (95-98) % ABG Base Excess (-2.0-2.0) Sodium 137 (133-145) mmol/L Potassium 3.6 3.6 Chloride 106 (101-111) mmol/L Carbon Dioxide 22 (22-32) mmol/L Anion Gap 9 (2-11) mmol/L BUN 16 (6-24) mg/dL Creatinine 0.90 (0.67-1.17) mg/dL Est GFR ( Amer) 114.0 (>60) Est GFR (Non-Af Amer) 88.6 (>60) BUN/Creatinine Ratio 17.8 (8-20) Glucose 136 H (70-100) mg/dL Lactic Acid (0.5-2.0) mmol/L Calcium 8.1 L (8.6-10.3) mg/dL Total Bilirubin (0.2-1.0) mg/dL AST 83 H ALT (7-52) U/L Alkaline Phosphatase (34-104) U/L Total Creatine Kinase (10-223) U/L CK-MB (CK-2) (0.6-6.3) ng/mL Troponin I (<0.04) ng/mL B-Natriuretic Peptide ( - 100) pg/mL Total Protein (6.4-8.9) g/dL Albumin (3.2-5.2) g/dL Globulin (2-4) g/dL Albumin/Globulin Ratio (1-3) LDL Cholesterol Direct mg/dL Microbiology and Other Data: Microbiology 05/09/17 09:35 Aerobic Blood Culture - Final Blood Venous No Growth Day 5 Anaerobic Blood Culture - Final No Growth Day 5 05/11/17 09:20 Gram Stain - Final Sputum Sputum Culture - Final Staphylococcus Aureus 05/08/17 06:05 Nasal Screen MRSA (PCR)(JEEVAN) - Final Nasal Mrsa Not Detected Assess/Plan/Problems-Billing Mr Veras is a 51 yo M who has a h/o TBI who was brought to the ER after he collapsed at work. Bystander CPR was started and when EMS arrived he received 2 defibrillations with ROSC. 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 - Patient Problems (1) RML pneumonia Current Visit: Yes Status: Acute Code(s): J18.1 - LOBAR PNEUMONIA, UNSPECIFIED ORGANISM SNOMED Code(s): 619171267 Comment: The patient has had a borderline fever but spiked to 102.6 overnight. Will start vanco and zosyn. Sputum culture if he produces anything. Check urine, blood cultures. ID consult. 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 Troponins peaked at 0.9. He will be maintained on ASA , lipitor and coreg. ? HI sometime prior to vfib arrest. (3) Ischemic cardiomyopathy Current Visit: Yes Status: Acute Code(s): I25.5 - ISCHEMIC CARDIOMYOPATHY SNOMED Code(s): 735293070 Comment: EF 25-30%. Continue coreg, lisinopril. Will need residential cardiac follow up. (4) LV (left ventricular) mural thrombus following HI Current Visit: Yes Status: Acute Code(s): I21.29 - STEMI INVOLVING OTH SITES ; I23.6 - THOMBOS OF ATRIUM/AURIC APPEND/VENTR CURRENT COMP FOL AMI SNOMED Code(s): 528528130 Comment: On echo 05/11 pt was found to have large LV thrombus. He remains on lovenox bridging to coumadin. (5) Cardiac arrest Current Visit: Yes Status: Acute Code(s): I46.9 - CARDIAC ARREST, CAUSE UNSPECIFIED SNOMED Code(s): 508806041 Comment: s/p defibrillation x2 with ROSC. Now s/p ICD placement 05/14/17. (6) Systolic CHF, acute Current Visit: Yes Status: Acute Code(s): I50.21 - ACUTE SYSTOLIC ( CONGESTIVE) HEART FAILURE SNOMED Code(s): 748914811 Comment: No signs of fluid overload. Continue spironolactone. No lasix at this time. (7) HTN (hypertension) Current Visit: Yes Status: Acute Code(s): I10 - ESSENTIAL (PRIMARY) HYPERTENSION SNOMED Code(s): 09528127 Comment: BP has been difficult to control but now seeming under better control. Dr. Alcazar has increased the lisinopril to 20mg BID. Will continue amlodipine, coreg, lisinopril and spironolactone. Will make adjustments as needed. (8) DVT prophylaxis Current Visit: Yes Status: Acute Code(s): ZNZ2391 - SNOMED Code(s): 876843443 Comment: milagros (9) Full code status Current Visit: Yes Status: Acute Code(s): Z78.9 - OTHER SPECIFIED HEALTH STATUS SNOMED Code(s): 276349107
[2017-05-16] MEDS: Enoxaparin(*) 80 MG/0.8 ML SYR SUBCUT SCH ×2 (08:48→21:01)
[2017-05-16] MEDS: Spironolactone TAB* 25 MG PO SCH (08:49)
[2017-05-16] MEDS: amLODIPine TAB* 5 MG PO SCH (08:49)
[2017-05-16] MEDS: Aspirin Low Dose CHEW TAB* 81 MG PO SCH (08:49)
[2017-05-16] MEDS: Carvedilol TAB* 25 MG PO SCH ×2 (08:49→21:01)
[2017-05-16] MEDS: Famotidine TAB* 20 MG PO SCH (08:50)
[2017-05-16] MEDS: Lactobacillus Acidophilu (GG)* 1 CAP CAP PO SCH (08:50)
[2017-05-16] MEDS: Lisinopril TAB* 10 MG PO SCH ×2 (08:50→21:00)
[2017-05-16] MEDS: Potassium Chlor TAB* 20 MEQ TAB.ER PO SCH (08:51)
[2017-05-16] MEDS: Psyllium PAK PO SCH (09:00)
[2017-05-16] MEDS: Piperacillin/Tazobac ADVAN(*) 3.375 GM in NS 0.9% 100 ML* 100 ML IVPB SCH ×2 (12:57→21:00)
[2017-05-16] MEDS ORDERED: Vancomycin per Pharmacy* NOTE FOLLOW UP PRN (13:42)
[2017-05-16 15:14] LABS: Urine Appearance Clear; Urine Blood Negative (Negative); Urine Color Yellow; Urine Ketones Negative (Negative); Urine Protein Negative (Negative); Urine Specific Gravity 1.014 (1.010-1.030); Urine Urobilinogen Negative (Negative)
[2017-05-16 16:45] LABS: INR 1.44 (0.77-1.02)
[2017-05-16] MEDS ORDERED: Warfarin TAB(*) 2.5 MG PO ONE (17:00)
[2017-05-16] MEDS: Vancomycin(*) 1,250 MG in NS 0.9% 250 ML* 250 ML IVPB SCH (17:05)
[2017-05-16] MEDS: Atorvastatin* 80 MG TAB PO SCH (17:05)
[2017-05-17] MEDS: Vancomycin(*) 1,250 MG in NS 0.9% 250 ML* 250 ML IVPB SCH ×3 (01:23→18:22)
[2017-05-17] MEDS: Piperacillin/Tazobac ADVAN(*) 3.375 GM in NS 0.9% 100 ML* 100 ML IVPB SCH ×3 (04:11→21:40)
[2017-05-17 06:11] LABS: Hematocrit 26 % (42-52); Hemoglobin 8.5 g/dl (14.0-18.0); Mean Corpuscular HGB Conc 33 g/dl (31-36); Mean Corpuscular Hemoglobin 30 pg (27-31); Mean Corpuscular Volume 90 fL (80-94); Mean Platelet Volume 9 um3 (7.4-10.4); Platelet Count 277 10^3/ul (150-450); Red Blood Count 2.84 10^6/ul (4.0-5.4); Red Cell Distribution Width 14 % (10.5-15); White Blood Count 12.8 10^3/ul (3.5-10.8)
[2017-05-17 06:17] LABS: INR 1.6 (0.77-1.02)
[2017-05-17 06:24] LABS: EGFR Non-African American 86.4 (>60)
[2017-05-17 06:50] LABS: Vancomycin Trough 24.4 mcg/mL
[2017-05-17] MEDS ORDERED: Vancomycin Trough Check NOTE FOLLOW UP ONE (08:30)
[2017-05-17] MEDS: Spironolactone TAB* 25 MG PO SCH (09:18)
[2017-05-17] MEDS: Famotidine TAB* 20 MG PO SCH (09:18)
[2017-05-17] MEDS: Enoxaparin(*) 80 MG/0.8 ML SYR SUBCUT SCH (09:18)
[2017-05-17] MEDS: Lisinopril TAB* 10 MG PO SCH ×2 (09:18→21:40)
[2017-05-17] MEDS: Carvedilol TAB* 25 MG PO SCH ×2 (09:18→21:40)
[2017-05-17] MEDS: Lactobacillus Acidophilu (GG)* 1 CAP CAP PO SCH (09:18)
[2017-05-17] MEDS: Potassium Chlor TAB* 20 MEQ TAB.ER PO SCH (09:19)
[2017-05-17] MEDS: Aspirin Low Dose CHEW TAB* 81 MG PO SCH (09:19)
[2017-05-17] MEDS: amLODIPine TAB* 5 MG PO SCH (09:19)
[2017-05-17] MEDS: Psyllium PAK PO SCH (09:21)
[2017-05-17 15:10] LABS: INR 1.77 (0.77-1.02)
--- NOTE | 2017-05-17 16:25 | PN ---
Subjective Date of Service: 05/17/17 Interval History: no overnight events. has been walking the hallway without shortness of breath, palpitations, nausea, vomiting. he has no complaints and is anxious to get home. Family History: Unchanged from Admission Social History: Unchanged from Admission Past Medical History: Unchanged from Admission Objective Active Medications: Acetaminophen (Tylenol Tab*) 650 mg PO Q4H PRN PRN Reason: PAIN AND/OR FEVER Last Admin: 05/16/17 03:31 Dose: 650 mg Amlodipine Besylate (Norvasc Tab*) 10 mg PO DAILY [facility] Last Admin: 05/17/17 09:19 Dose: 10 mg Aspirin (Aspirin Low Dose Tab*) 81 mg PO DAILY [facility] Last Admin: 05/17/17 09:19 Dose: 81 mg Atorvastatin Calcium (Lipitor*) 80 mg PO 1700 [facility] Last Admin: 05/16/17 17:05 Dose: 80 mg Carvedilol (Coreg Tab*) 25 mg PO BID [facility] Last Admin: 05/17/17 09:18 Dose: 25 mg Famotidine (Pepcid Tab*) 20 mg PO DAILY [facility] Last Admin: 05/17/17 09:18 Dose: 20 mg Piperacillin Sod/Tazobactam (Sod 3.375 gm/ Sodium Chloride) 100 mls @ 25 mls/ hr IVPB 0430,1230,2030 [facility] Last Admin: 05/17/17 13:07 Dose: 25 mls/hr Vancomycin HCl 1,250 mg/ (Sodium Chloride) 250 mls @ 166.667 mls/hr IVPB Q8H [facility] Last Admin: 05/17/17 10:51 Dose: 166.667 mls/hr Isosorbide Mononitrate (Imdur Er Tab*) 30 mg PO 1700 [facility] Lactobacillus Rhamnosus (Culturelle*) 1 cap PO DAILY [facility] Last Admin: 05/17/17 09:18 Dose: 1 cap Lisinopril (Prinivil Tab*) 20 mg PO BID [facility] Last Admin: 05/17/17 09:18 Dose: 20 mg Pharmacy Consult (Vancomycin Per Pharmacy*) 1 note FOLLOW UP . PRN PRN Reason: PER PROTOCOL Pharmacy Profile Note (Coumadin Daily Reminder*) 1 note FOLLOW UP 1700 [facility] Last Admin: 05/16/17 17:05 Dose: 1 note Potassium Chloride (Klor Con Er Tab*) 40 meq PO DAILY [facility] Last Admin: 05/17/17 09:19 Dose: 40 meq Psyllium Hydrophilic Mucilloid (Metamucil Balwinder*) 1 pkt PO DAILY [facility] Last Admin: 05/17/17 09:21 Dose: 1 pkt Spironolactone (Aldactone Tab*) 25 mg PO DAILY [facility] Last Admin: 05/17/17 09:18 Dose: 25 mg Vital Signs - 8 hr 05/17/17 05/17/17 11:49 15:17 Temperature 99.0 F 99.3 F Pulse Rate 70 74 Respiratory 16 20 Rate Blood Pressure 108/65 118/74 (mmHg) O2 Sat by Pulse 99 96 Oximetry Oxygen Devices in Use Now: None Appearance: alert, no distress Eyes: No Scleral Icterus Ears/Nose/Mouth/Throat: NL Teeth, Lips, Gums Neck: NL Appearance and Movements; NL JVP Respiratory: Symmetrical Chest Expansion and Respiratory Effort, Clear to Auscultation Cardiovascular: NL Sounds; No Murmurs; No JVD, RRR, - - left icd pacer pocket with a nontender hematoma; no warmth or erythema. radial pulses 2+ b/l Abdominal: NL Sounds; No Tenderness; No Distention Lymphatic: No Cervical Adenopathy Extremities: No Edema Skin: No Rash or Ulcers Neurological: Alert and Oriented x 3 Result Diagrams: 05/17/17 05:37 05/17/17 05:38 Additional Lab and Data: Lab Results 05/07/17 05/07/17 05/07/17 Range/Units 08:54 08:54 08:54 WBC 8.9 (3.5-10.8) 10^3/ul RBC 3.93 L (4.0-5.4) 10^6/ul Hgb 11.8 L (14.0-18.0) g/dl Hct 37 L (42-52) % MCV 93 (80-94) fL MCH 30 (27-31) pg MCHC 32 (31-36) g/dl RDW 14 (10.5-15) % Plt Count 336 (150-450) 10^3/ul MPV 8 (7.4-10.4) um3 Neut % (Auto) 67.3 (38-83) % Lymph % (Auto) 23.4 L (25-47) % [place] % (Auto) 7.9 (1-9) % Eos % (Auto) 0.2 (0-6) % Baso % (Auto) 1.2 (0-2) % Absolute Neuts (auto) 6.0 (1.5-7.7) 10^3/ul Absolute Lymphs (auto) 2.1 (1.0-4.8) 10^3/ul Absolute Monos (auto) 0.7 (0-0.8) 10^3/ul Absolute Eos (auto) 0 (0-0.6) 10^3/ul Absolute Basos (auto) 0.1 (0-0.2) 10^3/ul Absolute Nucleated RBC 0 10^3/ul Nucleated RBC % 0 INR (Anticoag Therapy) 1.10 H (0.77-1.02) APTT 29.3 (26.0-36.3) seconds ABG pH (7.35-7.45) ABG pCO2 (35-45) mmHg ABG pO2 (80-100) mmHg ABG HCO3 (19-31) mmol/L ABG O2 Saturation (95-98) % ABG Base Excess (-2.0-2.0) Sodium (133-145) mmol/L Potassium Chloride (101-111) mmol/L Carbon Dioxide (22-32) mmol/L Anion Gap (2-11) mmol/L BUN (6-24) mg/dL Creatinine (0.67-1.17) mg/dL Est GFR ( Amer) (>60) Est GFR (Non-Af Amer) (>60) BUN/Creatinine Ratio (8-20) Glucose (70-100) mg/dL Lactic Acid (0.5-2.0) mmol/L Calcium (8.6-10.3) mg/dL Total Bilirubin (0.2-1.0) mg/dL AST ALT (7-52) U/L Alkaline Phosphatase (34-104) U/L Total Creatine Kinase (10-223) U/L CK-MB (CK-2) (0.6-6.3) ng/mL Troponin I (<0.04) ng/mL B-Natriuretic Peptide 1345 H ( - 100) pg/mL Total Protein (6.4-8.9) g/dL Albumin (3.2-5.2) g/dL Globulin (2-4) g/dL Albumin/Globulin Ratio (1-3) LDL Cholesterol Direct mg/dL 05/07/17 05/07/17 05/07/17 Range/Units 08:54 08:54 09:28 WBC (3.5-10.8) 10^3/ul RBC (4.0-5.4) 10^6/ul Hgb (14.0-18.0) g/dl Hct (42-52) % MCV (80-94) fL MCH (27-31) pg MCHC (31-36) g/dl RDW (10.5-15) % Plt Count (150-450) 10^3/ul MPV (7.4-10.4) um3 Neut % (Auto) (38-83) % Lymph % (Auto) (25-47) % [place] % (Auto) (1-9) % Eos % (Auto) (0-6) % Baso % (Auto) (0-2) % Absolute Neuts (auto) (1.5-7.7) 10^3/ul Absolute Lymphs (auto) (1.0-4.8) 10^3/ul Absolute Monos (auto) (0-0.8) 10^3/ul Absolute Eos (auto) (0-0.6) 10^3/ul Absolute Basos (auto) (0-0.2) 10^3/ul Absolute Nucleated RBC 10^3/ul Nucleated RBC % INR (Anticoag Therapy) (0.77-1.02) APTT (26.0-36.3) seconds ABG pH 7.40 (7.35-7.45) ABG pCO2 34 L (35-45) mmHg ABG pO2 114 H (80-100) mmHg ABG HCO3 22.5 (19-31) mmol/L ABG O2 Saturation 100.1 H (95-98) % ABG Base Excess -3.1 L (-2.0-2.0) Sodium 139 (133-145) mmol/L Potassium TNP Chloride 104 (101-111) mmol/L Carbon Dioxide 23 (22-32) mmol/L Anion Gap 12 H (2-11) mmol/L BUN 16 (6-24) mg/dL Creatinine 1.12 (0.67-1.17) mg/dL Est GFR ( Amer) 88.5 (>60) Est GFR (Non-Af Amer) 68.8 (>60) BUN/Creatinine Ratio 14.3 (8-20) Glucose 162 H (70-100) mg/dL Lactic Acid 5.0 H* (0.5-2.0) mmol/L Calcium 9.3 (8.6-10.3) mg/dL Total Bilirubin 0.50 (0.2-1.0) mg/dL AST TNP ALT 50 (7-52) U/L Alkaline Phosphatase 128 H (34-104) U/L Total Creatine Kinase 280 H (10-223) U/L CK-MB (CK-2) 2.9 (0.6-6.3) ng/mL Troponin I 0.47 H* (<0.04) ng/mL B-Natriuretic Peptide ( - 100) pg/mL Total Protein 8.0 (6.4-8.9) g/dL Albumin 3.8 (3.2-5.2) g/dL Globulin 4.2 H (2-4) g/dL Albumin/Globulin Ratio 0.9 L (1-3) LDL Cholesterol Direct 101 mg/dL 05/07/17 05/07/17 Range/Units 09:53 10:15 WBC (3.5-10.8) 10^3/ul RBC (4.0-5.4) 10^6/ul Hgb (14.0-18.0) g/dl Hct (42-52) % MCV (80-94) fL MCH (27-31) pg MCHC (31-36) g/dl RDW (10.5-15) % Plt Count (150-450) 10^3/ul MPV (7.4-10.4) um3 Neut % (Auto) (38-83) % Lymph % (Auto) (25-47) % [place] % (Auto) (1-9) % Eos % (Auto) (0-6) % Baso % (Auto) (0-2) % Absolute Neuts (auto) (1.5-7.7) 10^3/ul Absolute Lymphs (auto) (1.0-4.8) 10^3/ul Absolute Monos (auto) (0-0.8) 10^3/ul Absolute Eos (auto) (0-0.6) 10^3/ul Absolute Basos (auto) (0-0.2) 10^3/ul Absolute Nucleated RBC 10^3/ul Nucleated RBC % INR (Anticoag Therapy) (0.77-1.02) APTT (26.0-36.3) seconds ABG pH (7.35-7.45) ABG pCO2 (35-45) mmHg ABG pO2 (80-100) mmHg ABG HCO3 (19-31) mmol/L ABG O2 Saturation (95-98) % ABG Base Excess (-2.0-2.0) Sodium 137 (133-145) mmol/L Potassium 3.6 3.6 Chloride 106 (101-111) mmol/L Carbon Dioxide 22 (22-32) mmol/L Anion Gap 9 (2-11) mmol/L BUN 16 (6-24) mg/dL Creatinine 0.90 (0.67-1.17) mg/dL Est GFR ( Amer) 114.0 (>60) Est GFR (Non-Af Amer) 88.6 (>60) BUN/Creatinine Ratio 17.8 (8-20) Glucose 136 H (70-100) mg/dL Lactic Acid (0.5-2.0) mmol/L Calcium 8.1 L (8.6-10.3) mg/dL Total Bilirubin (0.2-1.0) mg/dL AST 83 H ALT (7-52) U/L Alkaline Phosphatase (34-104) U/L Total Creatine Kinase (10-223) U/L CK-MB (CK-2) (0.6-6.3) ng/mL Troponin I (<0.04) ng/mL B-Natriuretic Peptide ( - 100) pg/mL Total Protein (6.4-8.9) g/dL Albumin (3.2-5.2) g/dL Globulin (2-4) g/dL Albumin/Globulin Ratio (1-3) LDL Cholesterol Direct mg/dL Microbiology and Other Data: Microbiology 05/09/17 09:35 Aerobic Blood Culture - Final Blood Venous No Growth Day 5 Anaerobic Blood Culture - Final No Growth Day 5 05/11/17 09:20 Gram Stain - Final Sputum Sputum Culture - Final Staphylococcus Aureus 05/08/17 06:05 Nasal Screen MRSA (PCR)(JEEVAN) - Final Nasal Mrsa Not Detected Assess/Plan/Problems-Billing Mr Veras is a 51 yo M who has a h/o TBI who was brought to the ER after he collapsed at work. Bystander CPR was started and when EMS arrived he received 2 defibrillations with ROSC. 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 - Patient Problems (1) CAD (coronary artery disease), [place] coronary artery Current Visit: Yes Status: Acute Code(s): I25.10 - ATHSCL HEART DISEASE OF [place] CORONARY ARTERY W/O ANG PCTRS SNOMED Code(s): 0326930137959 Comment: The patient was found to have a totally occluded LAD that is believed to have chronic total occlusion with collaterals. No wire was able to be passed. Troponins peaked at 0.9. He will be maintained on ASA, lipitor, and coreg. (2) Cardiac arrest Current Visit: Yes Status: Acute Code(s): I46.9 - CARDIAC ARREST, CAUSE UNSPECIFIED SNOMED Code(s): 741964306 Comment: Vfib arrest, s/p defibrillation x2 with ROSC; underwent cooling protocol in ICU. Now s/p ICD placement 05/14/17 for secondary prevention. (3) Ischemic cardiomyopathy Current Visit: Yes Status: Acute Code(s): I25.5 - ISCHEMIC CARDIOMYOPATHY SNOMED Code(s): 323466197 Comment: EF 25-30%. Continue coreg, lisinopril. ICD in place, euvolemic will arrange cardiology follow up at discharge (4) LV (left ventricular) mural thrombus following [place] Current Visit: Yes Status: Acute Code(s): I21.29 - STEMI INVOLVING OTH SITES ; I23.6 - THOMBOS OF ATRIUM/AURIC APPEND/VENTR CURRENT COMP FOL AMI SNOMED Code(s): 035620847 Comment: On echo 05/11 pt was found to have large LV thrombus. Has been on lovenox/coumadin bridge. Risks/benefits in setting of pocket hematoma were discussed with cardiology, who recommended continuing warfarin but allowing INR to rise slowly, and discontinuing lovenox. (5) RML pneumonia Current Visit: Yes Status: Acute Code(s): J18.1 - LOBAR PNEUMONIA, UNSPECIFIED ORGANISM SNOMED Code(s): 405929907 Comment: Likely aspiration during arrest Continue vanc/zosyn given recent ICD placement. Sputum growing staph aureus, blood cultures negative (6) Pacemaker pocket hematoma Current Visit: Yes Status: Acute Code(s): T82.837A - HEMORRHAGE DUE TO CARDIAC PROSTH DEV/GRFT, INITIAL ENCOUNTER SNOMED Code(s): 791502115 Comment: plan as above--hold lovenox, continue warfarin and monitor closely
[2017-05-17] MEDS ORDERED: Warfarin TAB(*) 2.5 MG PO ONE (18:00)
[2017-05-17] MEDS: Isosorbide Mononitrate ER TAB* 30 MG PO SCH (18:22)
[2017-05-17] MEDS: Atorvastatin* 80 MG TAB PO SCH (18:22)
[2017-05-18] MEDS: Vancomycin(*) 1,250 MG in NS 0.9% 250 ML* 250 ML IVPB SCH ×3 (03:24→18:07)
[2017-05-18] MEDS: Piperacillin/Tazobac ADVAN(*) 3.375 GM in NS 0.9% 100 ML* 100 ML IVPB SCH ×3 (05:21→20:57)
[2017-05-18 05:32] LABS: Hematocrit 23 % (42-52); Hemoglobin 7.8 g/dl (14.0-18.0); Mean Corpuscular HGB Conc 33 g/dl (31-36); Mean Corpuscular Hemoglobin 30 pg (27-31); Mean Corpuscular Volume 90 fL (80-94); Mean Platelet Volume 9 um3 (7.4-10.4); Platelet Count 332 10^3/ul (150-450); Red Cell Distribution Width 14 % (10.5-15); White Blood Count 9.9 10^3/ul (3.5-10.8)
[2017-05-18 05:45] LABS: EGFR Non-African American 85.3 (>60)
[2017-05-18 05:47] LABS: INR 1.56 (0.77-1.02)
[2017-05-18] MEDS: Lactobacillus Acidophilu (GG)* 1 CAP CAP PO SCH (07:54)
[2017-05-18] MEDS: amLODIPine TAB* 5 MG PO SCH (07:54)
[2017-05-18] MEDS: Famotidine TAB* 20 MG PO SCH (07:54)
[2017-05-18] MEDS: Lisinopril TAB* 10 MG PO SCH ×2 (07:54→20:59)
[2017-05-18] MEDS: Carvedilol TAB* 25 MG PO SCH ×2 (07:54→20:58)
[2017-05-18] MEDS: Aspirin Low Dose CHEW TAB* 81 MG PO SCH (07:54)
[2017-05-18] MEDS: Potassium Chlor TAB* 20 MEQ TAB.ER PO SCH (07:55)
[2017-05-18] MEDS: Psyllium PAK PO SCH (07:55)
[2017-05-18] MEDS: Spironolactone TAB* 25 MG PO SCH (07:55)
--- NOTE | 2017-05-18 07:59 | PN ---
Subjective Date of Service: 05/18/17 Interval History: No overnight events. He feels good today, no complaints. He thinks the hematoma is about the same this morning. He has no pain at the pocket site. No numbness or tingling. Walking the hallways without chest pain, shortness of breath, palpitations. Family History: Unchanged from Admission Social History: Unchanged from Admission Past Medical History: Unchanged from Admission Objective Active Medications: Acetaminophen (Tylenol Tab*) 650 mg PO Q4H PRN PRN Reason: PAIN AND/OR FEVER Last Admin: 05/16/17 03:31 Dose: 650 mg Amlodipine Besylate (Norvasc Tab*) 10 mg PO DAILY [facility] Last Admin: 05/17/17 09:19 Dose: 10 mg Aspirin (Aspirin Low Dose Tab*) 81 mg PO DAILY [facility] Last Admin: 05/17/17 09:19 Dose: 81 mg Atorvastatin Calcium (Lipitor*) 80 mg PO 1700 [facility] Last Admin: 05/17/17 18:22 Dose: 80 mg Carvedilol (Coreg Tab*) 25 mg PO BID [facility] Last Admin: 05/17/17 21:40 Dose: 25 mg Famotidine (Pepcid Tab*) 20 mg PO DAILY [facility] Last Admin: 05/17/17 09:18 Dose: 20 mg Vancomycin HCl 1,250 mg/ (Sodium Chloride) 250 mls @ 166.667 mls/hr IVPB Q8H [facility] Last Admin: 05/18/17 03:24 Dose: 166.667 mls/hr Piperacillin Sod/Tazobactam (Sod 3.375 gm/ Sodium Chloride) 100 mls @ 25 mls/ hr IVPB 0500,1300,2100 [facility] Last Admin: 05/18/17 05:21 Dose: 25 mls/hr Isosorbide Mononitrate (Imdur Er Tab*) 30 mg PO 1700 [facility] Last Admin: 05/17/17 18:22 Dose: 30 mg Lactobacillus Rhamnosus (Culturelle*) 1 cap PO DAILY [facility] Last Admin: 05/17/17 09:18 Dose: 1 cap Lisinopril (Prinivil Tab*) 20 mg PO BID [facility] Last Admin: 05/17/17 21:40 Dose: 20 mg Pharmacy Consult (Vancomycin Per Pharmacy*) 1 note FOLLOW UP . PRN PRN Reason: PER PROTOCOL Pharmacy Profile Note (Coumadin Daily Reminder*) 1 note FOLLOW UP 1700 [facility] Last Admin: 05/17/17 18:22 Dose: 1 note Potassium Chloride (Klor Con Er Tab*) 40 meq PO DAILY [facility] Last Admin: 05/17/17 09:19 Dose: 40 meq Psyllium Hydrophilic Mucilloid (Metamucil Balwinder*) 1 pkt PO DAILY [facility] Last Admin: 05/17/17 09:21 Dose: 1 pkt Spironolactone (Aldactone Tab*) 25 mg PO DAILY [facility] Last Admin: 05/17/17 09:18 Dose: 25 mg Vital Signs - 8 hr 05/18/17 05/18/17 05/18/17 00:00 00:11 03:55 Temperature 100.5 F 99.8 F Pulse Rate 81 79 Respiratory 16 22 Rate Blood Pressure 132/79 137/81 (mmHg) O2 Sat by Pulse 96 96 95 Oximetry 05/18/17 07:38 Temperature 99.7 F Pulse Rate 83 Respiratory 20 Rate Blood Pressure 135/83 (mmHg) O2 Sat by Pulse 95 Oximetry Oxygen Devices in Use Now: None Appearance: alert, no distress, well appearing Eyes: No Scleral Icterus, PERRLA Ears/Nose/Mouth/Throat: NL Teeth, Lips, Gums Neck: NL Appearance and Movements; NL JVP Cardiovascular: RRR, - - +S4; systolic murmur at LUSB. left chest wall incision stapled, no erythema, drainage. hematoma ~4cm diameter. radial pulses 2+ b/l Abdominal: NL Sounds; No Tenderness; No Distention Lymphatic: No Cervical Adenopathy Extremities: No Edema, - Skin: No Rash or Ulcers Neurological: Alert and Oriented x 3 Result Diagrams: 05/18/17 05:05 05/18/17 05:05 Additional Lab and Data: Lab Results 05/07/17 05/07/17 05/07/17 Range/Units 08:54 08:54 08:54 WBC 8.9 (3.5-10.8) 10^3/ul RBC 3.93 L (4.0-5.4) 10^6/ul Hgb 11.8 L (14.0-18.0) g/dl Hct 37 L (42-52) % MCV 93 (80-94) fL MCH 30 (27-31) pg MCHC 32 (31-36) g/dl RDW 14 (10.5-15) % Plt Count 336 (150-450) 10^3/ul MPV 8 (7.4-10.4) um3 Neut % (Auto) 67.3 (38-83) % Lymph % (Auto) 23.4 L (25-47) % [place] % (Auto) 7.9 (1-9) % Eos % (Auto) 0.2 (0-6) % Baso % (Auto) 1.2 (0-2) % Absolute Neuts (auto) 6.0 (1.5-7.7) 10^3/ul Absolute Lymphs (auto) 2.1 (1.0-4.8) 10^3/ul Absolute Monos (auto) 0.7 (0-0.8) 10^3/ul Absolute Eos (auto) 0 (0-0.6) 10^3/ul Absolute Basos (auto) 0.1 (0-0.2) 10^3/ul Absolute Nucleated RBC 0 10^3/ul Nucleated RBC % 0 INR (Anticoag Therapy) 1.10 H (0.77-1.02) APTT 29.3 (26.0-36.3) seconds ABG pH (7.35-7.45) ABG pCO2 (35-45) mmHg ABG pO2 (80-100) mmHg ABG HCO3 (19-31) mmol/L ABG O2 Saturation (95-98) % ABG Base Excess (-2.0-2.0) Sodium (133-145) mmol/L Potassium Chloride (101-111) mmol/L Carbon Dioxide (22-32) mmol/L Anion Gap (2-11) mmol/L BUN (6-24) mg/dL Creatinine (0.67-1.17) mg/dL Est GFR ( Amer) (>60) Est GFR (Non-Af Amer) (>60) BUN/Creatinine Ratio (8-20) Glucose (70-100) mg/dL Lactic Acid (0.5-2.0) mmol/L Calcium (8.6-10.3) mg/dL Total Bilirubin (0.2-1.0) mg/dL AST ALT (7-52) U/L Alkaline Phosphatase (34-104) U/L Total Creatine Kinase (10-223) U/L CK-MB (CK-2) (0.6-6.3) ng/mL Troponin I (<0.04) ng/mL B-Natriuretic Peptide 1345 H ( - 100) pg/mL Total Protein (6.4-8.9) g/dL Albumin (3.2-5.2) g/dL Globulin (2-4) g/dL Albumin/Globulin Ratio (1-3) LDL Cholesterol Direct mg/dL 05/07/17 05/07/17 05/07/17 Range/Units 08:54 08:54 09:28 WBC (3.5-10.8) 10^3/ul RBC (4.0-5.4) 10^6/ul Hgb (14.0-18.0) g/dl Hct (42-52) % MCV (80-94) fL MCH (27-31) pg MCHC (31-36) g/dl RDW (10.5-15) % Plt Count (150-450) 10^3/ul MPV (7.4-10.4) um3 Neut % (Auto) (38-83) % Lymph % (Auto) (25-47) % [place] % (Auto) (1-9) % Eos % (Auto) (0-6) % Baso % (Auto) (0-2) % Absolute Neuts (auto) (1.5-7.7) 10^3/ul Absolute Lymphs (auto) (1.0-4.8) 10^3/ul Absolute Monos (auto) (0-0.8) 10^3/ul Absolute Eos (auto) (0-0.6) 10^3/ul Absolute Basos (auto) (0-0.2) 10^3/ul Absolute Nucleated RBC 10^3/ul Nucleated RBC % INR (Anticoag Therapy) (0.77-1.02) APTT (26.0-36.3) seconds ABG pH 7.40 (7.35-7.45) ABG pCO2 34 L (35-45) mmHg ABG pO2 114 H (80-100) mmHg ABG HCO3 22.5 (19-31) mmol/L ABG O2 Saturation 100.1 H (95-98) % ABG Base Excess -3.1 L (-2.0-2.0) Sodium 139 (133-145) mmol/L Potassium TNP Chloride 104 (101-111) mmol/L Carbon Dioxide 23 (22-32) mmol/L Anion Gap 12 H (2-11) mmol/L BUN 16 (6-24) mg/dL Creatinine 1.12 (0.67-1.17) mg/dL Est GFR ( Amer) 88.5 (>60) Est GFR (Non-Af Amer) 68.8 (>60) BUN/Creatinine Ratio 14.3 (8-20) Glucose 162 H (70-100) mg/dL Lactic Acid 5.0 H* (0.5-2.0) mmol/L Calcium 9.3 (8.6-10.3) mg/dL Total Bilirubin 0.50 (0.2-1.0) mg/dL AST TNP ALT 50 (7-52) U/L Alkaline Phosphatase 128 H (34-104) U/L Total Creatine Kinase 280 H (10-223) U/L CK-MB (CK-2) 2.9 (0.6-6.3) ng/mL Troponin I 0.47 H* (<0.04) ng/mL B-Natriuretic Peptide ( - 100) pg/mL Total Protein 8.0 (6.4-8.9) g/dL Albumin 3.8 (3.2-5.2) g/dL Globulin 4.2 H (2-4) g/dL Albumin/Globulin Ratio 0.9 L (1-3) LDL Cholesterol Direct 101 mg/dL 05/07/17 05/07/17 Range/Units 09:53 10:15 WBC (3.5-10.8) 10^3/ul RBC (4.0-5.4) 10^6/ul Hgb (14.0-18.0) g/dl Hct (42-52) % MCV (80-94) fL MCH (27-31) pg MCHC (31-36) g/dl RDW (10.5-15) % Plt Count (150-450) 10^3/ul MPV (7.4-10.4) um3 Neut % (Auto) (38-83) % Lymph % (Auto) (25-47) % [place] % (Auto) (1-9) % Eos % (Auto) (0-6) % Baso % (Auto) (0-2) % Absolute Neuts (auto) (1.5-7.7) 10^3/ul Absolute Lymphs (auto) (1.0-4.8) 10^3/ul Absolute Monos (auto) (0-0.8) 10^3/ul Absolute Eos (auto) (0-0.6) 10^3/ul Absolute Basos (auto) (0-0.2) 10^3/ul Absolute Nucleated RBC 10^3/ul Nucleated RBC % INR (Anticoag Therapy) (0.77-1.02) APTT (26.0-36.3) seconds ABG pH (7.35-7.45) ABG pCO2 (35-45) mmHg ABG pO2 (80-100) mmHg ABG HCO3 (19-31) mmol/L ABG O2 Saturation (95-98) % ABG Base Excess (-2.0-2.0) Sodium 137 (133-145) mmol/L Potassium 3.6 3.6 Chloride 106 (101-111) mmol/L Carbon Dioxide 22 (22-32) mmol/L Anion Gap 9 (2-11) mmol/L BUN 16 (6-24) mg/dL Creatinine 0.90 (0.67-1.17) mg/dL Est GFR ( Amer) 114.0 (>60) Est GFR (Non-Af Amer) 88.6 (>60) BUN/Creatinine Ratio 17.8 (8-20) Glucose 136 H (70-100) mg/dL Lactic Acid (0.5-2.0) mmol/L Calcium 8.1 L (8.6-10.3) mg/dL Total Bilirubin (0.2-1.0) mg/dL AST 83 H ALT (7-52) U/L Alkaline Phosphatase (34-104) U/L Total Creatine Kinase (10-223) U/L CK-MB (CK-2) (0.6-6.3) ng/mL Troponin I (<0.04) ng/mL B-Natriuretic Peptide ( - 100) pg/mL Total Protein (6.4-8.9) g/dL Albumin (3.2-5.2) g/dL Globulin (2-4) g/dL Albumin/Globulin Ratio (1-3) LDL Cholesterol Direct mg/dL Microbiology and Other Data: Microbiology 05/09/17 09:35 Aerobic Blood Culture - Final Blood Venous No Growth Day 5 Anaerobic Blood Culture - Final No Growth Day 5 05/11/17 09:20 Gram Stain - Final Sputum Sputum Culture - Final Staphylococcus Aureus 05/08/17 06:05 Nasal Screen MRSA (PCR)(JEEVAN) - Final Nasal Mrsa Not Detected Assess/Plan/Problems-Billing Mr Veras is a 51 yo M who has a h/o TBI who was brought to the ER after he collapsed at work. Bystander CPR was started and when EMS arrived he received 2 defibrillations with ROSC. 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 - Patient Problems (1) LV (left ventricular) mural thrombus following [place] Current Visit: Yes Status: Acute Code(s): I21.29 - STEMI INVOLVING OTH SITES ; I23.6 - THOMBOS OF ATRIUM/AURIC APPEND/VENTR CURRENT COMP FOL AMI SNOMED Code(s): 415255307 Comment: On echo 05/11 pt was found to have large LV thrombus. Was initially on lovenox/coumadin bridge, however after discussing risks/ benefits in setting of pocket hematoma with cardiology, the lovenox was discontinued yesterday, and warfarin was continued. This was discussed at length today with Mr. Veras. I explained the dangers of having a subtherapeutic INR at this time, but that we must weigh the risks of ongoing bleeding with the risk of stroke, especially with a declining hgb. Will discuss again with cardiology and continue to plan to allow his INR to rise slowly without a lovenox bridge. (2) Pacemaker pocket hematoma Current Visit: Yes Status: Acute Code(s): T82.837A - HEMORRHAGE DUE TO CARDIAC PROSTH DEV/GRFT, INITIAL ENCOUNTER SNOMED Code(s): 014304997 Comment: plan as above--hold lovenox, continue warfarin and monitor closely (3) CAD (coronary artery disease), [place] coronary artery Current Visit: Yes Status: Acute Code(s): I25.10 - ATHSCL HEART DISEASE OF [place] CORONARY ARTERY W/O ANG PCTRS SNOMED Code(s): 7673185789832 Comment: The patient was found to have an occluded LAD that is believed to have chronic total occlusion with collaterals. No wire was able to be passed. Troponins peaked at 0.9, which was more likely from the arrest than an AR at the time of presentation. He will be maintained on ASA, lipitor, and coreg. (4) Ischemic cardiomyopathy Current Visit: Yes Status: Acute Code(s): I25.5 - ISCHEMIC CARDIOMYOPATHY SNOMED Code(s): 521376168 Comment: EF 25-30%. Continue coreg, lisinopril. ICD in place, euvolemic with an S4 on exam will arrange cardiology follow up at discharge (5) Cardiac arrest Current Visit: Yes Status: Acute Code(s): I46.9 - CARDIAC ARREST, CAUSE UNSPECIFIED SNOMED Code(s): 283433931 Comment: Vfib arrest, s/p defibrillation x2 with ROSC; underwent cooling protocol in ICU. Now s/p ICD placement 05/14/17 for secondary prevention. (6) RML pneumonia Current Visit: Yes Status: Acute Code(s): J18.1 - LOBAR PNEUMONIA, UNSPECIFIED ORGANISM SNOMED Code(s): 291422057 Comment: Likely aspiration during arrest Continue vanc/zosyn given recent ICD placement. Sputum growing staph aureus, blood cultures negative (7) Anemia Current Visit: Yes Status: Acute Code(s): D64.9 - ANEMIA, UNSPECIFIED SNOMED Code(s): 646636207 Comment: Ideally, his hgb should be above 8.0 given his CAD. Will discuss this with cardiology and consider PRBCs today.
[2017-05-18] MEDS: Magnesium Oxide TAB* 400 MG PO SCH (10:02)
[2017-05-18 15:42] LABS: INR 1.42 (0.77-1.02)
[2017-05-18] MEDS ORDERED: Warfarin TAB(*) 4 MG PO ONE (17:00)
[2017-05-18] MEDS: Isosorbide Mononitrate ER TAB* 30 MG PO SCH (17:38)
[2017-05-18] MEDS: Atorvastatin* 80 MG TAB PO SCH (17:38)
[2017-05-19] MEDS: Vancomycin(*) 1,250 MG in NS 0.9% 250 ML* 250 ML IVPB SCH ×2 (01:25→08:32)
[2017-05-19] MEDS: Piperacillin/Tazobac ADVAN(*) 3.375 GM in NS 0.9% 100 ML* 100 ML IVPB SCH ×3 (04:25→20:48)
[2017-05-19 06:00] LABS: EGFR Non-African American 88.6 (>60)
[2017-05-19 07:53] LABS: INR 1.54 (0.77-1.02)
[2017-05-19] MEDS ORDERED: Magnesium Sulfate 2 GM IV* 2 GM/50 ML BAG IVPB ONE (08:19)
[2017-05-19] MEDS: Lisinopril TAB* 10 MG PO SCH ×2 (08:29→20:48)
[2017-05-19] MEDS: Potassium Chlor TAB* 20 MEQ TAB.ER PO SCH (08:30)
[2017-05-19] MEDS: Spironolactone TAB* 25 MG PO SCH (08:30)
[2017-05-19] MEDS: Lactobacillus Acidophilu (GG)* 1 CAP CAP PO SCH (08:30)
[2017-05-19] MEDS: amLODIPine TAB* 5 MG PO SCH (08:30)
[2017-05-19] MEDS: Psyllium PAK PO SCH (08:31)
[2017-05-19] MEDS: Carvedilol TAB* 25 MG PO SCH ×2 (08:31→20:48)
[2017-05-19] MEDS: Magnesium Oxide TAB* 400 MG PO SCH (08:31)
[2017-05-19] MEDS: Aspirin Low Dose CHEW TAB* 81 MG PO SCH (08:31)
[2017-05-19] MEDS: Famotidine TAB* 20 MG PO SCH (08:31)
[2017-05-19 08:33] LABS: ABS Basophils 0.1 10^3/ul (0-0.2); ABS Eosinophils 0.1 10^3/ul (0-0.6); ABS Lymphocytes 1.1 10^3/ul (1.0-4.8); ABS Neutrophils 5.5 10^3/ul (1.5-7.7); ABS Nucleated RBC 0 10^3/ul; Eosinophil % 1.6 % (0-6); Hematocrit 27 % (42-52); Hemoglobin 9.1 g/dl (14.0-18.0); Lymphocyte % 13.8 % (25-47); Mean Corpuscular HGB Conc 34 g/dl (31-36); Mean Corpuscular Hemoglobin 30 pg (27-31); Mean Corpuscular Volume 88 fL (80-94); Mean Platelet Volume 9 um3 (7.4-10.4); Nucleated Red Blood Cells % 0; Platelet Count 416 10^3/ul (150-450); Red Blood Count 3.03 10^6/ul (4.0-5.4); Red Cell Distribution Width 14 % (10.5-15); White Blood Count 7.7 10^3/ul (3.5-10.8)
--- NOTE | 2017-05-19 08:34 | ECHO ---
Patient: KYLIE COLE V [facility] Rec#: [id number] : 1965 Date: 05/19/2017 Age: 51y Height: 189 cm / 74.4 in Weight: 77.16 kg / 170.1 lbs Sex: M BSA: 2.04 Room#: 439 Admit Date#: 05/07/2017 Type: Inpatient Referring: Ghanshyam Alcazar MD Reading: Senthil Bartlett MD Edge Molder: [facility] Tran[facility]horacic Echocardiogram Indication: Follow up for apical thrombus BP: 128/73 HR: 79 Rhythm: NSR Findings History: S/P single chamber ICD, s/p cardiac arrest, [place], s/p PCI, apical thrombus. This is a LIMITED ECHO to reassess LV apical thrombus and wall motion. Technical Comments: The study quality is good. Left Ventricle: The left ventricular chamber size is normal. Moderate concentric left ventricular hypertrophy is observed. There are multiple regional wall motion abnormalities. There is moderately decreased left ventricular systolic function. The estimated ejection fraction is 30-35%. The apical septal, apical anterior, apical lateral, and apical inferior wall segments are hypokinetic (score 2). Overall wallmotion score index is 2.00 A thrombus is visualized in the left ventricular apex. Pericardium: There is no significant pericardial effusion. Conclusions Moderate concentric left ventricular hypertrophy is observed. There is moderately decreased left ventricular systolic function. The estimated ejection fraction is 30-35%. The apical septal, apical anterior, apical lateral, and apical inferior wall segments are hypokinetic (score 2). A thrombus is visualized in the left ventricular apex with a small area of mobile tissue. Compared to study of 05/11/17, the overall LV function is slightly better. :LV thrombus still present Wallmotion BAS Not Seen BA Not Seen BAL Not Seen KRISHAN Not Seen BI Not Seen BIS Not Seen MAS Not Seen MA Not Seen MAL Not Seen MIL Not Seen MN Not Seen MIS Not Seen Hypokinetic AA Hypokinetic AL Hypokinetic AI Hypokinetic APEX Akinetic
[2017-05-19 11:12] LABS: EGFR Non-African American 86.4 (>60)
--- NOTE | 2017-05-19 14:58 | PN ---
Subjective Date of Service: 05/19/17 Interval History: s/p 1 u pRBC yest. Hgb 7.8->9.1 Pt w/o new complaints. some tenderness near ICD hematoma. dry cough Tmax 100.0 3am, denies fevers/chills. From [place], trying to establish w/ PCP up there. Medicaid Pending INR 1.54. Lytes low and repleted this AM GPC in blood culture did NOT grow. ID stopped vancomycin. Family History: Unchanged from Admission Social History: Unchanged from Admission Past Medical History: Unchanged from Admission Objective Active Medications: Acetaminophen (Tylenol Tab*) 650 mg PO Q4H PRN PRN Reason: PAIN AND/OR FEVER Last Admin: 05/16/17 03:31 Dose: 650 mg Amlodipine Besylate (Norvasc Tab*) 10 mg PO DAILY [facility] Last Admin: 05/19/17 08:30 Dose: 10 mg Aspirin (Aspirin Low Dose Tab*) 81 mg PO DAILY [facility] Last Admin: 05/19/17 08:31 Dose: 81 mg Atorvastatin Calcium (Lipitor*) 80 mg PO 1700 [facility] Last Admin: 05/18/17 17:38 Dose: 80 mg Carvedilol (Coreg Tab*) 25 mg PO BID [facility] Last Admin: 05/19/17 08:31 Dose: 25 mg Famotidine (Pepcid Tab*) 20 mg PO DAILY [facility] Last Admin: 05/19/17 08:31 Dose: 20 mg Piperacillin Sod/Tazobactam (Sod 3.375 gm/ Sodium Chloride) 100 mls @ 25 mls/ hr IVPB 0500,1300,2100 [facility] Last Admin: 05/19/17 13:12 Dose: 25 mls/hr Isosorbide Mononitrate (Imdur Er Tab*) 30 mg PO 1700 [facility] Last Admin: 05/18/17 17:38 Dose: 30 mg Lactobacillus Rhamnosus (Culturelle*) 1 cap PO DAILY [facility] Last Admin: 05/19/17 08:30 Dose: 1 cap Lisinopril (Prinivil Tab*) 20 mg PO BID [facility] Last Admin: 05/19/17 08:29 Dose: 20 mg Magnesium Oxide (Magox 400 Tab*) 400 mg PO DAILY [facility] Last Admin: 05/19/17 08:31 Dose: 400 mg Pharmacy Profile Note (Coumadin Daily Reminder*) 1 note FOLLOW UP 1700 [facility] Last Admin: 05/18/17 17:38 Dose: 1 note Potassium Chloride (Klor Con Er Tab*) 40 meq PO DAILY [facility] Last Admin: 05/19/17 08:30 Dose: 40 meq Psyllium Hydrophilic Mucilloid (Metamucil Balwinder*) 1 pkt PO DAILY [facility] Last Admin: 05/19/17 08:31 Dose: 1 pkt Spironolactone (Aldactone Tab*) 25 mg PO DAILY [facility] Last Admin: 05/19/17 08:30 Dose: 25 mg Warfarin Sodium (Coumadin Tab(*)) 4 mg PO DAILY@1700 [facility] PRN Reason: Protocol Vital Signs - 8 hr 05/19/17 05/19/17 08:00 08:06 Temperature 98.8 F Pulse Rate 81 Respiratory 16 16 Rate Blood Pressure 143/85 (mmHg) O2 Sat by Pulse 97 97 Oximetry Oxygen Devices in Use Now: None Appearance: NAD, initially asleep. Eyes: No Scleral Icterus, PERRLA Ears/Nose/Mouth/Throat: NL Teeth, Lips, Gums, Mucous Membranes Moist Neck: NL Appearance and Movements; NL JVP, Trachea Midline Respiratory: Symmetrical Chest Expansion and Respiratory Effort, Clear to Auscultation Cardiovascular: NL Sounds; No Murmurs; No JVD, - - RRR, FERNY at apex. Abdominal: NL Sounds; No Tenderness; No Distention, No Hepatosplenomegaly Extremities: No Edema, No Clubbing, Cyanosis Skin: No Rash or Ulcers, No Nodules or Sclerosis Neurological: Alert and Oriented x 3, NL Sensation, NL Muscle Strength and Tone Nutrition: Taking PO's Result Diagrams: 05/19/17 05:17 05/19/17 10:19 Additional Lab and Data: Laboratory Results - last 24 hr 05/18/17 05/18/17 05/19/17 05:05 15:24 05:17 WBC 7.7 RBC 3.03 L Hgb 9.1 L Hct 27 L MCV 88 MCH 30 MCHC 34 RDW 14 Plt Count 416 MPV 9 Neut % (Auto) 71.1 Lymph % (Auto) 13.8 L [place] % (Auto) 12.6 H Eos % (Auto) 1.6 Baso % (Auto) 0.9 Absolute Neuts (auto) 5.5 Absolute Lymphs (auto) 1.1 Absolute Monos (auto) 1.0 H Absolute Eos (auto) 0.1 Absolute Basos (auto) 0.1 Absolute Nucleated RBC 0 Nucleated RBC % 0 INR (Anticoag Therapy) 1.42 H Sodium Potassium Chloride Carbon Dioxide Anion Gap BUN Creatinine Est GFR ( Amer) Est GFR (Non-Af Amer) BUN/Creatinine Ratio Glucose Calcium Magnesium Blood Type A Positive Antibody Screen Negative Crossmatch See Detail 05/19/17 05/19/17 05/19/17 05:18 05:18 10:19 WBC RBC Hgb Hct MCV MCH MCHC RDW Plt Count MPV Neut % (Auto) Lymph % (Auto) [place] % (Auto) Eos % (Auto) Baso % (Auto) Absolute Neuts (auto) Absolute Lymphs (auto) Absolute Monos (auto) Absolute Eos (auto) Absolute Basos (auto) Absolute Nucleated RBC Nucleated RBC % INR (Anticoag Therapy) 1.54 H Sodium 135 Potassium 3.6 Chloride 103 Carbon Dioxide 25 Anion Gap 7 BUN 6 7 Creatinine 0.90 0.92 Est GFR ( Amer) 114.0 111.1 Est GFR (Non-Af Amer) 88.6 86.4 BUN/Creatinine Ratio 6.7 L Glucose 95 Calcium 8.5 L Magnesium 1.7 L Blood Type Antibody Screen Crossmatch Microbiology and Other Data: Microbiology 05/16/17 12:02 Blood Venous Aerobic Blood Culture - Final 05/16/17 12:02 Blood Venous Anaerobic Blood Culture - Preliminary No Growth Day 3 05/16/17 12:02 Blood Venous Blood MRSA/MSSA (PCR) - Final Mrsa Negative S.aureus Negative 05/16/17 09:56 Blood Venous Aerobic Blood Culture - Preliminary No Growth Day 3 05/16/17 09:56 Blood Venous Anaerobic Blood Culture - Preliminary No Growth Day 3 05/16/17 14:44 Urine Streptococcus pneumoniae Ag Screen - Final Negative S. pneumo Antigen 05/09/17 09:35 Blood Venous Aerobic Blood Culture - Final No Growth Day 5 05/09/17 09:35 Blood Venous Anaerobic Blood Culture - Final No Growth Day 5 05/11/17 09:20 Sputum Gram Stain - Final 05/11/17 09:20 Sputum Sputum Culture - Final Staphylococcus Aureus 05/08/17 06:05 Nasal Nasal Screen MRSA (PCR)(JEEVAN) - Final Mrsa Not Detected Assess/Plan/Problems-Billing Mr Veras 51 yo M from [facility] TBI p/w collapse at work. Bystander CPR was started and when EMS arrived he received 2 defibrillations with ROSC. 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 s/p ICD 05/14 c/b hematoma. EF 30-35% w / LV thrombus on Warfarin only given hematoma - Patient Problems (1) LV (left ventricular) mural thrombus following IL Current Visit: Yes Status: Acute Code(s): I21.29 - STEMI INVOLVING OTH SITES ; I23.6 - THOMBOS OF ATRIUM/AURIC APPEND/VENTR CURRENT COMP FOL AMI SNOMED Code(s): 445662843 Comment: On echo 05/11 and repeat 05/18 has large LV thrombus. Was initially on lovenox/coumadin bridge, however after discussing risks/ benefits in setting of pocket hematoma with cardiology, the lovenox was discontinued 05/17 and warfarin only was continued. INR daily (2) Anemia Current Visit: Yes Status: Acute Code(s): D64.9 - ANEMIA, UNSPECIFIED SNOMED Code(s): 447463645 Comment: sp 1 u PRBC. Hgb 9.1 on coumadin (only given ICD pocket hematoma, previously thetapeutic lovenox also) for LV thrombus. normocytic. add iron panel and ferritin in AM (3) Cardiac arrest Current Visit: Yes Status: Acute Code(s): I46.9 - CARDIAC ARREST, CAUSE UNSPECIFIED SNOMED Code(s): 232264885 Comment: Vfib arrest, s/p defibrillation x2 with ROSC; underwent cooling protocol in ICU. Now s/p ICD placement 05/14/17 for secondary prevention. (4) CAD (coronary artery disease), [place] coronary artery Current Visit: Yes Status: Acute Code(s): I25.10 - ATHSCL HEART DISEASE OF [place] CORONARY ARTERY W/O ANG PCTRS SNOMED Code(s): 1141547170095 Comment: The patient was found to have an occluded LAD that is believed to have chronic total occlusion with collaterals. No wire was able to be passed. Troponins peaked at 0.9, which was more likely from the arrest than an IL at the time of presentation. He will be maintained on ASA 81mg daily, lipitor 80mg , and coreg 25mg BID. (5) HTN (hypertension) Current Visit: Yes Status: Acute Code(s): I10 - ESSENTIAL (PRIMARY) HYPERTENSION SNOMED Code(s): 23815089 Comment: BP had been difficult to control. required many agents: amlodipine 10mg daily coreg 25mg BID lisinopril 20mg BID spironolactone 25mg daily imdur 30mg daily (6) DVT prophylaxis Current Visit: Yes Status: Acute Code(s): FFX4284 - SNOMED Code(s): 625477501 Comment: SCDs, coumadin (7) Full code status Current Visit: Yes Status: Acute Code(s): Z78.9 - OTHER SPECIFIED HEALTH STATUS SNOMED Code(s): 598989504 (8) Ischemic cardiomyopathy Current Visit: Yes Status: Acute Code(s): I25.5 - ISCHEMIC CARDIOMYOPATHY SNOMED Code(s): 814765025 Comment: 3/4 EF 30-35% improved from 25-30%. Continue coreg, lisinopril, spironolactone. ICD in place, euvolemic will arrange cardiology follow up in [place] at discharge (9) Pacemaker pocket hematoma Current Visit: Yes Status: Acute Code(s): T82.837A - HEMORRHAGE DUE TO CARDIAC PROSTH DEV/GRFT, INITIAL ENCOUNTER SNOMED Code(s): 416054136 Comment: plan as above--hold lovenox, continue warfarin and monitor closely (10) RML pneumonia Current Visit: Yes Status: Acute Code(s): J18.1 - LOBAR PNEUMONIA, UNSPECIFIED ORGANISM SNOMED Code(s): 154490637 Comment: Likely aspiration during arrest Appreciate ID recs: Continue zosyn day 4. ID has stopped Vanc (got 4 days). Sputum was growing Staph Aureus. Bcx w/ GPC that did not grow and may have been staining artifact Status and Disposition: medicine inpatient.
[2017-05-19] MEDS: Isosorbide Mononitrate ER TAB* 30 MG PO SCH (17:21)
[2017-05-19] MEDS: Atorvastatin* 80 MG TAB PO SCH (17:21)
[2017-05-19] MEDS: Warfarin TAB(*) 4 MG PO SCH (17:21)
[2017-05-19] MEDS: Acetaminophen TAB* 325 MG PO PRN (20:47)
--- NOTE | 2017-05-19 20:58 | CONS ---
CONSULTATION REPORT: DATE OF CONSULT: 05/19/17 REQUESTING PHYSICIAN: Dr. Conklin. CONSULTING SERVICE: Infectious Disease. REASON FOR CONSULT: Pneumonia. IMPRESSION: 1. [id number] cardiac arrest and chronic left anterior descending artery lesion, now status post implantable cardioverter-defibrillator implantation. 2. Fever, found to have an infiltrate in the right lower lung. Suspect aspiration in the setting of cardiac arrest. He did have Staphylococcus aureus , methicillin sensitive in the sputum. RECOMMENDATIONS: 1. Stop vancomycin, continue Zosyn, and he could use Augmentin 500 mg by mouth twice a day to complete a 7-day course of antibiotics. He needs followup x-ray in 1 month to ensure resolution radiographically. 2. HIV antibody for which he has given verbal consent. HISTORY OF PRESENT ILLNESS: This is a 51-year-old man who had an out-of- hospital cardiac arrest. He lives in [place] but was working in the area, brought to the hospital here. His initial chest x-ray did not show infiltrate. He was taken to the catheterization laboratory where he was found to have a chronic LAD lesion, which was not stentable. Because of his V-fib arrest and depressed ejection fraction, he has had a defibrillator placed, which he tolerated well. There was a small hematoma in the pocket. He was hypothermic initially and then had fever starting on 05/13/17 and then his last fever was . He has no cough or sputum production. He feels well. He has been walking in the halls of Physical Therapy. PAST MEDICAL HISTORY: Cardiac arrest and cardiomyopathy, status post ICD placement. MEDICATIONS: 1. Tylenol. 2. Amlodipine. 3. Aspirin. 4. Lipitor. 5. Coreg. 6. Famotidine. 7. Imdur. 8. Lactobacillus. 9. Lisinopril. 10. Magnesium. 11. Potassium. 12. Psyllium. 13. Spironolactone. 14. Warfarin. 15. Vancomycin. ALLERGIES: No known drug allergies. FAMILY HISTORY: No recurrent infections. 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 No injection drugs. REVIEW OF SYSTEMS: All negative except as noted above in the history of present illness. PHYSICAL EXAM: Vital Signs: Temperature is 37.5, heart rate 80, respiratory rate 16, blood pressure 130/70, oxygen saturation 95% on room air. In general, he is awake, not in distress. Neurologic: He is oriented x3. Follows all commands. HEENT: There is no conjunctival hemorrhage. Oropharynx without lesions. Neck is supple without mass. Lymph Nodes: There is no cervical, supraclavicular, inguinal, axillary, or epitrochlear lymphadenopathy. Heart has regular rate and rhythm without murmurs, rubs, or gallops. Lungs have decreased breath sounds at the right base without wheeze or rales. There is no egophony. Abdomen: Soft, nontender, nondistended. There are bowel sounds present. Skin: There is no rash or splinter hemorrhages. Musculoskeletal: No spine tenderness to palpation. LABORATORY DATA: White cell count 7.7, hemoglobin 9, MCV 88, platelets 416. Creatinine is 0.9. Please see impressions and recommendations outlined above, which I have discussed with Dr. Mccray. Thank you for asking me to see Mr. Veras in consultation. [id number]/[facility] #: [id number] MTDD
[2017-05-20 05:31] LABS: INR 1.83 (0.77-1.02)
[2017-05-20] MEDS: Piperacillin/Tazobac ADVAN(*) 3.375 GM in NS 0.9% 100 ML* 100 ML IVPB SCH ×2 (05:31→13:18)
[2017-05-20] MEDS: Lactobacillus Acidophilu (GG)* 1 CAP CAP PO SCH (09:20)
[2017-05-20] MEDS: Spironolactone TAB* 25 MG PO SCH (09:20)
[2017-05-20] MEDS: amLODIPine TAB* 5 MG PO SCH (09:20)
[2017-05-20] MEDS: Potassium Chlor TAB* 20 MEQ TAB.ER PO SCH (09:20)
[2017-05-20] MEDS: Carvedilol TAB* 25 MG PO SCH ×2 (09:20→20:45)
[2017-05-20] MEDS: Psyllium PAK PO SCH (09:21)
[2017-05-20] MEDS: Aspirin Low Dose CHEW TAB* 81 MG PO SCH (09:21)
[2017-05-20] MEDS: Magnesium Oxide TAB* 400 MG PO SCH (09:21)
[2017-05-20] MEDS: Famotidine TAB* 20 MG PO SCH (09:21)
[2017-05-20] MEDS: Lisinopril TAB* 10 MG PO SCH ×2 (09:24→20:45)
[2017-05-20] MEDS ORDERED: ceFAZolin 2 GM PREMIX (*) 2 GM/50 ML BAG IVPB SCH (16:00)
--- NOTE | 2017-05-20 16:16 | PN ---
Progress Note - Progress Note Date of Service: 05/20/17 SOAP: Subjective: CC: pneumonia HPI: 51 year old man out of hosp arrest s/p ICD. R lower lobe pneumonia after eval for fever. No cough or dyspnea. Fever resolved. Objective: Vital Signs Temp 37.1 C 05/20/17 11:33 Pulse 73 05/20/17 11:33 Resp 17 05/20/17 11:33 BP 111/70 05/20/17 11:33 Pulse Ox 97 05/20/17 14:36 Intake & Output 05/19/17 05/20/17 05/20/17 18:59 06:59 18:59 Intake Total 1115 110 150 Output Total 400 300 Balance 1115 -290 -150 Intake: IV Fluids 30 ABX - VANCOMYCIN 15 Magnesium 15 IVPB 325 110 ABX - VANCOMYCIN 270 Magnesium 55 Zosyn 110 Oral 760 0 150 Output: Urine 400 300 Other: # Bowel Movements 0 Gen:awake, no distress Neuro:Ox3 HEENT: no thrush Heart:RRR no murmur Lungs: Decr BS R base Abd:+BS NTND soft Skin: no rash Laboratory Results - last 24 hr 05/19/17 05/20/17 05/20/17 05:18 05:10 05:10 INR (Anticoag Therapy) 1.83 H Iron 28 L TIBC 242 L % Saturation 12 L Unsat Iron Binding 214 Ferritin 281.2 HIV 1&2 Antibody Nonreactive Assessment: 1. Pneumonia ?aspiration during arrest 2. VT/VF arrest s/p ICD Plan: 1. change zosyn to augmentin 500 mg po bid x5 more days (ordered). FU CXR 1 month.
[2017-05-20] MEDS: Atorvastatin* 80 MG TAB PO SCH (17:14)
[2017-05-20] MEDS: Warfarin TAB(*) 4 MG PO SCH (17:14)
--- NOTE | 2017-05-20 17:35 | PN ---
Subjective Date of Service: 05/20/17 Interval History: no overnight events, feels good. no pain over hematoma, no numbness or tingling , no chest pain. has been walking around. Family History: Unchanged from Admission Social History: Unchanged from Admission Past Medical History: Unchanged from Admission Objective Active Medications: Acetaminophen (Tylenol Tab*) 650 mg PO Q4H PRN PRN Reason: PAIN AND/OR FEVER Last Admin: 05/19/17 20:47 Dose: 650 mg Amlodipine Besylate (Norvasc Tab*) 10 mg PO DAILY [facility] Last Admin: 05/20/17 09:20 Dose: 10 mg Amoxicillin/Clavulanate Potassium (Augmentin Tab*) 500 mg PO BID [facility] Aspirin (Aspirin Low Dose Tab*) 81 mg PO DAILY [facility] Last Admin: 05/20/17 09:21 Dose: 81 mg Atorvastatin Calcium (Lipitor*) 80 mg PO 1700 [facility] Last Admin: 05/20/17 17:14 Dose: 80 mg Carvedilol (Coreg Tab*) 25 mg PO BID [facility] Last Admin: 05/20/17 09:20 Dose: 25 mg Famotidine (Pepcid Tab*) 20 mg PO DAILY [facility] Last Admin: 05/20/17 09:21 Dose: 20 mg Lactobacillus Rhamnosus (Culturelle*) 1 cap PO DAILY [facility] Last Admin: 05/20/17 09:20 Dose: 1 cap Lisinopril (Prinivil Tab*) 20 mg PO BID [facility] Last Admin: 05/20/17 09:24 Dose: 20 mg Magnesium Oxide (Magox 400 Tab*) 400 mg PO DAILY [facility] Last Admin: 05/20/17 09:21 Dose: 400 mg Pharmacy Profile Note (Coumadin Daily Reminder*) 1 note FOLLOW UP 1700 [facility] Last Admin: 05/19/17 17:53 Dose: 1 note Potassium Chloride (Klor Con Er Tab*) 40 meq PO DAILY [facility] Last Admin: 05/20/17 09:20 Dose: 40 meq Psyllium Hydrophilic Mucilloid (Metamucil Balwinder*) 1 pkt PO DAILY [facility] Last Admin: 05/20/17 09:21 Dose: 1 pkt Spironolactone (Aldactone Tab*) 25 mg PO DAILY [facility] Last Admin: 05/20/17 09:20 Dose: 25 mg Warfarin Sodium (Coumadin Tab(*)) 4 mg PO DAILY@1700 [facility] PRN Reason: Protocol Last Admin: 05/20/17 17:14 Dose: 4 mg Vital Signs - 8 hr 05/20/17 05/20/17 05/20/17 11:33 12:00 14:36 Temperature 98.8 F Pulse Rate 73 Respiratory 17 Rate Blood Pressure 111/70 (mmHg) O2 Sat by Pulse 97 97 97 Oximetry 05/20/17 15:05 Temperature 99.2 F Pulse Rate 71 Respiratory 16 Rate Blood Pressure 114/75 (mmHg) O2 Sat by Pulse 98 Oximetry Oxygen Devices in Use Now: None Appearance: thin, no distress Eyes: No Scleral Icterus Ears/Nose/Mouth/Throat: NL Teeth, Lips, Gums Neck: NL Appearance and Movements; NL JVP, Trachea Midline Respiratory: Symmetrical Chest Expansion and Respiratory Effort, Clear to Auscultation Cardiovascular: NL Sounds; No Murmurs; No JVD, RRR, - - left chest wall hematoma , 4cm x 4cm Abdominal: NL Sounds; No Tenderness; No Distention Lymphatic: No Cervical Adenopathy Extremities: No Edema Skin: No Rash or Ulcers Result Diagrams: 05/19/17 05:17 05/19/17 10:19 Additional Lab and Data: Laboratory Results - last 24 hr 05/18/17 05/18/17 05/19/17 05:05 15:24 05:17 WBC 7.7 RBC 3.03 L Hgb 9.1 L Hct 27 L MCV 88 MCH 30 MCHC 34 RDW 14 Plt Count 416 MPV 9 Neut % (Auto) 71.1 Lymph % (Auto) 13.8 L [place] % (Auto) 12.6 H Eos % (Auto) 1.6 Baso % (Auto) 0.9 Absolute Neuts (auto) 5.5 Absolute Lymphs (auto) 1.1 Absolute Monos (auto) 1.0 H Absolute Eos (auto) 0.1 Absolute Basos (auto) 0.1 Absolute Nucleated RBC 0 Nucleated RBC % 0 INR (Anticoag Therapy) 1.42 H Sodium Potassium Chloride Carbon Dioxide Anion Gap BUN Creatinine Est GFR ( Amer) Est GFR (Non-Af Amer) BUN/Creatinine Ratio Glucose Calcium Magnesium Blood Type A Positive Antibody Screen Negative Crossmatch See Detail 05/19/17 05/19/17 05/19/17 05:18 05:18 10:19 WBC RBC Hgb Hct MCV MCH MCHC RDW Plt Count MPV Neut % (Auto) Lymph % (Auto) [place] % (Auto) Eos % (Auto) Baso % (Auto) Absolute Neuts (auto) Absolute Lymphs (auto) Absolute Monos (auto) Absolute Eos (auto) Absolute Basos (auto) Absolute Nucleated RBC Nucleated RBC % INR (Anticoag Therapy) 1.54 H Sodium 135 Potassium 3.6 Chloride 103 Carbon Dioxide 25 Anion Gap 7 BUN 6 7 Creatinine 0.90 0.92 Est GFR ( Amer) 114.0 111.1 Est GFR (Non-Af Amer) 88.6 86.4 BUN/Creatinine Ratio 6.7 L Glucose 95 Calcium 8.5 L Magnesium 1.7 L Blood Type Antibody Screen Crossmatch Microbiology and Other Data: Microbiology 05/16/17 12:02 Blood Venous Aerobic Blood Culture - Final 05/16/17 12:02 Blood Venous Anaerobic Blood Culture - Preliminary No Growth Day 3 05/16/17 12:02 Blood Venous Blood MRSA/MSSA (PCR) - Final Mrsa Negative S.aureus Negative 05/16/17 09:56 Blood Venous Aerobic Blood Culture - Preliminary No Growth Day 3 05/16/17 09:56 Blood Venous Anaerobic Blood Culture - Preliminary No Growth Day 3 05/16/17 14:44 Urine Streptococcus pneumoniae Ag Screen - Final Negative S. pneumo Antigen 05/09/17 09:35 Blood Venous Aerobic Blood Culture - Final No Growth Day 5 05/09/17 09:35 Blood Venous Anaerobic Blood Culture - Final No Growth Day 5 05/11/17 09:20 Sputum Gram Stain - Final 05/11/17 09:20 Sputum Sputum Culture - Final Staphylococcus Aureus 05/08/17 06:05 Nasal Nasal Screen MRSA (PCR)(JEEVAN) - Final Mrsa Not Detected Assess/Plan/Problems-Billing Mr Veras 51 yo M from [facility] TBI p/w collapse at work. Bystander CPR was started and when EMS arrived he received 2 defibrillations with ROSC. Intubated in the ER and taken emergently to the cardiac laborer [facility], where an chronic obstructive LAD lesion was found. s/p ICD 05/14 complicated by hematoma. EF 30-35% w/ LV thrombus on Warfarin only given hematoma - Patient Problems (1) LV (left ventricular) mural thrombus following [place] Current Visit: Yes Status: Acute Code(s): I21.29 - STEMI INVOLVING OTH SITES ; I23.6 - THOMBOS OF ATRIUM/AURIC APPEND/VENTR CURRENT COMP FOL AMI SNOMED Code(s): 120133674 Comment: Was initially on lovenox/coumadin bridge, however after discussing risks/benefits in setting of pocket hematoma with cardiology, the lovenox was discontinued 3/ and warfarin only was continued. INR daily (2) Pacemaker pocket hematoma Current Visit: Yes Status: Acute Code(s): T82.837A - HEMORRHAGE DUE TO CARDIAC PROSTH DEV/GRFT, INITIAL ENCOUNTER SNOMED Code(s): 182330918 Comment: plan as above--hold lovenox, continue warfarin and monitor closely recheck hgb tomorrow (3) CAD (coronary artery disease), [place] coronary artery Current Visit: Yes Status: Acute Code(s): I25.10 - ATHSCL HEART DISEASE OF [place] CORONARY ARTERY W/O ANG PCTRS SNOMED Code(s): 4807794231357 Comment: The patient was found to have an occluded LAD that is believed to have chronic total occlusion with collaterals. No wire was able to be passed. Troponins peaked at 0.9, which was more likely from the arrest than an [place] at the time of presentation. He will be maintained on ASA 81mg daily, lipitor 80mg , and coreg 25mg BID. (4) Ischemic cardiomyopathy Current Visit: Yes Status: Acute Code(s): I25.5 - ISCHEMIC CARDIOMYOPATHY SNOMED Code(s): 457442997 Comment: 3/ EF 30-35% improved from 25-30%. Continue coreg, lisinopril, spironolactone. ICD in place, euvolemic will need close cardiology follow up (5) Cardiac arrest Current Visit: Yes Status: Acute Code(s): I46.9 - CARDIAC ARREST, CAUSE UNSPECIFIED SNOMED Code(s): 972411744 Comment: Vfib arrest, s/p defibrillation x2 with ROSC; underwent cooling protocol in ICU. Now s/p ICD placement 05/14/17 for secondary prevention. (6) RML pneumonia Current Visit: Yes Status: Acute Code(s): J18.1 - LOBAR PNEUMONIA, UNSPECIFIED ORGANISM SNOMED Code(s): 124922844 Comment: Likely aspiration during arrest seen by ID; changed abx to augmentin (7) Anemia Current Visit: Yes Status: Acute Code(s): D64.9 - ANEMIA, UNSPECIFIED SNOMED Code(s): 227894493 Comment: sp 1 u PRBC /. normocytic. recheck tomorrow Status and Disposition: medicine inpatient.
[2017-05-20] MEDS: Amoxicillin/Clavulanate TAB* 500 MG PO SCH (20:45)
[2017-05-20] MEDS ORDERED: Piperacillin/Tazobactam 13.5 GM IV 24 hour continuous infusion IVPB SCH ×2 (21:00)
[2017-05-21 05:33] LABS: Hematocrit 32 % (42-52); Hemoglobin 10.6 g/dl (14.0-18.0); Mean Corpuscular HGB Conc 33 g/dl (31-36); Mean Corpuscular Hemoglobin 29 pg (27-31); Mean Corpuscular Volume 88 fL (80-94); Mean Platelet Volume 8 um3 (7.4-10.4); Platelet Count 503 10^3/ul (150-450); Red Blood Count 3.63 10^6/ul (4.0-5.4); Red Cell Distribution Width 14 % (10.5-15); White Blood Count 7.2 10^3/ul (3.5-10.8)
[2017-05-21 05:46] LABS: INR 1.89 (0.77-1.02)
[2017-05-21 06:55] LABS: Monocytes % 16 % (0-7)
[2017-05-21] MEDS: amLODIPine TAB* 5 MG PO SCH (09:18)
[2017-05-21] MEDS: Aspirin Low Dose CHEW TAB* 81 MG PO SCH (09:19)
[2017-05-21] MEDS: Carvedilol TAB* 25 MG PO SCH ×2 (09:19→20:51)
[2017-05-21] MEDS: Amoxicillin/Clavulanate TAB* 500 MG PO SCH ×2 (09:19→20:51)
[2017-05-21] MEDS: Famotidine TAB* 20 MG PO SCH (09:19)
[2017-05-21] MEDS: Lisinopril TAB* 10 MG PO SCH ×2 (09:20→20:51)
[2017-05-21] MEDS: Magnesium Oxide TAB* 400 MG PO SCH (09:20)
[2017-05-21] MEDS: Lactobacillus Acidophilu (GG)* 1 CAP CAP PO SCH (09:20)
[2017-05-21] MEDS: Spironolactone TAB* 25 MG PO SCH (09:21)
[2017-05-21] MEDS: Potassium Chlor TAB* 20 MEQ TAB.ER PO SCH (09:21)
[2017-05-21] MEDS: Psyllium PAK PO SCH (09:21)
--- NOTE | 2017-05-21 13:25 | PN ---
Subjective Date of Service: 05/21/17 Interval History: feels good, no pain, no sob, numbness. has been walking in the hallways and feels good. Family History: Unchanged from Admission Social History: Unchanged from Admission Past Medical History: Unchanged from Admission Objective Active Medications: Acetaminophen (Tylenol Tab*) 650 mg PO Q4H PRN PRN Reason: PAIN AND/OR FEVER Last Admin: 05/19/17 20:47 Dose: 650 mg Amlodipine Besylate (Norvasc Tab*) 10 mg PO DAILY [facility] Last Admin: 05/21/17 09:18 Dose: 10 mg Amoxicillin/Clavulanate Potassium (Augmentin Tab*) 500 mg PO BID [facility] Last Admin: 05/21/17 09:19 Dose: 500 mg Aspirin (Aspirin Low Dose Tab*) 81 mg PO DAILY [facility] Last Admin: 05/21/17 09:19 Dose: 81 mg Atorvastatin Calcium (Lipitor*) 80 mg PO 1700 [facility] Last Admin: 05/20/17 17:14 Dose: 80 mg Carvedilol (Coreg Tab*) 25 mg PO BID [facility] Last Admin: 05/21/17 09:19 Dose: 25 mg Famotidine (Pepcid Tab*) 20 mg PO DAILY [facility] Last Admin: 05/21/17 09:19 Dose: 20 mg Lactobacillus Rhamnosus (Culturelle*) 1 cap PO DAILY [facility] Last Admin: 05/21/17 09:20 Dose: 1 cap Lisinopril (Prinivil Tab*) 20 mg PO BID [facility] Last Admin: 05/21/17 09:20 Dose: 20 mg Magnesium Oxide (Magox 400 Tab*) 400 mg PO DAILY [facility] Last Admin: 05/21/17 09:20 Dose: 400 mg Pharmacy Profile Note (Coumadin Daily Reminder*) 1 note FOLLOW UP 1700 [facility] Last Admin: 05/20/17 17:34 Dose: 1 note Potassium Chloride (Klor Con Er Tab*) 40 meq PO DAILY [facility] Last Admin: 05/21/17 09:21 Dose: 40 meq Psyllium Hydrophilic Mucilloid (Metamucil Balwinder*) 1 pkt PO DAILY [facility] Last Admin: 05/21/17 09:21 Dose: 1 pkt Spironolactone (Aldactone Tab*) 25 mg PO DAILY [facility] Last Admin: 05/21/17 09:21 Dose: 25 mg Warfarin Sodium (Coumadin Tab(*)) 4 mg PO DAILY@1700 [facility] PRN Reason: Protocol Last Admin: 05/20/17 17:14 Dose: 4 mg Vital Signs - 8 hr 05/21/17 05/21/17 05/21/17 07:36 08:00 11:38 Temperature 99.2 F 99.0 F Pulse Rate 71 75 Respiratory 16 16 16 Rate Blood Pressure 133/87 111/84 (mmHg) O2 Sat by Pulse 97 99 Oximetry Oxygen Devices in Use Now: None Appearance: thin, alert, well appearing Eyes: No Scleral Icterus Ears/Nose/Mouth/Throat: NL Teeth, Lips, Gums Neck: NL Appearance and Movements; NL JVP Respiratory: Symmetrical Chest Expansion and Respiratory Effort, Clear to Auscultation Cardiovascular: RRR, No Edema, - - no s3/s4. pocket hematoma smaller than yesterday; [id number] Lymphatic: No Cervical Adenopathy Extremities: No Edema Skin: No Rash or Ulcers Neurological: - - flat affect Result Diagrams: 05/21/17 04:52 05/19/17 10:19 Additional Lab and Data: Laboratory Results - last 24 hr 05/18/17 05/18/17 05/19/17 05:05 15:24 05:17 WBC 7.7 RBC 3.03 L Hgb 9.1 L Hct 27 L MCV 88 MCH 30 MCHC 34 RDW 14 Plt Count 416 MPV 9 Neut % (Auto) 71.1 Lymph % (Auto) 13.8 L Bowie % (Auto) 12.6 H Eos % (Auto) 1.6 Baso % (Auto) 0.9 Absolute Neuts (auto) 5.5 Absolute Lymphs (auto) 1.1 Absolute Monos (auto) 1.0 H Absolute Eos (auto) 0.1 Absolute Basos (auto) 0.1 Absolute Nucleated RBC 0 Nucleated RBC % 0 INR (Anticoag Therapy) 1.42 H Sodium Potassium Chloride Carbon Dioxide Anion Gap BUN Creatinine Est GFR ( Amer) Est GFR (Non-Af Amer) BUN/Creatinine Ratio Glucose Calcium Magnesium Blood Type A Positive Antibody Screen Negative Crossmatch See Detail 05/19/17 05/19/17 05/19/17 05:18 05:18 10:19 WBC RBC Hgb Hct MCV MCH MCHC RDW Plt Count MPV Neut % (Auto) Lymph % (Auto) Bowie % (Auto) Eos % (Auto) Baso % (Auto) Absolute Neuts (auto) Absolute Lymphs (auto) Absolute Monos (auto) Absolute Eos (auto) Absolute Basos (auto) Absolute Nucleated RBC Nucleated RBC % INR (Anticoag Therapy) 1.54 H Sodium 135 Potassium 3.6 Chloride 103 Carbon Dioxide 25 Anion Gap 7 BUN 6 7 Creatinine 0.90 0.92 Est GFR ( Amer) 114.0 111.1 Est GFR (Non-Af Amer) 88.6 86.4 BUN/Creatinine Ratio 6.7 L Glucose 95 Calcium 8.5 L Magnesium 1.7 L Blood Type Antibody Screen Crossmatch Microbiology and Other Data: Microbiology 05/16/17 12:02 Blood Venous Aerobic Blood Culture - Final 05/16/17 12:02 Blood Venous Anaerobic Blood Culture - Preliminary No Growth Day 3 05/16/17 12:02 Blood Venous Blood MRSA/MSSA (PCR) - Final Mrsa Negative S.aureus Negative 05/16/17 09:56 Blood Venous Aerobic Blood Culture - Preliminary No Growth Day 3 05/16/17 09:56 Blood Venous Anaerobic Blood Culture - Preliminary No Growth Day 3 05/16/17 14:44 Urine Streptococcus pneumoniae Ag Screen - Final Negative S. pneumo Antigen 05/09/17 09:35 Blood Venous Aerobic Blood Culture - Final No Growth Day 5 05/09/17 09:35 Blood Venous Anaerobic Blood Culture - Final No Growth Day 5 05/11/17 09:20 Sputum Gram Stain - Final 05/11/17 09:20 Sputum Sputum Culture - Final Staphylococcus Aureus 05/08/17 06:05 Nasal Nasal Screen MRSA (PCR)(JEEVAN) - Final Mrsa Not Detected Assess/Plan/Problems-Billing Mr Veras 51 yo M from [place] with history of a TBI who had collapsed at work. Bystander CPR was started and when EMS arrived he received 2 defibrillations with ROSC. Intubated in the ER and taken emergently to the cardiac laborer cement gun placing, where an chronic obstructive LAD lesion was found. s/p ICD / complicated by hematoma. EF 30-35% w/ LV thrombus on Warfarin only due to hematoma - Patient Problems (1) LV (left ventricular) mural thrombus following CO Current Visit: Yes Status: Acute Code(s): I21.29 - STEMI INVOLVING OTH SITES ; I23.6 - THOMBOS OF ATRIUM/AURIC APPEND/VENTR CURRENT COMP FOL AMI SNOMED Code(s): 939919270 Comment: Subtherapeutic on warfarin today; increase dose to 5mg daily. Starting 05/15, got 5mg, 2.5mg, 2.5, 4, 4, 4. Was initially on lovenox/coumadin bridge, however after discussing risks/ benefits in setting of pocket hematoma with cardiology, the lovenox was discontinued 05/17 and warfarin only was continued. (2) Pacemaker pocket hematoma Current Visit: Yes Status: Acute Code(s): T82.837A - HEMORRHAGE DUE TO CARDIAC PROSTH DEV/GRFT, INITIAL ENCOUNTER SNOMED Code(s): 357980596 Comment: stable, improving, hgb stable plan as above--hold lovenox, continue warfarin and monitor closely (3) CAD (coronary artery disease), [place] coronary artery Current Visit: Yes Status: Acute Code(s): I25.10 - ATHSCL HEART DISEASE OF [place] CORONARY ARTERY W/O ANG PCTRS SNOMED Code(s): 6084688253472 Comment: The patient was found to have an occluded LAD that is believed to have chronic total occlusion with collaterals. No wire was able to be passed. Troponins peaked at 0.9, which was more likely from the arrest than an CO at the time of presentation. He will be maintained on ASA 81mg daily, lipitor 80mg , and coreg 25mg BID. (4) Ischemic cardiomyopathy Current Visit: Yes Status: Acute Code(s): I25.5 - ISCHEMIC CARDIOMYOPATHY SNOMED Code(s): 477909011 Comment: 05/18 EF 30-35% improved from 25-30%. Continue coreg, lisinopril, spironolactone. ICD in place, euvolemic will need close cardiology follow up (5) Cardiac arrest Current Visit: Yes Status: Acute Code(s): I46.9 - CARDIAC ARREST, CAUSE UNSPECIFIED SNOMED Code(s): 961255804 Comment: Vfib arrest, s/p defibrillation x2 with ROSC; underwent cooling protocol in ICU. Now s/p ICD placement 05/14/17 for secondary prevention. (6) RML pneumonia Current Visit: Yes Status: Acute Code(s): J18.1 - LOBAR PNEUMONIA, UNSPECIFIED ORGANISM SNOMED Code(s): 323804820 Comment: Likely aspiration during arrest seen by ID; changed abx to augmentin (7) Anemia Current Visit: Yes Status: Acute Code(s): D64.9 - ANEMIA, UNSPECIFIED SNOMED Code(s): 843118156 Comment: sp 1 u PRBC /. normocytic. now stable Status and Disposition: medicine inpatient.
[2017-05-21] MEDS: Atorvastatin* 80 MG TAB PO SCH (17:50)
[2017-05-21] MEDS: Warfarin TAB(*) 5 MG PO SCH (17:52)
[2017-05-22 05:52] LABS: INR 2.2 (0.77-1.02)
[2017-05-22] MEDS: Aspirin Low Dose CHEW TAB* 81 MG PO SCH (09:33)
[2017-05-22] MEDS: Amoxicillin/Clavulanate TAB* 500 MG PO SCH (09:33)
[2017-05-22] MEDS: amLODIPine TAB* 5 MG PO SCH (09:33)
[2017-05-22] MEDS: Carvedilol TAB* 25 MG PO SCH (09:34)
[2017-05-22] MEDS: Famotidine TAB* 20 MG PO SCH (09:34)
[2017-05-22] MEDS: Lactobacillus Acidophilu (GG)* 1 CAP CAP PO SCH (09:35)
[2017-05-22] MEDS: Potassium Chlor TAB* 20 MEQ TAB.ER PO SCH (09:36)
[2017-05-22] MEDS: Magnesium Oxide TAB* 400 MG PO SCH (09:36)
[2017-05-22] MEDS: Lisinopril TAB* 10 MG PO SCH (09:36)
[2017-05-22] MEDS: Spironolactone TAB* 25 MG PO SCH (09:37)
[2017-05-22] MEDS: Psyllium PAK PO SCH (09:37)
[2017-05-22 14:51] VITALS: BP 98/68
[2017-05-22] MEDS: Warfarin TAB(*) 5 MG PO SCH (17:16)
[2017-05-22] MEDS: Atorvastatin* 80 MG TAB PO SCH (17:17)
--- NOTE | 2017-05-23 04:57 | DS ---
ADDENDUM INCLUDED ON THIS REPORT CC: Dr. Francisco Haskins; Dr. Man, * DISCHARGE SUMMARY: DATE OF ADMISSION: 05/07/17 DATE OF DISCHARGE: 05/22/17 PRINCIPAL DISCHARGE DIAGNOSES: 1. Ventricular fibrillation arrest. 2. 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 3. Left ventricular thrombus. 4. Pacemaker pocket hematoma. 5. Aspiration pneumonia. 6. Ischemic cardiomyopathy. DISCHARGE MEDICATIONS: 1. Amlodipine 10 mg daily. 2. Aspirin 81 mg daily. 3. Atorvastatin 80 mg daily. 4. Coreg 25 mg b.i.d. 5. Lisinopril 20 mg b.i.d. 6. Magnesium oxide 400 mg daily. 7. Spironolactone 20 mg daily. 8. Warfarin 5 mg daily. 9. KCl 20 mEq daily. 10. Augmentin 500 mg b.i.d. for 2 more days. BRIEF HOSPITAL COURSE BY PROBLEM: 1. VFib arrest. He presented to the emergency department after a cardiac arrest in the field. Bystander CPR was initiated and ROSC was obtained upon arrival to the emergency department after two defibrillations. Upon arrival to the emergency department, EKG with ST elevations was noted. After ROSC was obtained, the patient required intubation and he was taken to the labor relations officer emergently. 2. Chronic total occlusion of the LAD. In the labor relations officer on the day of admission , a chronic total occlusion with collaterals was found in the LAD. There was an attempt made to cross the lesion; however, it was unable to be crossed. Please refer to the left heart cath report for complete details of this procedure. He was noted to have collateral circulation. The left heart cath was aborted and he was returned to the ICU. For his chronic total occlusion of the LAD, he has continued on an aspirin, a high-potency statin, a beta emanuel, and an DOROTEO inhibitor. 3. Ischemic cardiomyopathy. He had an echocardiogram on 05/11/17, which showed an ejection fraction of 30% with a wall motion abnormality in the distribution of a mid wraparound LAD and a large thrombus that filled much of the LV apex. His depressed ejection fraction was thought to be the etiology of his VFib arrest. As such, an ICD was placed for secondary prevention on . Regarding his cardiomyopathy, he remained euvolemic during this hospitalization and did not require diuresis. He was maintained on aspirin, statin, beta emanuel, DOROTEO inhibitor, and spironolactone. 4. LV thrombus. On his echocardiogram, a large LV thrombus was noted. He was started on a heparin drip and warfarin given his procedure of pacemaker, so that we would have control over his anticoagulation. At the time of discharge, his INR is 2.20 and he is currently on warfarin 5 mg daily. He will be continued on warfarin 5 mg daily and have a followup appointment with his structurer tomorrow in [place] on 05/23/17. He agrees to monitor his INR. 5. Pocket hematoma. After his procedure, a moderate-sized hematoma was noted and he did have a drop in his hemoglobin. Therefore, the Lovenox bridge was discontinued and he was continued on warfarin and we allowed his INR to rise with warfarin only. He did require 1 unit of packed red blood cells for hemoglobin less than 8 in the setting of coronary disease. He had good response to 1 unit of packed red blood cells and at the time of discharge, his pocket hematoma has improved markedly. It is approximately 3 cm in diameter. 6. Aspiration pneumonia. He was noted to be afebrile and had a right middle lobe infiltrate on chest x-ray. He was treated with vancomycin and pip/tazo and evaluated by Infectious Diseases, who deescalated his antibiotics to Augmentin at the time of discharge. He needs 2 more days of p.o. Augmentin. 7. Hypokalemia and hypomagnesemia. He was noted to be hypokalemic and hypomagnesemic throughout his hospitalization, so he is being discharged on magnesium 400 mg daily and potassium 20 mEq daily. These should be monitored closely at the time of discharge. DISPOSITION: Mr. Veras is discharged to home on 05/22/17 in fair condition with his sister. His INR at the time of discharge is 2.20. His hemoglobin on 05/21/17 is 10.6. He has a followup appointment that has been arranged by Dr. Haskins with Dr. Man at [address] [place] [address] in [place]. Please note, Mr. Veras is undergoing approval for Medicaid that has been arranged by our manager social media during this admission. He is being discharged with 5 days of medications from our inpatient pharmacy and the remainder of his prescriptions has been sent electronically to his [facility] in [place]. Please fee free to contact me with any questions about Mr. Veras's discharge. My phone number is [phone]. ADDENDUM: PHYSICAL EXAM AT THE TIME OF DISCHARGE: Vitals: Temperature 99.1, heart rate 70, respiratory rate 20, pulse ox 100% on room air, blood pressure 98/68. General: Alert, thin, well appearing man in no distress. HEENT: Pupils equal round and reactive to light. No nystagmus. No conjunctival injection. No mucosa lesions. No pharyngeal exudates or erythema. Neck: No JVP. No cervical adenopathy. Thyroid nonpalpable. Chest: Regular rate and rhythm. No murmurs. PMI nondisplaced. Lungs: Clear bilaterally. Left chest wall incision clean, dry without drainage, a 3 cm in diameter hematoma is present surrounding the incision. Radial pulses are 2+ bilaterally. Abdomen: Soft, nontender and nondistended. No guarding or rebound. Extremities: No edema. No rashes. No ulcers. [id number]/[facility] #: [id number]/CPS #: [id number] [facility]
--- NOTE | 2017-05-23 13:10 | DS ---
DISCHARGE SUMMARY: ADDENDUM: PHYSICAL EXAM AT THE TIME OF DISCHARGE: Vitals: Temperature 99.1, heart rate 70, respiratory rate 20, pulse ox 100% on room air, blood pressure 98/68. General: Alert, thin, well appearing man in no distress. HEENT: Pupils equal round and reactive to light. No nystagmus. No conjunctival injection. No mucosa lesions. No pharyngeal exudates or erythema. Neck: No JVP. No cervical adenopathy. Thyroid nonpalpable. Chest: Regular rate and rhythm. No murmurs. PMI nondisplaced. Lungs: Clear bilaterally. Left chest wall incision clean, dry without drainage, a 3 cm in diameter hematoma is present surrounding the incision. Radial pulses are 2+ bilaterally. Abdomen: Soft, nontender and nondistended. No guarding or rebound. Extremities: No edema. No rashes. No ulcers. [id number]/[facility] #: [id number] MTDD
== END 2017-05-22 19:15 | disposition home or self-care (01) | DRG 222 ==
LOC: ED 08:43 → EDBD 08:43 → CHICATH 09:04 → ICU 10:57 → MEDTELE 05-15 11:58
PROVIDERS: ADMIT Internal Medicine Cardiovascular Disease; ATTEND Internal Medicine
PROC: B2111ZZ Fluoroscopy of Multiple Coronary Arteries using Low Osmolar Contrast (ICD-10-PCS; 2017-05-07)
PROC: B41F1ZZ Fluoroscopy of Right Lower Extremity Arteries using Low Osmolar Contrast (ICD-10-PCS; 2017-05-07)
PROC: 5A1955Z Respiratory Ventilation, Greater than 96 Consecutive Hours (ICD-10-PCS; 2017-05-07)
PROC: 03HB33Z Insertion of Infusion Device into Right Radial Artery, Percutaneous Approach (ICD-10-PCS; 2017-05-07)
PROC: 0T9B70Z Drainage of Bladder with Drainage Device, Via Natural or Artificial Opening (ICD-10-PCS; 2017-05-07)
PROC: 04HK33Z Insertion of Infusion Device into Right Femoral Artery, Percutaneous Approach (ICD-10-PCS; 2017-05-07)
PROC: 0BH17EZ Insertion of Endotracheal Airway into Trachea, Via Natural or Artificial Opening (ICD-10-PCS; principal; 2017-05-07 09:00)
PROC: 3E033XZ Introduction of Vasopressor into Peripheral Vein, Percutaneous Approach (ICD-10-PCS; 2017-05-08)
PROC: 4A10X4Z Monitoring of Central Nervous Electrical Activity, External Approach (ICD-10-PCS; 2017-05-09)
PROC: 05HN33Z Insertion of Infusion Device into Left Internal Jugular Vein, Percutaneous Approach (ICD-10-PCS; 2017-05-09)
PROC: B544ZZA Ultrasonography of Left Jugular Veins, Guidance (ICD-10-PCS; 2017-05-09)
PROC: 02HK3KZ Insertion of Defibrillator Lead into Right Ventricle, Percutaneous Approach (ICD-10-PCS; 2017-05-14)
PROC: 0JH608Z Insertion of Defibrillator Generator into Chest Subcutaneous Tissue and Fascia, Open Approach (ICD-10-PCS; 2017-05-14)
PROC: 30233N1 Transfusion of Nonautologous Red Blood Cells into Peripheral Vein, Percutaneous Approach (ICD-10-PCS; 2017-05-18)
DX: I21.19 ST elevation (STEMI) myocardial infarction involving other coronary artery of inferior wall (principal); I46.2 Cardiac arrest due to underlying cardiac condition; J96.01 Acute respiratory failure with hypoxia; R57.8 Other shock; J15.211 Pneumonia due to Methicillin susceptible Staphylococcus aureus; A41.9 Sepsis, unspecified organism; J69.0 Pneumonitis due to inhalation of food and vomit; I50.21 Acute systolic (congestive) heart failure; I49.01 Ventricular fibrillation; E87.2 Acidosis; I16.1 Hypertensive emergency; N17.9 Acute kidney failure, unspecified; L76.32 Postprocedural hematoma of skin and subcutaneous tissue following other procedure; I47.2 Ventricular tachycardia; I25.5 Ischemic cardiomyopathy; I11.0 Hypertensive heart disease with heart failure; I80.8 Phlebitis and thrombophlebitis of other sites; I25.10 Atherosclerotic heart disease of native coronary artery without angina pectoris; F12.90 Cannabis use, unspecified, uncomplicated; D64.9 Anemia, unspecified; E83.42 Hypomagnesemia; T68.XXXA Hypothermia, initial encounter; E87.6 Hypokalemia; R19.7 Diarrhea, unspecified; R10.9 Unspecified abdominal pain; Y83.8 Other surgical procedures as the cause of abnormal reaction of the patient, or of later complication, without mention of misadventure at the time of the procedure; Y92.239 Unspecified place in hospital as the place of occurrence of the external cause; Z79.82 Long term (current) use of aspirin; Z79.01 Long term (current) use of anticoagulants; Z82.49 Family history of ischemic heart disease and other diseases of the circulatory system; Z87.820 Personal history of traumatic brain injury; Z72.89 Other problems related to lifestyle
CPT/HCPCS: 33249; 36415; 70250; 70450; 71045; 71046; 71250; 80048; 80053; 80061; 80202; 81003; 82248; 82550; 82553; 82565; 82728; 82803; 83036; 83540; 83550; 83605; 83721; 83735; 83880; 84145; 84439; 84443; 84479; 84484; 84520; 85025; 85027; 85060; 85610; 85730; 86703; 86850; 86900; 86901; 86922; 87040; 87070; 87077; 87150; 87186; 87205; 87641; 87899; 90686; 90732; 93005; 93306; 93308; 93970; 94002; 94003; 94760; 95822; 99156; 99157; 99284; A9270-GY; C1722; C1725; C1760; C1769; C1887; C1898; J0282; J0330; J0360; J0690; J1250; J1644; J1650; J1940; J2175; J2250; J2543; J2704; J3010; J3370; J3411; J3475; J3480; J3490; P9040